=== PATIENT | male | born 1955 | race Two or more races ===

== ENCOUNTER 2020-05-07 09:46 | Outpatient (REF) | payer OTHER, SELFPAY | END 2020-05-07 09:47 | disposition home or self-care (01) | LOC: HO.HMGCLDS 09:46 | PROVIDERS: Visit Provider Internal Medicine | DX: Z20.828 Contact with and (suspected) exposure to other viral communicable diseases (principal) | CPT/HCPCS: U0003 ==

== ENCOUNTER 2020-09-10 08:23 | Outpatient (REF) | payer OTHER, SELFPAY ==
--- NOTE | ~2020-09-10 | US_ITS ---
EXAMINATION: US ABDOMEN COMPLETE CLINICAL INFORMATION: Right upper quadrant abdominal swelling and mass. COMPARISON: X-ray abdomen 06/07/2020. Ultrasound kidneys and bladder 05/31/2020 and 05/08/2017. KUB 02/10/2015 and 11/25/2014. TECHNIQUE: Real-time imaging of the abdominal viscera. Technically limited study secondary to bowel gas and body habitus. FINDINGS: PANCREAS: Not visualized ABDOMINAL AORTA: Not visualized INFERIOR VENA CAVA: Not visualized LIVER: Liver echotexture is increased. The liver is enlarged. The right lobe measures 26 cm in length. Evaluation of the liver is limited due to patient body habitus. No focal liver lesion is seen. There is no biliary duct dilatation. The main portal vein is patent with appropriate hepatopedal flow. GALLBLADDER: Normal. The gallbladder is physiologically distended without evidence of stones, sludge, polyps, wall thickening or pericholecystic fluid. COMMON BILE DUCT: Not well visualized. The visualized segment is normal in caliber measuring 0.6 cm in diameter. RIGHT KIDNEY: There is a 5 mm stone in the upper pole. There are 2 cysts measuring 4 cm in the lower pole and 1 x 1.5 cm in the lower pole. The latter cyst may have small focus of wall calcification. No hydronephrosis The kidney measures 13.2 cm in maximum dimension. LEFT KIDNEY: There is a 3 mm stone in the upper pole. No hydronephrosis or focal parenchymal lesions. The kidney measures 14.5 cm in maximum dimension. SPLEEN: There is a calcification in the spleen. The spleen measures 11.7 cm in maximum dimension. FREE FLUID: None. US/US abdomen complete IMPRESSION: Very limited exam due to patient body habitus. Enlarged echogenic liver probably representing fatty infiltration. Bilateral renal stones. Right renal cysts.
== END 2020-09-10 08:24 | disposition home or self-care (01) ==
LOC: HO.HMGCX 08:23
PROVIDERS: PCP Internal Medicine; Visit Provider Internal Medicine
DX: R19.01 Right upper quadrant abdominal swelling, mass and lump (principal)
CPT/HCPCS: 76700

== ENCOUNTER 2020-12-03 07:52 | Outpatient (REF) | payer OTHER, SELFPAY ==
[2020-12-03 11:32] LABS: MANUAL DIFF FLAG NO
[2020-12-03 11:51] LABS: Basophils Percent Auto 0.5 % (0-2); Eosinophils Absolute Auto 0.2 X10*3/uL (0.0-0.4); Eosinophils Percent Auto 2.9 % (0-4); Hematocrit 43.6 % (42-52); Hemoglobin 13.9 g/dl (14.0-18.0); Imm Gran Abs Auto 0.05 X10*3/uL (0.00-0.03); Imm Gran Pct Auto 0.6 % (0.0-0.4); Lymphocytes Absolute Auto 1.9 X10*3/uL (1.2-4.9); Lymphocytes Percent Auto 24.1 % (20-40); Mean Corpuscular HGB Conc 31.9 g/dl (31.0-36.0); Mean Corpuscular Hemoglobin 27.5 pg (27.0-33.0); Mean Corpuscular Volume 86.2 fL (80-98); Mean Platelet Volume 10.4 fL (9.4-12.4); Monocytes Absolute Auto 0.5 X10*3/uL (0.1-1.2); Monocytes Percent Auto 6.8 % (2-11); Neutrophils Absolute Auto 5.1 X10*3/uL (2.0-8.3); Neutrophils Percent Auto 65.1 % (45-73); Platelet Count 250 X10*3/uL (160-400); Red Blood Count 5.06 X10*6/uL (4.60-5.80); Red Cell Distribution Width 14.6 % (11.0-16.0); White Blood Count 7.9 X10*3/uL (4.8-10.8)
[2020-12-03 11:57] LABS: Alanine Aminotransferase 43 U/L (0-40); Alkaline Phosphatase 78 U/L (39-117); Anion Gap 15 (12-20); Aspartate Amino Transferase 25 U/L (5-37); Bilirubin Total 0.5 mg/dL (0.0-1.0); Blood Urea Nitrogen 11 mg/dL (9-16); Calcium 8.8 mg/dL (8.4-10.2); Carbon Dioxide 25 mmol/L (22-29); Chloride 103 mmol/L (96-108); Cholesterol 120 mg/dL; Estimated Glomerular Filt Rate > 60; Glucose Fasting 117 mg/dL (60-99); HDL Cholesterol 34 mg/dL; LDL Cholesterol Calculated 52 mg/dl; Sodium 139 mmol/L (135-145); Total Protein 6.7 g/dL (6.5-8.0); Triglycerides 171 mg/dL
[2020-12-03 12:24] LABS: Creatinine Urine 158.12 mg/dL
[2020-12-03 12:40] LABS: Microalbum/Creatinine Ratio Ur 545.7 ug/mg cr
== END 2020-12-03 07:53 | disposition home or self-care (01) ==
LOC: HO.HMGCLDS 07:52
PROVIDERS: PCP Internal Medicine; Visit Provider Internal Medicine
DX: Z00.01 Encounter for general adult medical examination with abnormal findings (principal); R19.01 Right upper quadrant abdominal swelling, mass and lump; E11.9 Type 2 diabetes mellitus without complications; E66.01 Morbid (severe) obesity due to excess calories; E78.5 Hyperlipidemia, unspecified; I10 Essential (primary) hypertension
CPT/HCPCS: 36415; 80053; 80061; 82043; 82306; 85025

== ENCOUNTER 2021-11-10 07:55 | Outpatient (REF) | payer OTHER, SELFPAY ==
[2021-11-10 11:07] LABS: MANUAL DIFF FLAG NO
[2021-11-10 11:20] LABS: Basophils Percent Auto 0.4 % (0-2); Eosinophils Absolute Auto 0.1 X10*3/uL (0.0-0.4); Eosinophils Percent Auto 1.9 % (0-4); Hemoglobin 15.7 g/dl (14.0-18.0); Imm Gran Abs Auto 0.04 X10*3/uL (0.00-0.03); Imm Gran Pct Auto 0.5 % (0.0-0.4); Lymphocytes Absolute Auto 2.5 X10*3/uL (1.2-4.9); Lymphocytes Percent Auto 33.4 % (20-40); Mean Corpuscular Hemoglobin 27.3 pg (27.0-33.0); Mean Corpuscular Volume 85.2 fL (80.0-98.0); Mean Platelet Volume 11.5 fL (9.4-12.4); Monocytes Absolute Auto 0.6 X10*3/uL (0.1-1.2); Monocytes Percent Auto 7.4 % (2-11); Neutrophils Absolute Auto 4.2 x10*3/uL (2.0-8.3); Neutrophils Percent Auto 56.4 % (45-73); Platelet Count 228 X10*3/uL (160-400); Red Blood Count 5.75 X10*6/uL (4.60-5.80); Red Cell Distribution Width 14.1 % (11.0-16.0); White Blood Count 7.4 X10*3/uL (4.8-10.8)
[2021-11-10 11:48] LABS: Estimated Average Glucose 341 mg/dL; Hemoglobin A1c % 13.5 %
[2021-11-10 11:54] LABS: Vitamin D 25-OH Total 9.3 ng/mL (>30)
[2021-11-10 11:58] LABS: Alanine Aminotransferase 36 U/L (0-40); Anion Gap 20 (12-20); Aspartate Amino Transferase 29 U/L (5-37); Blood Urea Nitrogen 19 mg/dL (9-16); Calcium 9.5 mg/dL (8.4-10.2); Carbon Dioxide 22 mmol/L (22-29); Chloride 96 mmol/L (96-108); Cholesterol 126 mg/dL; Estimated Glomerular Filt Rate > 60; HDL Cholesterol 27 mg/dL; Iron 108 mcg/dL (45-160); LDL Cholesterol Calculated 54 mg/dl; Percent Iron Saturation 29 % (15-50); Potassium 4.6 mmol/L (3.3-5.1); Sodium 133 mmol/L (135-145); Total Iron Binding Capacity 370 mcg/dL (228-428); Triglycerides 226 mg/dL; Unsaturated Iron Binding 262 ug/dL
[2021-11-10 12:04] LABS: Folate 19.9 ng/mL (> or = 4.0); Vitamin B12 1082 pg/mL (200-900)
[2021-11-10 12:35] LABS: Glucose Fasting 446 mg/dL (60-99)
== END 2021-11-10 07:56 | disposition home or self-care (01) ==
LOC: HO.HMGCLDS 07:55
PROVIDERS: Visit Provider Internal Medicine
DX: E11.9 Type 2 diabetes mellitus without complications (principal); E66.01 Morbid (severe) obesity due to excess calories; E78.5 Hyperlipidemia, unspecified; I10 Essential (primary) hypertension
CPT/HCPCS: 36415; 80048; 80061; 82306; 82607; 82746; 83036; 83540; 84450; 84460; 85025

== ENCOUNTER 2022-03-03 06:49 | Outpatient (REF) | payer OTHER, SELFPAY ==
[2022-03-03 11:55] LABS: Estimated Average Glucose 157 mg/dL; Hemoglobin A1c % 7.1 %
[2022-03-03 12:51] LABS: Alanine Aminotransferase 23 U/L (0-40); Anion Gap 18 (12-20); Aspartate Amino Transferase 19 U/L (5-37); Blood Urea Nitrogen 28 mg/dL (9-16); Calcium 9.3 mg/dL (8.4-10.2); Carbon Dioxide 24 mmol/L (22-29); Chloride 100 mmol/L (96-108); Cholesterol 112 mg/dL; Estimated Glomerular Filt Rate 46; Glucose Fasting 122 mg/dL (60-99); HDL Cholesterol 31 mg/dL; LDL Cholesterol Calculated 56 mg/dl; Potassium 4.4 mmol/L (3.3-5.1); Sodium 138 mmol/L (135-145); Triglycerides 128 mg/dL
[2022-03-03 12:57] LABS: Vitamin D 25-OH Total 63.1 ng/mL (>30)
== END 2022-03-03 06:50 | disposition home or self-care (01) ==
LOC: HO.HMGCLDS 06:49
PROVIDERS: PCP Internal Medicine; Visit Provider Internal Medicine
DX: E11.29 Type 2 diabetes mellitus with other diabetic kidney complication (principal); E55.9 Vitamin D deficiency, unspecified; E78.5 Hyperlipidemia, unspecified; I10 Essential (primary) hypertension
CPT/HCPCS: 36415; 80048; 80061; 82306; 83036; 84450; 84460

== ENCOUNTER 2022-05-26 08:28 | Outpatient (REF) | payer OTHER, SELFPAY ==
[2022-05-26 12:25] LABS: Creatinine Urine 137.11 mg/dL; Microalbum/Creatinine Ratio Ur 90.4 ug/mg cr
[2022-05-26 12:57] LABS: Estimated Average Glucose 134 mg/dL; Hemoglobin A1c % 6.3 %
[2022-05-26 14:59] LABS: Alanine Aminotransferase 26 U/L (0-40); Anion Gap 17 (12-20); Aspartate Amino Transferase 25 U/L (5-37); Blood Urea Nitrogen 25 mg/dL (9-16); Calcium 9.3 mg/dL (8.4-10.2); Carbon Dioxide 22 mmol/L (22-29); Chloride 107 mmol/L (96-108); Cholesterol 101 mg/dL; Estimated Glomerular Filt Rate > 60; Glucose Fasting 117 mg/dL (60-99); HDL Cholesterol 28 mg/dL; LDL Cholesterol Calculated 53 mg/dl; Potassium 4.5 mmol/L (3.3-5.1); Sodium 141 mmol/L (135-145); Triglycerides 100 mg/dL; Vitamin D 25-OH Total 36.8 ng/mL (>30)
== END 2022-05-26 08:29 | disposition home or self-care (01) ==
LOC: HO.HMGCLDS 08:28
PROVIDERS: PCP Internal Medicine; Visit Provider Internal Medicine
DX: E78.5 Hyperlipidemia, unspecified (principal); I10 Essential (primary) hypertension; E11.29 Type 2 diabetes mellitus with other diabetic kidney complication
CPT/HCPCS: 36415; 80048; 80061; 82043; 82306; 83036; 84450; 84460

== ENCOUNTER 2022-08-18 13:14 | Outpatient (AMB) | payer OTHER, SELFPAY ==
[2022-08-18 13:37] VITALS: BP 122/80; PULSE 82; O2SAT 95; BMI 44.1
--- NOTE | 2022-08-18 13:37 | A.OFFPC_ITS ---
Vital Signs 08/18/22 13:37 Height 5 ft 5 in Weight 265 lb BMI 44.1 BP 122/80 Blood Pressure Location Rt brachial Position Sitting Pulse 82 Pulse Source Pulse Oximeter Pulse Oximetry (%) 95 Oxygen Delivery Method Room Air Intake Visit Reasons: f/u on labs Intake Note: Pt is here today to f/u his labs from 05/2022 Allergies Seasonal Allergies Allergy (Mild, Verified 10/08/23 11:16) sneezing, runny nose Medication List - Last Reconciled 08/18/22 by Caitlyn Arreola MD atorvastatin 20 mg PO Q2D 90 days blood sugar diagnostic ([employer] Ultra Test strips) Test blood sugar 3 times per day lancets ([employer] Delica Lancets) test blood sugar 3 times per day lisinopril-hydrochlorothiazide 10-12.5 mg 1 tab PO DAILY metformin 1,000 mg (2 x 500 mg) PO BID metoprolol tartrate 25 mg PO BID 90 days Trulicity (dulaglutide) 0.75 mg (0.5 mL) subcut QWEEK NS venlafaxine ER 75 mg PO DAILY Tobacco use date assessed: 08/18/22 Fall risk assessment: No Falls in past year Last assessed Fall Risk: 08/18/22 HPI f/u on labs HPI Details 67-year-old male with diabetes mellitus, dyslipidemia hypertension, here today for his follow-up. [facility] Medical History Vitamin D deficiency Diabetic neuropathy associated with diabetes mellitus due to underlying condition Plantar callus Anemia Type 2 diabetes mellitus with other diabetic kidney complication Lumbago History of nephrolithiasis SYLVIA on CPAP Type 2 diabetes mellitus without complication, with no history of insulin use Morbid obesity Abdominal mass, RUQ (right upper quadrant) Surgical History H/O ventral hernia repair Family History Other No significant family history Social History Housing: Apartment Alcohol intake: never Patient Tobacco Use Status: Never used Tobacco e-Cigarette/Vaping Use: Never Used Current occupational status: disabled Cognitive needs: No Hearing needs: No Vision needs: No Questionnaire PHQ-9 Over the last 2 weeks, how often have you been bothered by any of the following problems? 1. Little interest or pleasure in doing things: several days 2. Feeling down, depressed, or hopeless: several days 3. Trouble falling or staying asleep, or sleeping too much: several days 4. Feeling tired or having little energy: several days 5. Poor appetite or overeating: not at all 6. Feeling bad about yourself - or that you are a failure or have let yourself or your family down: several days 7. Trouble concentrating on things, such as reading the newspaper or watching television: not at all 8. Moving or speaking so slowly that other people could have noticed. Or the opposite - being so fidgety or restless that you have been moving around a lot more than usual: several days 9. Thoughts that you would be better off or of hurting yourself in some way: several days Total score: 7 Depression Screening Interpretation: Positive (Currently on venlafaxine) Depression Screening Follow-up: Existing condition and In treatment Source: Developed by Drs. Asad Mon, Siobhan Carrillo, Jalil Grijalva and colleagues, with an educational billy from [employer]. Thrive Questionnaire Declines Thrive assessment: No Date Thrive assessed: 08/18/22 I am a: Patient What is your living situation today?: I have a steady place to live Within the past 12 months, did the food you bought not last and you didn't have the money to get more?: Never true Within the past 12 months, did you worry whether your food would run out before you got money to buy more?: Never true Do you have trouble paying for medicines?: No Do you have trouble getting transportation to medical appointments?: No Do you have trouble paying your heating and electricity bill?: No Do you have trouble taking care of your child, family member or friend?: No Do you have trouble with day-to-day activities such as bathing, preparing meals, shopping, managing finances, etc.?: No Are you currently unemployed and looking for a job?: No Are you interested in more education?: No AUDIT C Alcohol Use Questionnaire (AUDIT-C) 1. How often do you have a drink containing alcohol?: Never Total Score: 0 NINFA-7 AMB Questionnaire NINFA-7 Date NINFA - 7 assessed: 08/18/22 Feeling nervous, anxious, or on edge: 1 = Several days Not being able to stop or control worryin = Several days Worrying too much about different things: 1 = Several days Trouble relaxin = Several days Being so restless that it is hard to sit still: 0 = Not at all Becoming easily annoyed or irritable: 0 = Not at all Feeling afraid as if something awful might happen: 0 = Not at all Total NINFA-7 score (0-4 normal; 5-9 mild; 10-14 moderate; 15-21 severe): 4 Source: Developed by Drs. Asad Mon, Siobhan Carrillo, Jalil Grijalva and colleagues, with an educational billy from [employer]. Physical exam (Primary Care) Vital Signs: Last Vital Signs Pulse 82 08/18/22 13:37 BP 122/80 08/18/22 13:37 Pulse Ox 95 08/18/22 13:37 Oxygen Delivery Method Room Air 08/18/22 13:37 BMI result Body Mass Index 44.1 Tobacco/Smoking Status: Tobacco use Status Tobacco use date assessed 08/18/22 08/18/22 13:46 Patient Tobacco Use Status Never used Tobacco 08/18/22 13:46 e-Cigarette/Vaping Use Never Used 08/18/22 13:46 PHQ-9: PHQ-9 Score PHQ-9: Total score 7 08/18/22 14:12 Depression Screening Interpretation: Positive (Currently on venlafaxine) Depression Screening Follow-up: Existing condition and In treatment Thrive Assessment: Date of Thrive Assessment Date Thrive assessed 08/18/22 08/18/22 13:46 Results Reviewed Results Reviewed: Laboratory Tests 05/26/22 08:35 Estimat Average Glucose 134 Hemoglobin A1c % 6.3 Name: Waqar Sánchez Age/Sex: 67/M : 1955 Unit#: [id number] Attend Dr: Caitlyn Arreola MD Re05/26/22 Status: DEP REF Location: [facility] Disch: SPEC : [id number] [place]: 05/26/22 STATUS: COMP REQ : [id number] RECD: 05/26/22 [facility] DR: Caitlyn Arreola MD COMP: 05/26/22 ENTERED: 05/26/22 [facility] DR: ORDERED: Met Prof Fast, AST, ALT, Lipid Panel, Vitamin D 25-OH Test Result Flag Reference Sodium 141 135-145 mmol/L Potassium 4.5 3.3-5.1 mmol/L CL 107 96-108 mmol/L CO2 22 22-29 mmol/L Gap 17 12-20 BUN 25 H 9-16 mg/dL Creat 1.01 0.5-1.4 mg/dL EGFR > 60 NOTE: For -[place] individuals, multiply the result by 1.210. Chronic Kidney Disease: Estimated GFR < 60 mL/min/1.73m2 Severe Kidney Disease: Estimated GFR < 15 mL/min/1.73m2 FBS 117 H 60-99 mg/dL A fasting glucose from 100-125 mg/dl is considered impaired (pre-diabetes). CA 9.3 8.4-10.2 mg/dL AST (GOT) 25 5-37 U/L Slight Hemolysis ALT (GPT) 26 0-40 U/L Triglyceride 100 mg/dL Desirable Triglyceride: less than 150 mg/dL Borderline High Triglyceride 150-199 mg/dL High Triglyceride: 200-499 mg/dL Very High Triglyceride: greater than or equal to 5OO mg/dL Chol 101 mg/dL Desirable Cholesterol: less than 200 mg/dL Borderline High Cholesterol: 200-239 mg/dL High Cholesterol: greater than 239 mg/dL LDL Calculated 53 mg/dl Desirable LDL: less than 100 mg/dL Near Optimal/Above Optimal LDL: 110-129 mg/dL Borderline High LDL: 130-159 mg/dL High LDL: 160-189 mg/dL Very High LDL: greater than or equal to 190 mg/dL HDL 28 mg/dL Desirable HDL: greater than 40 mg/dL Note: This HDL assay may give artificially low results in patients with liver disease. Vit D 25-OH Tot 36.8 >30 ng/mL Health Based Reference Values* < 20 ng/mL Deficient 20-30 ng/mL Insufficient > 30 ng/mL Sufficient Laboratory Tests 05/26/22 08:40 Urine Creatinine 137.11 Urine Microalbumin 124.0 Microalb/Creat Ratio 90.4 Assessment and Plan Assessment & Plan (1) Diabetic neuropathy associated with diabetes mellitus due to underlying condition: Code(s): E08.40 - Diabetes mellitus due to underlying condition with diabetic neuropathy, unspecified Plan: 05/2022 lab results reviewed with patient, with sugar and hemoglobin A1c stable and at goal. Continue with Trulicity 0.75 mg weekly and metformin 1000 mg twice a day. continue to check fasting blood sugar at home, maintain log and bring to next appointment for review. Reinforced diabetic diet and regular exercise with patient. Counseled regarding importance of yearly diabetes retinopathy screening. Patient advised to inspect feet daily, for any signs of injury, callus or infection. Compliance with diet and regular exercise again stressed. Blood pressure goal is less than 130/80, goal LDL is less than 100 and goal hemoglobin A1c is less than 7% repeat labs again in a month (2) Type 2 diabetes mellitus with other diabetic kidney complication: Code(s): E11.29 - Type 2 diabetes mellitus with other diabetic kidney complication Plan: 05/2022 lab results reviewed with patient, with sugar and hemoglobin A1c stable and at goal. Continue with Trulicity 0.75 mg weekly and metformin 1000 mg twice a day. continue to check fasting blood sugar at home, maintain log and bring to next appointment for review. Reinforced diabetic diet and regular exercise with patient. Counseled regarding importance of yearly diabetes retinopathy screening. Patient advised to inspect feet daily, for any signs of injury, callus or infection. Compliance with diet and regular exercise again stressed. Blood pressure goal is less than 130/80, goal LDL is less than 100 and goal hemoglobin A1c is less than 7% repeat labs again in a month (3) Hyperlipidemia: Code(s): E78.5 - Hyperlipidemia, unspecified Plan: Reviewed fasting lipid profile from 05/2022 with patient with levels within normal limits . Continue atorvastatin 20 mg every other day , in addition to adherence to low-cholesterol diet and regular exercise, at least 30 minutes 3 to 4 times a week. Advised patient to make healthy food choices, eat more fruits, vegetables, whole grains, wild caught fish and low-fat dairy. Limit amount of meat and fried or fatty food products, as well as processed foods and fast foods. Fasting lipid panel ordered (4) Depression: Code(s): F32.9 - Major depressive disorder, single episode, unspecified Plan: Continue venlafaxine ER 75 mg (5) Hypertension: Code(s): I10 - Essential (primary) hypertension Plan: Blood pressure at goal of less than 130/80. Continue with current medication. Reinforced importance of following a low sodium diet, getting regular exercise, and lowering stress levels. Orders: Orders Lipid Panel 09/06/22 E08.40 - Diabetes mellitus due to underlying condition with diabetic neuropathy, unspecified, E11.29 - Type 2 diabetes mellitus with other diabetic kidney complication, E78.5 - Hyperlipidemia, unspecified, F32.9 - Major depressive disorder, single episode, unspecified, I10 - Essential (primary) hypertension Microalbumin, Random (w Creat) 09/06/22 E08.40 - Diabetes mellitus due to underlying condition with diabetic neuropathy, unspecified, E11.29 - Type 2 diabetes mellitus with other diabetic kidney complication, E78.5 - Hyperlipidemia, unspecified, F32.9 - Major depressive disorder, single episode, unspecified, I10 - Essential (primary) hypertension Aspartate Amino Transferase 09/06/22 E08.40 - Diabetes mellitus due to underl robin condition with diabetic neuropathy, unspecified, E11.29 - Type 2 diabetes mellitus with other diabetic kidney complication, E78.5 - Hyperlipidemia, unspecified, F32.9 - Major depressive disorder, single episode, unspecified, I10 - Essential (primary) hypertension Hemoglobin A1c 09/06/22 E08.40 - Diabetes mellitus due to underlying condition with diabetic neuropathy, unspecified, E11.29 - Type 2 diabetes mellitus with other diabetic kidney complication, E78.5 - Hyperlipidemia, unspecified, F32.9 - Major depressive disorder, single episode, unspecified, I10 - Essential (primary) hypertension Basic Metabolic Panel Fasting 09/06/22 E08.40 - Diabetes mellitus due to underlying condition with diabetic neuropathy, unspecified, E11.29 - Type 2 diabetes mellitus with other diabetic kidney complication, E78.5 - Hyperlipidemia, unspecified, F32.9 - Major depressive disorder, single episode, unspecified, I10 - Essential (primary) hypertension Alanine Aminotransferase 09/06/22 E08.40 - Diabetes mellitus due to underlying condition with diabetic neuropathy, unspecified, E11.29 - Type 2 diabetes mellitus with other diabetic kidney complication, E78.5 - Hyperlipidemia, unspecified, F32.9 - Major depressive disorder, single episode, unspecified, I10 - Essential (primary) hypertension Medications: Changed From Trulicity 0.75 mg (0.5 mL) subcut QWEEK 6 mL 1RF NS E11.29 - Type 2 diabetes mellitus with other diabetic kidney complication To Trulicity (dulaglutide) 0.75 mg (0.5 mL) subcut QWEEK 2.5 mL 5RF 30 days NS E11.29 - Type 2 diabetes mellitus with other diabetic kidney complication From metformin 1,000 mg (2 x 500 mg) PO BID 360 tabs 1RF E11.9 - Type 2 diabetes mellitus without complications To metformin 1,000 mg PO BID 180 tabs 3RF 3 months E11.9 - Type 2 diabetes mellitus without complications Refilled metoprolol tartrate 25 mg PO BID 180 tabs 1RF 90 days venlafaxine ER 75 mg PO DAILY 90 caps 4RF Coding Level of Care Code Est Pt Level 4 (66531) Complex EM visit Add On G2211 Diagnoses Diabetic neuropathy associated with diabetes mellitus due to underlying condition E08.40 Type 2 diabetes mellitus with other diabetic kidney complication E11.29 Hyperlipidemia E78.5 Depression F32.9 Hypertension I10
== END 2022-08-18 15:05 | disposition home or self-care (01) ==
LOC: HO.HMGC 13:14
PROVIDERS: PCP Internal Medicine; Visit Provider Internal Medicine
DX: E08.40 Diabetes mellitus due to underlying condition with diabetic neuropathy, unspecified (principal); E11.29 Type 2 diabetes mellitus with other diabetic kidney complication; E78.5 Hyperlipidemia, unspecified; F32.9 Major depressive disorder, single episode, unspecified; I10 Essential (primary) hypertension
CPT/HCPCS: 99499

== ENCOUNTER 2023-01-23 06:01 | Outpatient (REF) | payer OTHER, SELFPAY ==
[2023-01-23 12:12] LABS: Estimated Average Glucose 160 mg/dL; Hemoglobin A1c % 7.2 %
[2023-01-23 12:30] LABS: Creatinine Urine 123.86 mg/dL
[2023-01-23 12:38] LABS: Alanine Aminotransferase 22 U/L (0-40); Anion Gap 11 (12-20); Aspartate Amino Transferase 18 U/L (5-37); Blood Urea Nitrogen 20 mg/dL (9-16); Calcium 9.7 mg/dL (8.4-10.2); Carbon Dioxide 27 mmol/L (22-29); Chloride 104 mmol/L (96-108); Cholesterol 96 mg/dL; Estimated Glomerular Filt Rate > 60; Glucose Fasting 137 mg/dL (60-99); HDL Cholesterol 29 mg/dL; LDL Cholesterol Calculated 47 mg/dl; Potassium 3.7 mmol/L (3.3-5.1); Sodium 138 mmol/L (135-145); Triglycerides 100 mg/dL
[2023-01-23 12:47] LABS: Microalbum/Creatinine Ratio Ur 678.9 ug/mg cr
== END 2023-01-23 06:02 | disposition home or self-care (01) ==
LOC: HO.HMGCLDS 06:01
PROVIDERS: PCP Internal Medicine; Visit Provider Internal Medicine
DX: E11.29 Type 2 diabetes mellitus with other diabetic kidney complication (principal); F32.9 Major depressive disorder, single episode, unspecified; I10 Essential (primary) hypertension; E78.5 Hyperlipidemia, unspecified
CPT/HCPCS: 36415; 80048; 80061; 82043; 83036; 84450; 84460

== ENCOUNTER 2023-02-15 14:39 | Outpatient (AMB) | payer OTHER, SELFPAY ==
--- NOTE | 2023-02-15 14:51 | A.OFFPC_ITS ---
Vital Signs 02/15/23 14:57 Height 5 ft 5 in Weight 265 lb BMI 44.1 BP 140/86 H Blood Pressure Location Rt brachial Position Sitting Pulse 73 Pulse Source Pulse Oximeter Pulse Oximetry (%) 98 Oxygen Delivery Method Room Air Intake Visit Reasons: 6 month follow up Lipids, HTN DM Intake Note: Pt is here today for his 6mo. f/u lipids, HTN and DM Allergies Seasonal Allergies Allergy (Mild, Verified 02/15/23 15:11) sneezing, runny nose Medication List - Last Reconciled 02/15/23 by Caitlyn Arreola MD atorvastatin 20 mg PO Q2D 90 days blood sugar diagnostic ([employer] Ultra Test strips) Test blood sugar 3 times per day lancets ([employer] Delica Lancets) test blood sugar 3 times per day lisinopril-hydrochlorothiazide 10-12.5 mg 1 tab PO DAILY metformin 1,000 mg PO BID 3 months metoprolol tartrate 25 mg PO BID 90 days Trulicity (dulaglutide) 0.75 mg (0.5 mL) subcut QWEEK 30 days NS venlafaxine ER 75 mg PO DAILY Tobacco use date assessed: 02/15/23 Fall risk assessment: No Falls in past year Last assessed Fall Risk: 02/15/23 Dental Screening Dental Screen Date: 02/15/23 Did you have a dental visit in the last 12 months?: No Was dental information given to patient?: Patient declined HPI 6 month follow up Lipids, HTN DM HPI0 Details 67-year-old male with diabetes mellitus, dyslipidemia hypertension, here today for his follow-up. Has not been very compliant with his diet, nor has she been getting much exercise. Has gained weight, with blood pressure elevated on today's visit. Has been compliant with his medications, no new complaints at present time. [facility] Medical History (Updated 02/15/23 @ 15:22 by Caitlyn Arreola MD) Abdominal mass, RUQ (right upper quadrant) Anemia Diabetic neuropathy associated with diabetes mellitus due to underlying condition History of nephrolithiasis Lumbago Morbid obesity SYLVIA on CPAP Plantar callus Type 2 diabetes mellitus with other diabetic kidney complication Type 2 diabetes mellitus without complication, with no history of insulin use Vitamin D deficiency Surgical History H/O ventral hernia repair Family History Other No significant family history Social History Housing: Apartment Alcohol intake: never Patient Tobacco Use Status: Never used Tobacco e-Cigarette/Vaping Use: Never Used Current occupational status: disabled Cognitive needs: No Hearing needs: No Vision needs: No Questionnaire Thrive Questionnaire Date Thrive assessed: 08/18/22 NINFA-7 AMB Questionnaire NINFA-7 Date NINFA - 7 assessed: 08/18/22 Source: Developed by Drs. Asad Mon, Siobhan Carrillo, Jalil Grijalva and colleagues, with an educational billy from [employer]. Review of Systems Const Denies body aches, Denies fever(s), Denies headache(s), Denies weakness, Denies weight gain and Denies weight loss Eyes Denies change in vision ENT Denies dizziness, Denies headache(s), Denies nasal congestion, Denies nasal discharge and Denies sore throat Card Denies chest pain, Denies lightheadedness and Denies dyspnea Resp Denies chest congestion, Denies cough and Denies dyspnea GI Denies abdominal pain, Denies change in bowel habits and Denies heartburn Denies hematuria, Denies difficulty urinating, Denies dysuria and Denies urinary urgency Musc Reports no additional complaints Skin/Breast Denies lesions and Denies rash Neuro Denies dizziness, Denies headache(s) and Denies weakness Endo Reports no additional complaints Kevan/Lymph Denies easy bleeding and Denies easy bruising Physical exam (Primary Care) Vital Signs: Last Vital Signs Pulse 73 02/15/23 14:57 BP 140/86 H 02/15/23 14:57 Pulse Ox 98 02/15/23 14:57 Oxygen Delivery Method Room Air 02/15/23 14:57 BMI result Body Mass Index 44.1 Tobacco/Smoking Status: Tobacco use Status Tobacco use date assessed 02/15/23 02/15/23 14:52 Patient Tobacco Use Status Never used Tobacco 02/15/23 14:51 e-Cigarette/Vaping Use Never Used 02/15/23 14:51 Thrive Assessment: Date of Thrive Assessment Date Thrive assessed 08/18/22 02/15/23 14:51 Const General: no acute distress and alert Nutritional Appearance: obese morbidly obese Orientation/consciousness: patient oriented x3 HENMT Ears: external ears normal General nose exam: Normal external nose present and No nasal discharge present Mouth: oropharynx normal and moist mucous membranes Eyes General: appearance normal, both eyes and all related structures Neck Neck: Yes full ROM, Yes no lymphadenopathy and Yes supple Resp Effort & Inspection: normal respiratory effort and able to speak in complete sentences Auscultation: clear to auscultation bilaterally Cardio Rate: regular rate Rhythm: regular rhythm Heart sounds: S1 normal heart sound present and S2 normal heart sound present GI Palpation (GI): Soft to palpation, nontender and no masses Auscultation: normal bowel sounds Neuro General: patient oriented x3, moves all extremities, no focal motor deficits and CN's II-XI intact bilaterally Extrem General: Yes full ROM, Yes no joint enlargement, Yes no pedal edema, Yes no calf tenderness and Yes normal gait Results Reviewed Results Reviewed: ENTERED: 01/23/[address]: ORDERED: Met Prof Fast, AST, ALT, Lipid Panel Test Result Flag Reference Site Sodium 138 135-145 mmol/L Potassium 3.7 3.3-5.1 mmol/L CL 104 96-108 mmol/L CO2 27 22-29 mmol/L Gap 11 L 12-20 BUN 20 H 9-16 mg/dL Creat 0.81 0.5-1.4 mg/dL EGFR > 60 NOTE: For -[place] individuals, multiply the result by 1.210. Chronic Kidney Disease: Estimated GFR < 60 mL/min/1.73m2 Severe Kidney Disease: Estimated GFR < 15 mL/min/1.73m2 FBS 137 H 60-99 mg/dL A fasting glucose of 126 mg/dl or greater on more than one occasion is considered diagnostic of diabetes. CA 9.7 8.4-10.2 mg/dL AST (GOT) 18 5-37 U/L ALT (GPT) 22 0-40 U/L Triglyceride 100 mg/dL Desirable Triglyceride: less than 150 mg/dL Borderline High Triglyceride 150-199 mg/dL High Triglyceride: 200-499 mg/dL Very High Triglyceride: greater than or equal to 5OO mg/dL Chol 96 mg/dL Desirable Cholesterol: less than 200 mg/dL Borderline High Cholesterol: 200-239 mg/dL High Cholesterol: greater than 239 mg/dL LDL Calculated 47 mg/dl Desirable LDL: less than 100 mg/dL Near Optimal/Above Optimal LDL: 110-129 mg/dL Borderline High LDL: 130-159 mg/dL High LDL: 160-189 mg/dL Very High LDL: greater than or equal to 190 mg/dL HDL 29 mg/dL Desirable HDL: greater than 40 mg/dL Note: This HDL assay may give artificially low results in patients with liver disease. Laboratory Tests 01/23/23 01/23/23 06:07 06:07 Estimat Average Glucose 160 Hemoglobin A1c % 7.2 Urine Creatinine 123.86 Urine Microalbumin 841.0 Microalb/Creat Ratio 678.9 Assessment and Plan Assessment & Plan (1) Type 2 diabetes mellitus with other diabetic kidney complication: Code(s): E11.29 - Type 2 diabetes mellitus with other diabetic kidney complication Plan: I hemoglobin A1c higher today as compared to last check at 7.2%. Will continue on current treatment with metformin and Trulicity, stressed importance of adhering to recommended diet and getting regular exercise. As well as getting yearly eye check for diabetes retinopathy screening. (2) Hyperlipidemia: Code(s): E78.5 - Hyperlipidemia, unspecified (3) Hypertension: Code(s): I10 - Essential (primary) hypertension Plan: Hypertension mildly elevated today, continue lisinopril-hydrochlorothiazide 10- 12.5 mg daily and metoprolol tartrate 25 mg twice a day. Blood pressure goal is less than 130/80. . Reinforced importance of following a low sodium diet, getting regular exercise, and lowering stress levels. (4) Depression: Code(s): F32.9 - Major depressive disorder, single episode, unspecified Plan: Stable controlled on venlafaxine ER (5) Morbid obesity: Code(s): E66.01 - Morbid (severe) obesity due to excess calories Orders: Orders Hemoglobin A1c 05/09/23 E08.40 - Diabetes mellitus due to underlying condition with diabetic neuropathy, unspecified, E11.29 - Type 2 diabetes mellitus with other diabetic kidney complication, E66.01 - Morbid (severe) obesity due to excess calories, E78.5 - Hyperlipidemia, unspecified, F32.9 - Major depressive disorder, single episode, unspecified, I10 - Essential (primary) hypertension Alanine Aminotransferase 05/09/23 E08.40 - Diabetes mellitus due to underlying condition with diabetic neuropathy, unspecified, E11.29 - Type 2 diabetes mellitus with other diabetic kidney complication, E66.01 - Morbid (severe) obesity due to excess calories, E78.5 - Hyperlipidemia, unspecified, F32.9 - Major depressive disorder, single episode, unspecified, I10 - Essential (primary) hypertension Aspartate Amino Transferase 05/09/23 E08.40 - Diabetes mellitus due to underlying condition with diabetic neuropathy, unspecified, E11.29 - Type 2 diabetes mellitus with other diabetic kidney complication, E66.01 - Morbid (severe) obesity due to excess calories, E78.5 - Hyperlipidemia, unspecified, F32.9 - Major depressive disorder, single episode, unspecified, I10 - Essential (primary) hypertension Basic Metabolic Panel Fasting 05/09/23 E08.40 - Diabetes mellitus due to underlying condition with diabetic neuropathy, unspecified, E11.29 - Type 2 diabetes mellitus with other diabetic kidney complication, E66.01 - Morbid (se jagruti) obesity due to excess calories, E78.5 - Hyperlipidemia, unspecified, F32.9 - Major depressive disorder, single episode, unspecified, I10 - Essential (primary) hypertension Lipid Panel 05/09/23 E08.40 - Diabetes mellitus due to underlying condition with diabetic neuropathy, unspecified, E11.29 - Type 2 diabetes mellitus with other diabetic kidney complication, E66.01 - Morbid (severe) obesity due to excess calories, E78.5 - Hyperlipidemia, unspecified, F32.9 - Major depressive disorder, single episode, unspecified, I10 - Essential (primary) hypertension Medications: Refilled Trulicity (dulaglutide) 0.75 mg (0.5 mL) subcut QWEEK 30 days 2.5 mL 5RF NS E11.29 - Type 2 diabetes mellitus with other diabetic kidney complication Coding Level of Care Code Est Pt Level 4 (06937) Diagnoses Type 2 diabetes mellitus with other diabetic kidney complication E11.29 Hyperlipidemia E78.5 Hypertension I10 Depression F32.9 Morbid obesity E66.01
[2023-02-15 14:57] VITALS: BP 140/86; PULSE 73; O2SAT 98; BMI 44.1
== END 2023-02-15 15:24 | disposition home or self-care (01) ==
PROVIDERS: Visit Provider Internal Medicine
DX: E11.29 Type 2 diabetes mellitus with other diabetic kidney complication (principal); I10 Essential (primary) hypertension; E66.01 Morbid (severe) obesity due to excess calories; Z68.41 Body mass index [BMI] 40.0-44.9, adult; F32.9 Major depressive disorder, single episode, unspecified; E78.5 Hyperlipidemia, unspecified
CPT/HCPCS: 99214

== ENCOUNTER 2023-05-16 06:03 | Outpatient (REF) | payer OTHER, SELFPAY ==
[2023-05-16 11:42] LABS: Estimated Average Glucose 171 mg/dL; Hemoglobin A1c % 7.6 % (<6.0)
[2023-05-16 11:58] LABS: Alanine Aminotransferase 25 U/L (0-40); Anion Gap 16 (12-20); Aspartate Amino Transferase 16 U/L (5-37); Blood Urea Nitrogen 22 mg/dL (9-16); Calcium 9.6 mg/dL (8.4-10.2); Carbon Dioxide 25 mmol/L (22-29); Chloride 104 mmol/L (96-108); Cholesterol 127 mg/dL (<200); Estimated Glomerular Filt Rate > 60; Glucose Fasting 191 mg/dL (60-99); HDL Cholesterol 31 mg/dL (>40); LDL Cholesterol Calculated 68 mg/dL (<100); Potassium 4.4 mmol/L (3.3-5.1); Sodium 141 mmol/L (135-145); Triglycerides 142 mg/dL (<150)
== END 2023-05-16 06:04 | disposition home or self-care (01) ==
LOC: HO.HMGCLDS 06:03
PROVIDERS: PCP Internal Medicine; Visit Provider Internal Medicine
DX: E11.29 Type 2 diabetes mellitus with other diabetic kidney complication (principal); E11.40 Type 2 diabetes mellitus with diabetic neuropathy, unspecified; E78.5 Hyperlipidemia, unspecified; F32.9 Major depressive disorder, single episode, unspecified; I10 Essential (primary) hypertension; E66.01 Morbid (severe) obesity due to excess calories
CPT/HCPCS: 36415; 80048; 80061; 83036; 84450; 84460

== ENCOUNTER 2023-05-29 13:50 | Outpatient (AMB) | payer OTHER, SELFPAY ==
--- NOTE | 2023-05-29 13:53 | A.OFFPC_ITS ---
Vital Signs 05/29/23 13:54 Height 5 ft 5 in Weight 255 lb BMI 42.4 BP 130/74 Blood Pressure Location Lt brachial Position Sitting Pulse 80 Pulse Source Pulse Oximeter Pulse Oximetry (%) 98 Oxygen Delivery Method Room Air Intake Visit Reasons: 3 mo. f/u DM Intake Note: pt is here to follow up on his lab results Allergies Seasonal Allergies Allergy (Mild, Verified 05/29/23 14:07) sneezing, runny nose Medication List - Last Reconciled 05/29/23 by Caitlyn Arreola MD atorvastatin 20 mg PO Q2D 90 days blood sugar diagnostic ([employer] Ultra Test strips) Test blood sugar 3 times per day lancets (OneTouch Delica Lancets) test blood sugar 3 times per day lisinopril-hydrochlorothiazide 10-12.5 mg 1 tab PO DAILY metformin 1,000 mg PO BID 3 months metoprolol tartrate 25 mg PO BID 90 days Trulicity (dulaglutide) 0.75 mg (0.5 mL) subcut QWEEK 30 days NS venlafaxine ER 75 mg PO DAILY Tobacco use date assessed: 05/29/23 Fall risk assessment: No Falls in past year Last assessed Fall Risk: 05/29/23 Dental Screening Dental Screen Date: 05/29/23 Did you have a dental visit in the last 12 months?: Yes Did you have a dental problem in the last 6 months where you did not have access to dental care?: No Was dental information given to patient?: Patient has dentist HPI 3 mo. f/u DM HPI Details 68-year-old male with diabetes mellitus currently on metformin 1000 mg 1 tab twice a day and Trulicity 0.75 mg injected weekly; has hyperlipidemia, currently on atorvastatin 20 mg taken 1 tablet every other day, and has Hypertension, on lisinopril-HCTZ 10-12.5 mg taken 1 day plus metoprolol tartrate 25 mg 1 tablet twice a day, here today for a follow-up. He has been compliant with taking his medications and has been following recommended diet. Has lost a significant amount of weight compared to last check. Diabetes control however is slipping, now with hemoglobin A1c at 7.6%., fasting lipids are within normal limits. [facility] Medical History (Updated 05/29/23 @ 14:29 by Caitlyn Arreola MD) Vitamin D deficiency Diabetic neuropathy associated with diabetes mellitus due to underlying condition Plantar callus Anemia Type 2 diabetes mellitus with other diabetic kidney complication Lumbago History of nephrolithiasis SYLVIA on CPAP Type 2 diabetes mellitus without complication, with no history of insulin use Morbid obesity Abdominal mass, RUQ (right upper quadrant) Surgical History H/O ventral hernia repair Family History Other No significant family history Housing: Apartment Alcohol intake: never Patient Tobacco Use Status: Never used Tobacco e-Cigarette/Vaping Use: Never Used Current occupational status: disabled Cognitive needs: No Hearing needs: No Vision needs: No Questionnaire PHQ-9 Over the last 2 weeks, how often have you been bothered by any of the following problems? 1. Little interest or pleasure in doing things: not at all 2. Feeling down, depressed, or hopeless: not at all 3. Trouble falling or staying asleep, or sleeping too much: not at all 4. Feeling tired or having little energy: several days 5. Poor appetite or overeating: not at all 6. Feeling bad about yourself - or that you are a failure or have let yourself or your family down: not at all 7. Trouble concentrating on things, such as reading the newspaper or watching t elevision: not at all 8. Moving or speaking so slowly that other people could have noticed. Or the opposite - being so fidgety or restless that you have been moving around a lot more than usual: not at all 9. Thoughts that you would be better off or of hurting yourself in some way: not at all Total score: 1 Depression Screening Interpretation: Negative Depression Screening Done: Yes 42687 - PHQ-9 Billing: Yes Source: Developed by Drs. Asad Mon, Siobhan Carrillo, Jalil Grijalva and colleagues, with an educational billy from [employer]. Thrive Questionnaire Date Thrive assessed: 05/29/23 I am a: Patient What is your living situation today?: I have a steady place to live Within the past 12 months, did the food you bought not last and you didn't have the money to get more?: Never true Within the past 12 months, did you worry whether your food would run out before you got money to buy more?: Never true Do you have trouble paying for medicines?: No Do you have trouble getting transportation to medical appointments?: No Do you have trouble paying your heating and electricity bill?: No Do you have trouble taking care of your child, family member or friend?: No Do you have trouble with day-to-day activities such as bathing, preparing meals, shopping, managing finances, etc.?: No Are you currently unemployed and looking for a job?: No Are you interested in more education?: No AUDIT C Alcohol Use Questionnaire (AUDIT-C) 1. How often do you have a drink containing alcohol?: Never Total Score: 0 NINFA-7 AMB Questionnaire NINFA-7 Date NINFA - 7 assessed: 08/18/22 Source: Developed by Drs. Asad Mon, Siobhan Carrillo, Jalil Grijalva and colleagues, with an educational billy from [employer]. Review of Systems Const Denies body aches, Denies fever(s), Denies headache(s), Denies weakness and Reports weight loss Eyes Denies change in vision ENT Denies dizziness, Denies headache(s), Denies nasal congestion, Denies nasal discharge and Denies sore throat Card Denies chest pain, Denies lightheadedness and Denies dyspnea Resp Denies chest congestion, Denies cough and Denies dyspnea GI Denies abdominal pain, Denies change in bowel habits and Denies heartburn Denies hematuria, Denies difficulty urinating, Denies dysuria and Denies urinary urgency Musc Reports no additional complaints Skin/Breast Denies lesions and Denies rash Neuro Denies dizziness, Denies headache(s) and Denies weakness Endo Reports no additional complaints Kevan/Lymph Denies easy bleeding and Denies easy bruising Physical exam (Primary Care) Vital Signs: Last Vital Signs Pulse 80 05/29/23 13:54 BP 130/74 05/29/23 13:54 Pulse Ox 98 05/29/23 13:54 Oxygen Delivery Method Room Air 05/29/23 13:54 BMI result Body Mass Index 42.4 Tobacco/Smoking Status: Tobacco use Status Tobacco use date assessed 05/29/23 05/29/23 14:00 Patient Tobacco Use Status Never used Tobacco 05/29/23 14:00 e-Cigarette/Vaping Use Never Used 05/29/23 14:00 Depression Screening Interpretation: Negative Thrive Assessment: Date of Thrive Assessment Date Thrive assessed 08/18/22 05/29/23 14:00 Const General: no acute distress and alert Nutritional Appearance: obese morbidly obese Orientation/consciousness: patient oriented x3 HENMT Ears: external ears normal General nose exam: Normal external nose present and No nasal discharge present Mouth: oropharynx normal and moist mucous membranes Eyes General: appearance normal, both eyes and all related structures Neck Neck: Yes full ROM, Yes no lymphadenopathy and Yes supple Resp Effort & Inspection: normal respiratory effort and able to speak in complete sentences Auscultation: clear to auscultation bilaterally Cardio Rate: regular rate Rhythm: regular rhythm Heart sounds: S1 normal heart sound present and S2 normal heart sound present GI Palpation (GI): Soft to palpation, nontender and no masses Auscultation: normal bowel sounds Neuro General: patient oriented x3, moves all extremities, no focal motor deficits and CN's II-XI intact bilaterally Extrem General: Yes full ROM, Yes no joint enlargement, Yes no pedal edema, Yes no calf tenderness and Yes normal gait Psych Appearance: grossly normal and well kempt Mental Status: mental status grossly normal Speech and movement: Normal speech and movement present Affect: normal affect Attitude: cooperative Thought process: Normal thought process present Thought content: Normal thought content present Results Reviewed Results Reviewed: RUN: 05/29/23 7595 PAGE 1 [facility] [address] [place] [id number] Cyber Security Consultant: Britton Chahal M.D. Specimen Inquiry Name: Waqar Sánchez Age/Sex: 67/M : 1955 Unit#: [id number] Attend Dr: Caitlyn Arreola MD Re05/16/23 Status: DEP REF Location: [facility] Disch: SPEC : [id number] [place]: 05/16/23 STATUS: COMP REQ : [id number] RECD: 05/16/23-[address]: Caitlyn Arreola MD COMP: 05/16/23 ENTERED: 05/16/23 [facility] DR: ORDERED: Met Prof Fast, AST, ALT, Lipid Panel Test Result Flag Reference Site Sodium 141 135-145 mmol/L Potassium 4.4 3.3-5.1 mmol/L CL 104 96-108 mmol/L CO2 25 22-29 mmol/L Gap 16 12-20 BUN 22 H 9-16 mg/dL Creat 0.86 0.5-1.4 mg/dL EGFR > 60 NOTE: For -Lao individuals, multiply the result by 1.210. Chronic Kidney Disease: Estimated GFR < 60 mL/min/1.73m2 Severe Kidney Disease: Estimated GFR < 15 mL/min/1.73m2 FBS 191 H 60-99 mg/dL A fasting glucose of 126 mg/dl or greater on more than one occasion is considered diagnostic of diabetes. CA 9.6 8.4-10.2 mg/dL AST (GOT) 16 5-37 U/L ALT (GPT) 25 0-40 U/L Triglyceride 142 <150 mg/dL Desirable Triglyceride: less than 150 mg/dL Borderline High Triglyceride 150-199 mg/dL High Triglyceride: 200-499 mg/dL Very High Triglyceride: greater than or equal to 5OO mg/dL Cholesterol 127 <200 mg/dL Desirable Cholesterol: less than 200 mg/dL Borderline High Cholesterol: 200-239 mg/dL High Cholesterol: greater than 239 mg/dL LDL Calculated 68 <100 mg/dL Desirable LDL: less than 100 mg/dL Near Optimal/Above Optimal LDL: 110-129 mg/dL Borderline High LDL: 130-159 mg/dL High LDL: 160-189 mg/dL Very High LDL: greater than or equal to 190 mg/dL HDL 31 L >40 mg/dL Desirable HDL: greater than 40 mg/dL Note: This HDL assay may give artificially low results in patients with liver disease. Assessment and Plan Assessment & Plan (1) Diabetic neuropathy associated with diabetes mellitus due to underlying condition: Code(s): E08.40 - Diabetes mellitus due to underlying condition with diabetic neuropathy, unspecified Plan: Diabetes not well controlled with hemoglobin A1c today at 7.6%. Will continue on metformin 1000 mg 1 tablet twice a day and increased dose of Trulicity to 1.5 mg once a week. Stressed importance of following recommended diet and getting regular exercise. Reminded to get his diabetes retinopathy screening done yearly. Advised to get his COVID booster, up-to-date with his flu shot and pneumonia vaccine (2) Depression: Code(s): F32.9 - Major depressive disorder, single episode, unspecified Qualifiers: Depression Type: major depressive disorder Major depression recurrence: recurrent Active/Remission status: in full remission Qualified Code(s): F33.42 - Major depressive disorder, recurrent, in full remission Plan: Continue venlafaxine, refill sent (3) Hyperlipidemia: Code(s): E78.5 - Hyperlipidemia, unspecified Qualifiers: Hyperlipidemia type: pure hypercholesterolemia Qualified Code(s): E78.00 - Pure hypercholesterolemia, unspecified Plan: Reviewed recent fasting lipid profile with patient with levels within normal limit . Continue with atorvastatin 20 mg taken 1 every other day , in addition to adherence to low-cholesterol diet and regular exercise, at least 30 minutes 3 to 4 times a week. Advised patient to make healthy food choices, eat more fruits, vegetables, whole grains, wild caught fish and low-fat dairy. Limit amount of meat and fried or fatty food products, as well as processed foods and fast foods. Follow-up scheduled with repeat fasting lipid panel in 3 months. (4) Hypertension: Code(s): I10 - Essential (primary) hypertension Qualifiers: Hypertension type: primary hypertension Qualified Code(s): I10 - Essential (primary) hypertension Plan: Blood pressure at goal of less than 130/80. Continue with current medication. Reinforced importance of following a low sodium diet, getting regular exercise, and lowering stress levels. Orders: Orders Alanine Aminotransferase 09/07/23 E08.40 - Diabetes mellitus due to underlying condition with diabetic neuropathy, unspecified, E55.9 - Vitamin D deficiency, unspecified, E78.5 - Hyperlipidemia, unspecified, F32.9 - Major depressive disorder, single episode, unspecified, I10 - Essential (primary) hypertension Lipid Panel 09/07/23 E08.40 - Diabetes mellitus due to underlying condition with diabetic neuropathy, unspecified, E55.9 - Vitamin D deficiency, unspecified, E78.5 - Hyperlipidemia, unspecified, F32.9 - Major depressive disorder, single episode, unspecified, I10 - Essential (primary) hypertension Aspartate Amino Transferase 09/07/23 E08.40 - Diabetes mellitus due to underlying condition with diabetic neuropathy, unspecified, E55.9 - Vitamin D deficiency, unspecified, E78.5 - Hyperlipidemia, unspecified, F32.9 - Major depressive disorder, single episode, unspecified, I10 - Essential (primary) hypertension Comprehensive [place]. Panel Fast 09/07/23 E08.40 - Diabetes mellitus due to underlying condition with diabetic neuropathy, unspecified, E55.9 - Vitamin D deficiency, unspecified, E78.5 - Hyperlipidemia, unspecified, F32.9 - Major depressive disorder, single episode, unspecified, I10 - Essential (primary) hypertension Hemoglobin A1c 09/07/23 E08.40 - Diabetes mellitus due to underlying condition with diabetic neuropathy, unspecified, E55.9 - Vitamin D deficiency, unspecified, E78.5 - Hyperlipidemia, unspecified, F32.9 - Major depressive disorder, single episode, unspecified, I10 - Essential (primary) hypertension Microalbumin, Random (w Creat) 09/07/23 E08.40 - Diabetes mellitus due to underlying condition with diabetic neuropathy, unspecified, E55.9 - Vitamin D deficiency, unspecified, E78.5 - Hyperlipidemia, unspecified, F32.9 - Major depressive disorder, single episode, unspecified, I10 - Essential (primary) hypertension Vitamin D 25-OH Total 09/07/23 E08.40 - Diabetes mellitus due to underlying condition with diabetic neuropathy, unspecified, E55.9 - Vitamin D deficiency, unspecified, E78.5 - Hyperlipidemia, unspecified, F32.9 - Major depressive disorder, single episode, unspecified, I10 - Essential (primary) hypertension Medications: Changed From lancets (OneTouch Delica Lancets) test blood sugar 3 times per day 300 ea 3RF E08.40 - Diabetes mellitus due to underlying condition with diabetic neuropathy, unspecified To lancets test blood sugar 3 times per day 300 ea 3RF E08.40 - Diabetes mellitus due to underlying condition with diabetic neuropathy, unspecified From Stephanieity (dulaglutide) 0.75 mg (0.5 mL) subcut QWEEK 30 days 2.5 mL 5RF NS E11.29 - Type 2 diabetes mellitus with other diabetic kidney complication To dulaglutide 1.5 mg (0.5 mL) subcut QWEEK 2 mL 5RF 30 days E11.29 - Type 2 diabetes mellitus with other diabetic kidney complication Refilled lisinopril-hydrochlorothiazide 10-12.5 mg 1 tab PO DAILY 90 tabs 3RF venlafaxine ER 75 mg PO DAILY 90 caps 4RF atorvastatin 20 mg PO Q2D 45 tabs 3RF 90 days blood sugar diagnostic ([employer] (deja mi) Ultra Test strips) Test blood sugar 3 times per day 300 ea 3RF E08.40 - Diabetes mellitus due to underlying condition with diabetic neuropathy, unspecified metformin 1,000 mg PO BID 180 tabs 3RF 3 months E11.9 - Type 2 diabetes mellitus without complications metoprolol tartrate 25 mg PO BID 180 tabs 1RF 90 days Coding Level of Care Code Est Pt Level 4 (96199) Diagnoses Diabetic neuropathy associated with diabetes mellitus due to underlying condition E08.40 Recurrent major depressive disorder, in full remission F33.42 Depression Type: major depressive disorder Major depression recurrence: recurrent Active/Remission status: in full remission Pure hypercholesterolemia E78.00 Hyperlipidemia type: pure hypercholesterolemia Primary hypertension I10 Hypertension type: primary hypertension
[2023-05-29 13:54] VITALS: BP 130/74; PULSE 80; O2SAT 98; BMI 42.4
== END 2023-05-29 15:21 | disposition home or self-care (01) ==
LOC: HO.HMGC 13:50
PROVIDERS: PCP Internal Medicine; Visit Provider Internal Medicine
DX: E11.29 Type 2 diabetes mellitus with other diabetic kidney complication (principal); F33.42 Major depressive disorder, recurrent, in full remission; E78.00 Pure hypercholesterolemia, unspecified; I10 Essential (primary) hypertension
CPT/HCPCS: 99214

== ENCOUNTER 2023-09-04 06:20 | Outpatient (REF) | payer OTHER, SELFPAY ==
[2023-09-04 11:13] LABS: Alanine Aminotransferase 29 U/L (0-40); Alkaline Phosphatase 63 U/L (39-117); Anion Gap 13 (12-20); Aspartate Amino Transferase 17 U/L (5-37); Bilirubin Total 0.4 mg/dL (0.0-1.0); Blood Urea Nitrogen 22 mg/dL (9-16); Calcium 9.7 mg/dL (8.4-10.2); Carbon Dioxide 28 mmol/L (22-29); Chloride 101 mmol/L (96-108); Cholesterol 119 mg/dL (<200); Estimated Glomerular Filt Rate > 60; Glucose Fasting 142 mg/dL (60-99); HDL Cholesterol 33 mg/dL (>40); LDL Cholesterol Calculated 59 mg/dL (<100); Sodium 138 mmol/L (135-145); Total Protein 7.5 g/dL (6.5-8.0); Triglycerides 136 mg/dL (<150)
[2023-09-04 11:51] LABS: Creatinine Urine 102.56 mg/dL
[2023-09-04 12:29] LABS: Microalbum/Creatinine Ratio Ur 748.8 ug/mg cr (<30)
[2023-09-04 16:16] LABS: Estimated Average Glucose 163 mg/dL; Hemoglobin A1c % 7.3 % (<6.0)
== END 2023-09-04 06:21 | disposition home or self-care (01) ==
LOC: HO.HMGCLDS 06:20
PROVIDERS: PCP Internal Medicine; Visit Provider Internal Medicine
DX: E11.40 Type 2 diabetes mellitus with diabetic neuropathy, unspecified (principal); F32.9 Major depressive disorder, single episode, unspecified; I10 Essential (primary) hypertension; E55.9 Vitamin D deficiency, unspecified; E78.5 Hyperlipidemia, unspecified
CPT/HCPCS: 36415; 80053; 80061; 82043; 82306; 82570; 83036

== ENCOUNTER 2023-10-08 10:16 | Outpatient (AMB) | payer OTHER, SELFPAY ==
--- NOTE | 2023-10-08 10:50 | A.OFFPC_ITS ---
Vital Signs 10/08/23 10:51 10/08/23 11:16 Height 5 ft 5 in Weight 252 lb BMI 41.9 BP 152/80 H 130/80 Blood Pressure Location Rt brachial Position Sitting Pulse 69 Pulse Source Pulse Oximeter Pulse Oximetry (%) 95 Oxygen Delivery Method Room Air Intake Visit Reasons: 4 Month F/U Intake Note: Pt is here today for his 4 months f/u Allergies Seasonal Allergies Allergy (Mild, Verified 10/08/23 11:16) sneezing, runny nose Medication List - Last Reconciled 10/08/23 by Caitlyn Arreola MD atorvastatin 20 mg PO Q2D 90 days blood sugar diagnostic ([employer] Ultra Test strips) Test blood sugar 3 times per day cholecalciferol (vitamin D3) 50 mcg PO DAILY dulaglutide (Trulicity) 3 mg (0.5 mL) subcut QWEEK 30 days lancets test blood sugar 3 times per day lisinopril-hydrochlorothiazide 10-12.5 mg 1 tab PO DAILY metformin 500 mg PO BID metoprolol tartrate 25 mg PO BID 90 days venlafaxine ER 75 mg PO DAILY Tobacco use date assessed: 10/08/23 Fall risk assessment: No Falls in past year Last assessed Fall Risk: 10/08/23 Dental Screening Dental Screen Date: 10/08/23 Did you have a dental visit in the last 12 months?: Yes Did you have a dental problem in the last 6 months where you did not have access to dental care?: No Was dental information given to patient?: Patient has dentist HPI 4 Month F/U HPI Details 68-year-old male with hyperlipidemia, di abetes mellitus, with neuropathy, hypertension, here today for his follow-up. He has been taking his medications as directed, checking his blood sugar regularly with a.m. blood sugar readings always following below 130 but usually is higher at the end of the day going up to as high as 150 mg/dL. He admits to sometimes being indiscrete with his diet, and unable to exercise much due to neuropathy. Latest fasting labs showed hemoglobin A1c down%. Fasting lipids are within normal limits except for low good cholesterol and vitamin-D is low at 28 ng/mL. He states that he is up-to-date with his diabetes retinopathy screening, [facility]. He however does not see podiatry. Still complaining of intermittent episodes of numbness and tingling in the bottom of both feet. He has been diagnosed to have obstructive sleep apnea, several years ago some were at the clinic in [place], checked with [facility] record could not find anything there patient however states that he is needing masks and replacement supplies for his CPAP. [facility] Medical History Vitamin D deficiency Diabetic neuropathy associated with diabetes mellitus due to underlying condition Plantar callus Anemia Type 2 diabetes mellitus with other diabetic kidney complication Lumbago History of nephrolithiasis SYLVIA on CPAP Type 2 diabetes mellitus without complication, with no history of insulin use Morbid obesity Abdominal mass, RUQ (right upper quadrant) Surgical History H/O ventral hernia repair Family History Other No significant family history Social History Housing: Apartment Alcohol intake: never Patient Tobacco Use Status: Never used Tobacco e-Cigarette/Vaping Use: Never Used Current occupational status: disabled Cognitive needs: No Hearing needs: No Vision needs: No Questionnaire PHQ-9 Over the last 2 weeks, how often have you been bothered by any of the following problems? Depression Screening Interpretation: Negative Depression Screening Done: Yes Source: Developed by Drs. Asad Mon, Jalil Rodriguez and colleagues, with an educational billy from [employer] Thrive Questionnaire Date Thrive assessed: 05/29/23 AUDIT C Alcohol Use Questionnaire (AUDIT-C) 1. How often do you have a drink containing alcohol?: Never Total Score: 0 NINFA-7 AMB Questionnaire NINFA-7 Date NINFA - 7 assessed: 08/18/22 Source: Developed by Drs. Asad Mon, Jalil Rodriguez and colleagues, with an educational billy from [employer] Review of Systems Const Denies body aches, Denies fever(s), Denies headache(s), Denies weakness and Reports weight loss Eyes Details: Goes to [facility] at [address] [place] [address] [address] in [facility], no retinopathy, beginning glaucoma Denies change in vision ENT Denies dizziness, Denies headache(s), Denies nasal congestion, Denies nasal discharge and Denies sore throat Card Denies chest pain, Denies lightheadedness and Denies dyspnea Resp Denies chest congestion, Denies cough and Denies dyspnea GI Denies abdominal pain, Denies change in bowel habits and Denies heartburn Denies hematuria, Denies difficulty urinating, Denies dysuria and Denies urinary urgency Musc Reports no additional complaints Skin/Breast Denies lesions and Denies rash Neuro Denies dizziness, Denies headache(s) and Denies weakness Psych Reports no additional complaints Endo Reports no additional complaints Kevan/Lymph Denies easy bleeding and Denies easy bruising Aller/Immun Reports no additional complaints Physical exam (Primary Care) Vital Signs: Last Vital Signs Pulse 69 10/08/23 10:51 BP 130/80 10/08/23 11:16 Pulse Ox 95 10/08/23 10:51 Oxygen Delivery Method Room Air 10/08/23 10:51 BMI result Body Mass Index 41.9 Tobacco/Smoking Status: Tobacco use Status Tobacco use date assessed 10/08/23 10/08/23 10:56 Patient Tobacco Use Status Never used Tobacco 10/08/23 10:56 e-Cigarette/Vaping Use Never Used 10/08/23 10:56 Depression Screening Interpretation: Negative Thrive Assessment: Date of Thrive Assessment Date Thrive assessed 05/29/23 10/08/23 10:56 Const General: no acute distress and alert Nutritional Appearance: obese morbidly obese Orientation/consciousness: patient oriented x3 HENMT Ears: external ears normal General nose exam: Normal external nose present and No nasal discharge present Mouth: oropharynx normal and moist mucous membranes Eyes General: appearance normal, both eyes and all related structures Neck Neck: Yes full ROM, Yes no lymphadenopathy and Yes supple Resp Effort & Inspection: normal respiratory effort and able to speak in complete sentences Auscultation: clear to auscultation bilaterally Cardio Rate: regular rate Rhythm: regular rhythm Heart sounds: S1 normal heart sound present and S2 normal heart sound present Peripheral pulses: posterior tibial pulses present and dorsalis pedis present GI Palpation (GI): Soft to palpation, nontender and no masses Auscultation: normal bowel sounds General: Yes no CVA tenderness Back/Spine/Pelvis Back: no CVA tenderness and No back tenderness Neuro General: patient oriented x3, moves all extremities, no focal motor deficits and CN's II-XI intact bilaterally Extrem General: Yes full ROM, Yes no joint enlargement, Yes no pedal edema, Yes no calf tenderness and Yes normal gait Psych Appearance: grossly normal and well kempt Mental Status: mental status grossly normal Speech and movement: Normal speech and movement present Affect: normal affect Attitude: cooperative Thought process: Normal thought process present Thought content: Normal thought content present Results Reviewed Results Reviewed: Laboratory Tests 09/04/23 06:37 Estimat Average Glucose 163 Hemoglobin A1c % 7.3 H maylin: Waqar Sánchez Age/Sex: 68/M : 1955 Unit#: [id number] Attend Dr: Caitlyn Arreola MD Re09/04/23 Status: DEP REF Location: [facility] Disch: SPEC : [id number] [place]: 09/04/23 STATUS: COMP REQ : [id number] RECD: 09/04/23-[address]: Caitlyn Arreola MD COMP: 09/04/237 ENTERED: 09/04/[address]: ORDERED: CMP Fast, Lipid Panel, Vitamin D 25-OH Test Result Flag Reference Sodium 138 135-145 mmol/L Potassium 4.0 3.3-5.1 mmol/L CL 101 96-108 mmol/L CO2 28 22-29 mmol/L Gap 13 12-20 BUN 22 H 9-16 mg/dL Creat 0.81 0.5-1.4 mg/dL EGFR > 60 NOTE: For -Russian individuals, multiply the result by 1.210. Chronic Kidney Disease: Estimated GFR < 60 mL/min/1.73m2 Severe Kidney Disease: Estimated GFR < 15 mL/min/1.73m2 FBS 142 H 60-99 mg/dL A fasting glucose of 126 mg/dl or greater on more than one occasion is considered diagnostic of diabetes. CA 9.7 8.4-10.2 mg/dL Total Bili 0.4 0.0-1.0 mg/dL AST (GOT) 17 5-37 U/L ALT (GPT) 29 0-40 U/L Protein, Total 7.5 6.5-8.0 g/dL Alb 4.0 3.5-5.0 g/dL Triglyceride 136 <150 mg/dL Desirable Triglyceride: less than 150 mg/dL Borderline High Triglyceride 150-199 mg/dL High Triglyceride: 200-499 mg/dL Very High Triglyceride: greater than or equal to 5OO mg/dL Cholesterol 119 <200 mg/dL Desirable Cholesterol: less than 200 mg/dL Borderline High Cholesterol: 200-239 mg/dL High Cholesterol: greater than 239 mg/dL LDL Calculated 59 <100 mg/dL Desirable LDL: less than 100 mg/dL Near Optimal/Above Optimal LDL: 110-129 mg/dL Borderline High LDL: 130-159 mg/dL High LDL: 160-189 mg/dL Very High LDL: greater than or equal to 190 mg/dL HDL 33 L >40 mg/dL Desirable HDL: greater than 40 mg/dL Note: This HDL assay may give artificially low results in patients with liver disease. Alk Phos 63 39-117 U/L Vit D 25-OH Tot 28.0 L >30 ng/mL Health Based Reference Values* < 20 ng/mL Deficient 20-30 ng/mL Insufficient > 30 ng/mL Sufficient Assessment and Plan Assessment & Plan (1) Vitamin D deficiency: Code(s): E55.9 - Vitamin D deficiency, unspecified Plan: Prescription sent for vitamin-D3 at 2000 units per capsule to take once a day (2) SYLVIA on CPAP: Code(s): G47.33 - Obstructive sleep apnea (adult) (pediatric); Z99.89 - Dependence on other enabling machines and devices Plan: Referred to [facility] for re-evaluation regarding sleep apnea, needs his CPAP supplies but they are over 3 years old (3) Morbid obesity: Code(s): E66.01 - Morbid (severe) obesity due to excess calories Plan: Discussed need to increase activity and lose more weight Recommended focusing on improving your health instead of dieting. : Eat Mediterranean diet, limit foods high in fat, sugar, and calories, eat slowly, pay attention to portion sizes, plan your meals ahead of time, start regular physical activity 150 minutes of moderate intensity exercise or 90 minutes/week of vigorous exercise and increase water intake. (4) Hyperlipidemia: Code(s): E78.5 - Hyperlipidemia, unspecified Qualifiers: Hyperlipidemia type: pure hypercholesterolemia Qualified Code(s): E78.00 - Pure hypercholesterolemia, unspecified Plan: Reviewed recent fasting lipid profile with patient with levels within normal limits except for low good cholesterol . Continue with atorvastatin 20 mg every other day , in addition to adherence to low-cholesterol diet and regular exercise, at least 30 minutes 3 to 4 times a week. Advised patient to make healthy food choices, eat more fruits, vegetables, whole grains, wild caught fish and low-fat dairy. Limit amount of meat and fried or fatty food products, as well as processed foods and fast foods. Follow-up scheduled with repeat fasting lipid panel in 3 months. (5) Hypertension: Code(s): I10 - Essential (primary) hypertension Qualifiers: Hypertension type: primary hypertension Qualified Code(s): I10 - Essential (primary) hypertension Plan: Blood pressure at goal of less than 130/80. Continue metoprolol tartrate 25 mg twice a day in addition to lisinopril-HCTZ 10-12.5 mg 1 tablet daily in a.m.. Reinforced importance of following a low sodium diet, getting regular exercise, and lowering stress levels. (6) Diabetic neuropathy associated with diabetes mellitus due to underlying condition: Code(s): E08.40 - Diabetes mellitus due to underlying condition with diabetic neuropathy, unspecified Plan: Reinforced importance of getting diabete mellitus well controlled. Referred to Podiatry (7) Type 2 diabetes mellitus with other diabetic kidney complication: Code(s): E11.29 - Type 2 diabetes mellitus with other diabetic kidney complication Plan: Reinforced importance of following a healthy diet and compliant , weight loss and compliance with medications.. Continue Trulicity 3 mg once a week subcutaneously injected, continue metformin but increase dose to a 1000 mg in the morning with breakfast and 500 mg at night. (8) Depression: Code(s): F32.9 - Major depressive disorder, single episode, unspecified Qualifiers: Active/Remission status: in full remission Depression Type: major depressive disorder Major depression recurrence: recurrent Qualified Code(s): F33.42 - Major depressive disorder, recurrent, in full remission Plan: Continue venlafaxine ER 75 mg daily Orders: Orders Hemoglobin A1c 01/07/24 E08.40 - Diabetes mellitus due to underlying condition with diabetic neuropathy, unspecified, E11.29 - Type 2 diabetes mellitus with other diabetic kidney complication, E55.9 - Vitamin D deficiency, unspecified, E66.01 - Morbid (severe) obesity due to excess calories, E78.5 - Hyperlipidemia, unspecified, F32.9 - Major depressive disorder, single episode, unspecified, G47.33 - Obstructive sleep apnea (adult) (pediatric), I10 - Essential (primary) hypertension, Z99.89 - Dependence on other enabling machines and devices Basic Metabolic Panel Fasting 01/07/24 E08.40 - Diabetes mellitus due to underlying condition with diabetic neuropathy, unspecified, E11.29 - Type 2 diabetes mellitus with other diabetic kidney complication, E55.9 - Vitamin D deficiency, unspecified, E66.01 - Morbid (severe) obesity due to excess calories, E78.5 - Hyperlipidemia, unspecified, F32.9 - Major depressive disorder, single episode, unspecified, G47.33 - Obstructive sleep apnea (adult) (pediatric), I10 - Essential (primary) hypertension, Z99.89 - Dependence on other enabling machines and devices Aspartate Amino Transferase 01/07/24 E08.40 - Diabetes mellitus due to underlying condition with diabetic neuropathy, unspecified, E11.29 - Type 2 diabetes mellitus with other diabetic kidney complication, E55.9 - Vitamin D deficiency, unspecified, E66.01 - Morbid (severe) obesity due to excess calories, E78.5 - Hyperlipidemia, unspecified, F32.9 - Major depressive disorder, single episode, unspecified, G47.33 - Obstructive sleep apnea (adult) (pediatric), I10 - Essential (primary) hypertension, Z99.89 - Dependence on other enabling machines and devices Alanine Aminotransferase 01/07/24 E08.40 - Diabetes mellitus due to underlying condition with diabetic neuropathy, unspecified, E11.29 - Type 2 diabetes mellitus with other diabetic kidney complication, E55.9 - Vitamin D deficiency, unspecified, E66.01 - Morbid (severe) obesity due to excess calories, E78.5 - Hyperlipidemia, unspecified, F32.9 - Major depressive disorder, single episode, unspecified, G47.33 - Obstructive sleep apnea (adult) (pediatric), I10 - Essential (primary) hypertension, Z99.89 - Dependence on other enabling machines and devices Microalbumin, Random (w Creat) 01/07/24 E08.40 - Diabetes mellitus due to underlying condition with diabetic neuropathy, unspecified, E11.29 - Type 2 diabetes mellitus with other diabetic kidney complication, E55.9 - Vitamin D deficiency, unspecified, E66.01 - Morbid (severe) obesity due to excess c alories, E78.5 - Hyperlipidemia, unspecified, F32.9 - Major depressive disorder, single episode, unspecified, G47.33 - Obstructive sleep apnea (adult) (pediatric), I10 - Essential (primary) hypertension, Z99.89 - Dependence on other enabling machines and devices Lipid Panel 01/07/24 E08.40 - Diabetes mellitus due to underlying condition with diabetic neuropathy, unspecified, E11.29 - Type 2 diabetes mellitus with other diabetic kidney complication, E55.9 - Vitamin D deficiency, unspecified, E66.01 - Morbid (severe) obesity due to excess calories, E78.5 - Hyperlipidemia, unspecified, F32.9 - Major depressive disorder, single episode, unspecified, G47.33 - Obstructive sleep apnea (adult) (pediatric), I10 - Essential (primary) hypertension, Z99.89 - Dependence on other enabling machines and devices Vitamin D 25-OH Total 01/07/24 E08.40 - Diabetes mellitus due to underlying condition with diabetic neuropathy, unspecified, E11.29 - Type 2 diabetes mellitus with other diabetic kidney complication, E55.9 - Vitamin D deficiency, unspecified, E66.01 - Morbid (severe) obesity due to excess calories, E78.5 - Hyperlipidemia, unspecified, F32.9 - Major depressive disorder, single episode, unspecified, G47.33 - Obstructive sleep apnea (adult) (pediatric), I10 - Essential (primary) hypertension, Z99.89 - Dependence on other enabling machines and devices Referrals Podiatry Referral E08.40 - Diabetes mellitus due to underlying condition with diabetic neuropathy, unspecified Sleep Medicine Referral G47.33 - Obstructive sleep apnea (adult) (pediatric), Z99.89 - Dependence on other enabling machines and devices Medications: New cholecalciferol (vitamin D3) 50 mcg PO DAILY 90 caps 4RF E11.29 - Type 2 diabetes mellitus with other diabetic kidney complication, E55.9 - Vitamin D deficiency, unspecified Changed From metformin 1,000 mg PO BID 3 months 180 tabs 3RF E11.9 - Type 2 diabetes mellitus without complications To metformin 500 mg PO BID E11.9 - Type 2 diabetes mellitus without complications Coding Level of Care Code Est Pt Level 4 (30417) Diagnoses Vitamin D deficiency E55.9 SYLVIA on CPAP G47.33; Z99.89 Morbid obesity E66.01 Pure hypercholesterolemia E78.00 Hyperlipidemia type: pure hypercholesterolemia Primary hypertension I10 Hypertension type: primary hypertension Diabetic neuropathy associated with diabetes mellitus due to underlying condition E08.40 Type 2 diabetes mellitus with other diabetic kidney complication E11.29 Recurrent major depressive disorder, in full remission F33.42 Active/Remission status: in full remission Depression Type: major depressive disorder Major depression recurrence: recurrent
[2023-10-08 10:51] VITALS: BP 152/80; PULSE 69; O2SAT 95; BMI 41.9
[2023-10-08 11:16] VITALS: BP 130/80
== END 2023-10-08 11:37 | disposition home or self-care (01) ==
PROVIDERS: PCP Internal Medicine; Visit Provider Internal Medicine
DX: E11.29 Type 2 diabetes mellitus with other diabetic kidney complication (principal); E66.01 Morbid (severe) obesity due to excess calories; F33.42 Major depressive disorder, recurrent, in full remission; Z68.41 Body mass index [BMI] 40.0-44.9, adult; G47.33 Obstructive sleep apnea (adult) (pediatric); E55.9 Vitamin D deficiency, unspecified; Z99.89 Dependence on other enabling machines and devices; E78.00 Pure hypercholesterolemia, unspecified; I10 Essential (primary) hypertension
CPT/HCPCS: 99214

== ENCOUNTER 2024-01-11 08:39 | Outpatient (REF) | payer OTHER, SELFPAY ==
[2024-01-11 10:41] LABS: Estimated Average Glucose 163 mg/dL; Hemoglobin A1c % 7.3 % (<6.0)
[2024-01-11 10:50] LABS: Alanine Aminotransferase 27 U/L (0-40); Anion Gap 15 (12-20); Aspartate Amino Transferase 15 U/L (5-37); Blood Urea Nitrogen 22 mg/dL (9-16); Calcium 9.9 mg/dL (8.4-10.2); Carbon Dioxide 30 mmol/L (22-29); Chloride 102 mmol/L (96-108); Cholesterol 126 mg/dL (<200); Estimated Glomerular Filt Rate > 60; Glucose Fasting 166 mg/dL (60-99); HDL Cholesterol 34 mg/dL (>40); LDL Cholesterol Calculated 68 mg/dL (<100); Potassium 4.6 mmol/L (3.3-5.1); Sodium 142 mmol/L (135-145); Triglycerides 123 mg/dL (<150)
[2024-01-11 11:07] LABS: Vitamin D 25-OH Total 36.9 ng/mL (>30)
[2024-01-11 11:34] LABS: Microalbum/Creatinine Ratio Ur 927.9 ug/mg cr (<30)
== END 2024-01-11 08:40 | disposition home or self-care (01) ==
LOC: HO.HMGCLDS 08:39
PROVIDERS: PCP Internal Medicine; Visit Provider Internal Medicine
DX: E55.9 Vitamin D deficiency, unspecified (principal); E11.40 Type 2 diabetes mellitus with diabetic neuropathy, unspecified; E11.29 Type 2 diabetes mellitus with other diabetic kidney complication; G47.33 Obstructive sleep apnea (adult) (pediatric); E66.01 Morbid (severe) obesity due to excess calories; F32.9 Major depressive disorder, single episode, unspecified; E78.5 Hyperlipidemia, unspecified; I10 Essential (primary) hypertension; Z99.89 Dependence on other enabling machines and devices
CPT/HCPCS: 36415; 80048; 80061; 82043; 82306; 82570; 83036; 84450; 84460

== ENCOUNTER 2024-01-14 08:37 | Outpatient (AMB) | payer OTHER, SELFPAY ==
[2024-01-14 08:43] VITALS: BP 152/84; PULSE 75; O2SAT 94; BMI 42.3
--- NOTE | 2024-01-14 08:43 | MHC.PC.OV ---
Vital Signs 01/14/24 08:43 Height 5 ft 5 in Weight 254 lb BMI 42.3 BP 152/84 H Blood Pressure Location Rt brachial Position Sitting Pulse 75 Pulse Source Pulse Oximeter Pulse Oximetry (%) 94 Oxygen Delivery Method Room Air Intake Visit Reasons: f/u DM Intake Note: Pt is here today for his DM f/u labs Allergies Seasonal Allergies Allergy (Mild, Verified 01/21/24 02:26) sneezing, runny nose Medication List - Last Reconciled 01/14/24 by Caitlyn Arreola MD atorvastatin 20 mg PO Q2D 90 days blood sugar diagnostic ([employer] Ultra Test strips) Test blood sugar 3 times per day dulaglutide (Trulicity) 3 mg (0.5 mL) subcut QWEEK 30 days lancets test blood sugar 3 times per day lisinopril-hydrochlorothiazide 10-12.5 mg 1 tab PO DAILY metformin 500 mg PO BID metoprolol tartrate 25 mg PO BID 90 days venlafaxine ER 75 mg PO DAILY Tobacco use date assessed: 01/14/24 Fall risk assessment: No Falls in past year Last assessed Fall Risk: 01/14/24 Dental Screening Dental Screen Date: 01/14/24 Did you have a dental visit in the last 12 months?: Yes Did you have a dental problem in the last 6 months where you did not have access to dental care?: No Was dental information given to patient?: Patient has dentist HPI f/u DM HPI Details 68 year-old male with hyperlipidemia, diabetes mellitus, with neuropathy, hypertension, here today for his follow-up. He has been taking his medications as directed,, not much exercise done however, and has not really been strictly following recommended diet. Hemoglobin A1c is still remains unchanged from previous at 7.3%, but his fasting lipids and vitamin-D level are within normal limits except for low good cholesterol level. [facility] Medical History (Updated 01/21/24 @ 02:29 by Caitlyn Arreola MD) Diabetic neuropathy associated with diabetes mellitus due to underlying condition Plantar callus Anemia Type 2 diabetes mellitus with other diabetic kidney complication Lumbago History of nephrolithiasis SYLVIA on CPAP Type 2 diabetes mellitus without complication, with no history of insulin use Morbid obesity Abdominal mass, RUQ (right upper quadrant) Surgical History H/O ventral hernia repair Family History Other No significant family history Social History Housing: Apartment Alcohol intake: never Patient Tobacco Use Status: Never used Tobacco e-Cigarette/Vaping Use: Never Used Current occupational status: disabled Cognitive needs: No Hearing needs: No Vision needs: No Questionnaire PHQ-9 Over the last 2 weeks, how often have you been bothered by any of the following problems? 1. Little interest or pleasure in doing things: not at all 2. Feeling down, depressed, or hopeless: not at all 3. Trouble falling or staying asleep, or sleeping too much: not at all 4. Feeling tired or having little energy: not at all 5. Poor appetite or overeating: not at all 6. Feeling bad about yourself - or that you are a failure or have let yourself or your family down: not at all 7. Trouble concentrating on things, such as reading the newspaper or watching television: not at all 8. Moving or speaking so slowly that other people could have noticed. Or the opposite - being so fidgety or restless that you have been moving around a lot more than usual: not at all 9. Thoughts that you would be better off or of hurting yourself in some way: not at all Total score: 0 Depression Screening Interpretation: Negative Depression Screening Done: Yes 37223 - PHQ-9 Billing: Yes Source: Developed by Drs. Asad Mon, Siobhan Carrillo, Jalil Grijalva and colleagues, with an educational billy from [employer]. Thrive Questionnaire Date Thrive assessed: 01/14/24 I am a: Patient What is your living situation today?: I have a steady place to live Within the past 12 months, did the food you bought not last and you didn't have the money to get more?: Never true Within the past 12 months, did you worry whether your food would run out before you got money to buy more?: Never true Do you have trouble paying for medicines?: No Do you have trouble getting transportation to medical appointments?: No Do you have trouble paying your heating and electricity bill?: No Do you have trouble taking care of your child, family member or friend?: No Do you have trouble with day-to-day activities such as bathing, preparing meals, shopping, managing finances, etc.?: No Are you currently unemployed and looking for a job?: No Are you interested in more education?: No THRIVE Score: 0 AUDIT C Alcohol Use Questionnaire (AUDIT-C) 1. How often do you have a drink containing alcohol?: Never Total Score: 0 NINFA-7 AMB Questionnaire NINFA-7 Date NINFA - 7 assessed: 01/14/24 Feeling nervous, anxious, or on edge: 0 = Not at all Not being able to stop or control worryin = Not at all Worrying too much about different things: 0 = Not at all Trouble relaxin = Not at all Being so restless that it is hard to sit still: 0 = Not at all Becoming easily annoyed or irritable: 0 = Not at all Feeling afraid as if something awful might happen: 0 = Not at all Total NINFA-7 score (0-4 normal; 5-9 mild; 10-14 moderate; 15-21 severe): 0 Source: Developed by Drs. Asad Mon, Siobhan Carrillo, Jalil Grijalva and colleagues, with an educational billy from [employer]. NINFA-7 Assessment Billing NINFA-7 Assessment Tool: NINFA-7 Assessment 03348 Review of Systems Const Denies body aches, Denies fever(s), Denies headache(s) and Denies weakness Eyes Details: Goes to [facility] and surgery associates at [address] [place] [address] [address] in [facility], no retinopathy, beginning glaucoma Denies change in vision ENT Denies dizziness, Denies headache(s), Denies nasal congestion, Denies nasal discharge and Denies sore throat Card Denies chest pain, Denies lightheadedness and Denies dyspnea Resp Denies chest congestion, Denies cough and Denies dyspnea GI Denies abdominal pain, Denies change in bowel habits and Denies heartburn Denies hematuria, Denies difficulty urinating and Denies dysuria Musc Details: Patient states he has an appointment with Podiatry January 22 2024 Reports no additional complaints Skin/Breast Denies lesions and Denies rash Neuro Denies dizziness, Denies headache(s) and Denies weakness Psych Reports no additional complaints Endo Reports no additional complaints Kevan/Lymph Denies easy bleeding and Denies easy bruising Aller/Immun Reports no additional complaints Physical exam (Primary Care) Vital Signs: Last Vital Signs Pulse 75 01/14/24 08:43 BP 152/84 H 01/14/24 08:43 Pulse Ox 94 01/14/24 08:43 Oxygen Delivery Method Room Air 01/14/24 08:43 BMI result Body Mass Index 42.3 Tobacco/Smoking Status: Tobacco use Status Tobacco use date assessed 01/14/24 01/14/24 08:45 Patient Tobacco Use Status Never used Tobacco 01/14/24 08:45 e-Cigarette/Vaping Use Never Used 01/14/24 08:45 PHQ-9: PHQ-9 Score PHQ-9: Total score 0 01/14/24 09:28 Depression Screening Interpretation: Negative Thrive Assessment: Date of Thrive Assessment Date Thrive assessed 01/14/24 01/14/24 08:49 Const General: no acute distress and alert Nutritional Appearance: obese morbidly obese Orientation/consciousness: patient oriented x3 HENMT Ears: external ears normal General nose exam: Normal external nose present and No nasal discharge present Mouth: oropharynx normal and moist mucous membranes Eyes General: appearance normal, both eyes and all related structures Neck Neck: Yes full ROM, Yes no lymphadenopathy and Yes supple Resp Effort & Inspection: normal respiratory effort and able to speak in complete sentences Auscultation: clear to auscultation bilaterally Cardio Rate: regular rate Rhythm: regular rhythm Heart sounds: S1 normal heart sound present and S2 normal heart sound present Peripheral pulses: posterior tibial pulses present and dorsalis pedis present GI Palpation (GI): Soft to palpation, nontender and no masses Auscultation: normal bowel sounds General: Yes no CVA tenderness Back/Spine/Pelvis Back: no CVA tenderness and No back tenderness Skin General skin exam: no rashes or lesions noted Neuro General: patient oriented x3, moves all extremities, no focal motor deficits and CN's II-XI intact bilaterally Extrem General: Yes full ROM, Yes no joint enlargement, Yes no pedal edema, Yes no calf tenderness and Yes normal gait Psych Appearance: grossly normal and well kempt Mental Status: mental status grossly normal Speech and movement: Normal speech and movement present Affect: normal affect Attitude: cooperative Thought process: Normal thought process present Thought content: Normal thought content present Results Reviewed Results Reviewed: Laboratory Tests 01/11/24 08:46 Estimat Average Glucose 163 Hemoglobin A1c % 7.3 H Name: Waqar Sánchez Age/Sex: 68/M : 1955 Unit#: [id number] Attend Dr: Caitlyn Arreola MD Re01/11/24 Status: [facility]P [facility] SPEC : [id number] [place]: 01/11/24 STATUS: COMP REQ : [id number] RECD: 01/11/24-[address]: Caitlyn Arreola MD COMP: 01/11/24 ENTERED: 01/11/[address]: ORDERED: Met Prof Fast, AST, ALT, Lipid Panel, Vitamin D 25-OH Test Result Flag Reference Sodium 142 135-145 mmol/L Potassium 4.6 3.3-5.1 mmol/L CL 102 96-108 mmol/L CO2 30 H 22-29 mmol/L Gap 15 12-20 BUN 22 H 9-16 mg/dL Creat 0.88 0.5-1.4 mg/dL EGFR > 60 NOTE: For -Lebanese individuals, multiply the result by 1.210. Chronic Kidney Disease: Estimated GFR < 60 mL/min/1.73m2 Severe Kidney Disease: Estimated GFR < 15 mL/min/1.73m2 FBS 166 H 60-99 mg/dL A fasting glucose of 126 mg/dl or greater on more than one occasion is considered diagnostic of diabetes. CA 9.9 8.4-10.2 mg/dL AST (GOT) 15 5-37 U/L ALT (GPT) 27 0-40 U/L Triglyceride 123 <150 mg/dL Desirable Triglyceride: less than 150 mg/dL Borderline High Triglyceride 150-199 mg/dL High Triglyceride: 200-499 mg/dL Very High Triglyceride: greater than or equal to 5OO mg/dL Cholesterol 126 <200 mg/dL Desirable Cholesterol: less than 200 mg/dL Borderline High Cholesterol: 200-239 mg/dL High Cholesterol: greater than 239 mg/dL LDL Calculated 68 <100 mg/dL Desirable LDL: less than 100 mg/dL Near Optimal/Above Optimal LDL: 110-129 mg/dL Borderline High LDL: 130-159 mg/dL High LDL: 160-189 mg/dL Very High LDL: greater than or equal to 190 mg/dL HDL 34 L >40 mg/dL Desirable HDL: greater than 40 mg/dL Note: This HDL assay may give artificially low results in patients with liver disease. Vit D 25-OH Tot 36.9 >30 ng/mL Health Based Reference Values* < 20 ng/mL Deficient 20-30 ng/mL Insufficient > 30 ng/mL Sufficient Assessment and Plan Assessment & Plan (1) Hypertension: Code(s): I10 - Essential (primary) hypertension Qualifiers: Hypertension type: primary hypertension Qualified Code(s): I10 - Essential (primary) hypertension Plan: Blood pressure not at goal of less than 130/80. Changed lisinopril-HCTZ dose 20-12.5 mg tablet taken once a day in a.m. Reinforced importance of following a low sodium diet, getting regular exercise, and lowering stress levels. (2) Hyperlipidemia: Code(s): E78.5 - Hyperlipidemia, unspecified Qualifiers: Hyperlipidemia type: pure hypercholesterolemia Qualified Code(s): E78.00 - Pure hypercholesterolemia, unspecified Plan: Reviewed recent fasting lipid profile with patient with levels at goal except for low good cholesterol . Continue atorvastatin 20 mg 1 tablet every day , in addition to adherence to low-cholesterol diet and regular exercise, at least 30 minutes 3 to 4 times a week. Advised patient to make healthy food choices, eat more fruits, vegetables, whole grains, wild caught fish and low-fat dairy. Limit amount of meat and fried or fatty food products, as well as processed foods and fast foods. Follow-up scheduled with repeat fasting lipid panel in 3 months. (3) Type 2 diabetes mellitus with other diabetic kidney complication: Code(s): E11.29 - Type 2 diabetes mellitus with other diabetic kidney complication Plan: Hemoglobin A1c still not at goal of less than 7%. Stressed importance of following recommended diet and getting at least 30 minutes of exercise 3 to 4 times a week. Continued on Trulicity 3 mg subcutaneously given once a week, and metformin 500 mg to take 1 tablet twice a day. Will see him back for follow-up in 3 Orders: Orders Hemoglobin A1c 04/08/24 E08.40 - Diabetes mellitus due to underlying condition with diabetic neuropathy, unspecified, E11.29 - Type 2 diabetes mellitus with other diabetic kidney complication, E55.9 - Vitamin D deficiency, unspecified, E66.01 - Morbid (severe) obesity due to excess calories, E78.00 - Pure hypercholesterolemia, unspecified, I10 - Essential (primary) hypertension, N39.498 - Other specified urinary incontinence Vitamin D 25-OH Total 04/08/24 E08.40 - Diabetes mellitus due to underlying condition with diabetic neuropathy, unspecified, E11.29 - Type 2 diabetes mellitus with other diabetic kidney complication, E55.9 - Vitamin D deficiency, unspecified, E66.01 - Morbid (severe) obesity due to excess calories, E78.00 - Pure hypercholesterolemia, unspecified, I10 - Essential (primary) hypertension, N39.498 - Other specified urinary incontinence Lipid Panel 04/08/24 E08.40 - Diabetes mellitus due to underlying condition with diabetic neuropathy, unspecified, E11.29 - Type 2 diabetes mellitus with other diabetic kidney complication, E55.9 - Vitamin D deficiency, unspecified, E66.01 - Morbid (severe) obesity due to excess calories, E78.00 - Pure hypercholesterolemia, unspecified, I10 - Essential (primary) hypertension, N39.498 - Other specified urinary incontinence PSA,Total (Free>4and<10) 04/08/24 E08.40 - Diabetes mellitus due to underlying condition with diabetic neuropathy, unspecified, E11.29 - Type 2 diabetes mellitus with other diabetic kidney complication, E55.9 - Vitamin D deficiency, unspecified, E66.01 - Morbid (severe) obesity due to excess calories, E78.00 - Pure hypercholesterolemia, unspecified, I10 - Essential (primary) hypertension, N39.498 - Other specified urinary incontinence Comprehensive [place]. Panel Fast 04/08/24 E08.40 - Diabetes mellitus due to underlying condition with diabetic neuropathy, unspecified, E11.29 - Type 2 diabetes mellitus with other diabetic kidney complication, E55.9 - Vitamin D deficiency, unspecified, E66.01 - Morbid (severe) obesity due to excess calories, E78.00 - Pure hypercholesterolemia, unspecified, I10 - Essential (primary) hypertension, N39.498 - Other specified urinary incontinence Medications: New lisinopril-hydrochlorothiazide 20-12.5 mg 1 tab PO DAILY 90 tabs 1RF I10 - Essential (primary) hypertension Discontinued lisinopril-hydrochlorothiazide 10-12.5 mg Discontinued Reason: Doctor's Order 1 tab PO DAILY 90 tabs 3RF Coding Level of Care Code Est Pt Level 4 (54645) Complex EM visit Add On G2211 Diagnoses Primary hypertension I10 Hypertension type: primary hypertension Pure hypercholesterolemia E78.00 Hyperlipidemia type: pure hypercholesterolemia Type 2 diabetes mellitus with other diabetic kidney complication E11.29 Additional Codes NINFA-7 Assessment Billing - NINFA-7 Assessment Tool: NINFA-7 Assessment 43597 ([id number])
== END 2024-01-14 09:46 | disposition home or self-care (01) ==
PROVIDERS: PCP Internal Medicine; Visit Provider Internal Medicine
DX: I10 Essential (primary) hypertension (principal); E78.00 Pure hypercholesterolemia, unspecified; E11.29 Type 2 diabetes mellitus with other diabetic kidney complication
CPT/HCPCS: 99214; G2211

== ENCOUNTER 2024-03-14 14:11 | Outpatient (AMB) | payer OTHER, SELFPAY ==
[2024-03-14 14:17] VITALS: PULSE 78; O2SAT 98; BMI 41.9
--- NOTE | 2024-03-14 14:17 | MHC.OFFVIS ---
Vital Signs 03/14/24 14:17 Height 5 ft 5 in Weight 252 lb BMI 41.9 Pulse 78 Pulse Source Pulse Oximeter Pulse Oximetry (%) 98 Oxygen Delivery Method Room Air Intake Visit Reasons: INP-Obstructive sleep apnea Intake Note: patient has cpap machine he needs to be established so that he can get supplies. Allergies Seasonal Allergies Allergy (Mild, Verified 03/14/24 14:20) sneezing, runny nose HPI Comments Details: 68-yr-old male presents for new in-person patient visit to [facility] w/ sleep medicine, as he is need of new PAP supplies. Patient reports he was diagnosed w/ severe obstructive sleep apnea at least 15 yrs ago. He was initially started on CPAP, and eventually switched to BiPAP in ~2016. Pt states he sleeps well w/ BiPAP. He cannot sleep w/o using his BiPAP. He denies daytime sleepiness when he uses his machine. He denies leg cramps or bothersome leg movements. Prior to starting PAP tx, he would have snoring, daytime tiredness. He states he has run out of his PAP supplies. He has not had a respiratory company in some time. Per review of Denise notes, previous sleep studies: [facility] Split Night Polysomnogram Date 10/13/2009 . SE 78 % SM 94 %. Without PAP: in REM for 9 % of this phase. RDI 70 (AHI 62), REM (RDI 65 - AHI 65), Central apneas 0; Obstructive apneas 67; Mixed apneas 4; hypopneas 139; RERAs 30; average oxygen saturation 93% (lowest 67%); PLMs 1. With PAP: in REM for 24 % of this phase. At the optimal pressure of 12 via CPAP; RDI 0 (AHI 0), Central apneas 0; Obstructive apneas 0; Mixed apneas 0; hypopneas 0; RERAs 0; and, average oxygen saturation was 94%; PLMs ~0. ? [facility] Polysomnogram treatment study. Date 05/03/2017 . SE 55 % SM 63 %; spent 4 % of the study in REM. At the optimal pressure of BiPAP 25/20; RDI 0 (AHI 0), Central apneas 0; Obstructive apneas 0; Mixed apneas 0; hypopneas 0; RERAs 0; and, average oxygen saturation was 94%. For the entire study, PLMs ~26. PFSH Medical History Diabetic neuropathy associated with diabetes mellitus due to underlying condition Plantar callus Anemia Type 2 diabetes mellitus with other diabetic kidney complication Lumbago History of nephrolithiasis SYLVIA on CPAP Type 2 diabetes mellitus without complication, with no history of insulin use Morbid obesity Abdominal mass, RUQ (right upper quadrant) Surgical History H/O ventral hernia repair Family History Other No significant family history Social History Housing: Apartment Alcohol intake: never Patient Tobacco Use Status: Never used Tobacco e-Cigarette/Vaping Use: Never Used Current occupational status: disabled Cognitive needs: No Hearing needs: No Vision needs: No Physical Exam Vital Signs: Last Vital Signs Pulse 78 03/14/24 14:17 Pulse Ox 98 03/14/24 14:17 Oxygen Delivery Method Room Air 03/14/24 14:17 BMI result Body Mass Index 41.9 Const General: no acute distress Orientation/consciousness: patient oriented x3 HEENT Other: Mallampati stage IV Resp Effort & Inspection: normal respiratory effort and able to speak in complete sentences Neuro Other: Slow to stand, mild antalgic gait- pt states he forgot his w/c/walker. General: patient oriented x3 Psych Mental Status: mental status grossly normal Speech and movement: Clear speech present Attitude: cooperative Assessment & Plan Assessment & Plan (1) Severe obstructive sleep apnea: Code(s): G47.33 - Obstructive sleep apnea (adult) (pediatric) Category: Medical Plan Continue BiPAP 25/20 cmH2O, as pt has had good clinical effect from use. Pt declines undergoing f/u sleep study at this time- states is tolerating his current PAP tx settings well. BipAP order written. Will request new mask fitting and BiPAP supplies. Will connect pt to new respiratory company Pt to call with any worsening concerns or questions. Pt to follow-up in 6 months or sooner prn. Case discussed w/ Dr Juana Roman. Coding Level of Care Code New Pt Level 3 (25284) Diagnoses Severe obstructive sleep apnea G47.33
== END 2024-03-14 15:03 | disposition home or self-care (01) ==
PROVIDERS: PCP Internal Medicine; Visit Provider Nurse Practitioner Family
DX: G47.33 Obstructive sleep apnea (adult) (pediatric) (principal)
CPT/HCPCS: 99203

== ENCOUNTER → 2024-03-14 14:11 | Outpatient (BNVA) | payer OTHER, SELFPAY | PROVIDERS: PCP Internal Medicine; Visit Provider Nurse Practitioner Family | DX: G47.33 Obstructive sleep apnea (adult) (pediatric) (principal); Z99.89 Dependence on other enabling machines and devices | CPT/HCPCS: 99202 ==

== ENCOUNTER 2024-04-22 06:01 | Outpatient (REF) | payer OTHER, SELFPAY ==
[2024-04-22 10:19] LABS: Estimated Average Glucose 160 mg/dL; Hemoglobin A1C 213.9916 umol/L; Hemoglobin A1c % 7.2 % (<6.0); Total Hemoglobin (HGBA1C) 3860.2552 umol/L
[2024-04-22 10:34] LABS: Alanine Aminotransferase 24 U/L (0-40); Albumin Level 4.3 g/dL (3.5-5.0); Alkaline Phosphatase 69 U/L (39-117); Anion Gap 12 (12-20); Aspartate Amino Transferase 19 U/L (5-37); Bilirubin Total 0.6 mg/dL (0.0-1.0); Blood Urea Nitrogen 20 mg/dL (9-16); Calcium 10.1 mg/dL (8.4-10.2); Carbon Dioxide 32 mmol/L (22-29); Chloride 101 mmol/L (96-108); Cholesterol 136 mg/dL (<200); Estimated Glomerular Filt Rate > 60; Glucose Fasting 155 mg/dL (60-99); HDL Cholesterol 30 mg/dL (>40); LDL Cholesterol Calculated 75 mg/dL (<100); Potassium 4.5 mmol/L (3.3-5.1); Sodium 140 mmol/L (135-145); Total Protein 7.4 g/dL (6.5-8.0); Triglycerides 159 mg/dL (<150)
[2024-04-22 10:38] LABS: Vitamin D 25-OH Total 46.4 ng/mL (>30)
[2024-04-22 10:48] LABS: PSA,Total (Free>4and<10) 0.49 ng/mL (0.00-4.00)
== END 2024-04-22 06:02 | disposition home or self-care (01) ==
LOC: HO.HMGCLDS 06:01
PROVIDERS: PCP Internal Medicine; Visit Provider Internal Medicine
DX: E55.9 Vitamin D deficiency, unspecified (principal); E11.29 Type 2 diabetes mellitus with other diabetic kidney complication; E66.01 Morbid (severe) obesity due to excess calories; E78.00 Pure hypercholesterolemia, unspecified; I10 Essential (primary) hypertension; N39.498 Other specified urinary incontinence; Z12.5 Encounter for screening for malignant neoplasm of prostate
CPT/HCPCS: 36415; 80053; 80061; 82306; 83036; 84153

== ENCOUNTER 2024-04-28 10:24 | Outpatient (AMB) | payer OTHER, SELFPAY ==
[2024-04-28 10:27] VITALS: BP 130/72; PULSE 87; O2SAT 96; BMI 40.4
--- NOTE | 2024-04-28 10:27 | A.OFFPC_ITS ---
Vital Signs 04/28/24 10:27 Height 5 ft 5 in Weight 243 lb BMI 40.4 BP 130/72 Blood Pressure Location Lt brachial Position Sitting Pulse 87 Pulse Source Pulse Oximeter Pulse Oximetry (%) 96 Oxygen Delivery Method Room Air Intake Visit Reasons: 3 month follow up DM Intake Note: Pr is here today for his f/u 3 m o. DM Allergies Seasonal Allergies Allergy (Mild, Verified 04/28/24 10:40) sneezing, runny nose Medication List - Last Reconciled 04/28/24 by Caitlyn Arreola MD atorvastatin 20 mg PO Q2D 90 days blood sugar diagnostic ([employer] Ultra Test strips) Test blood sugar 3 times per day lancets test blood sugar 3 times per day lisinopril-hydrochlorothiazide 20-12.5 mg 1 tab PO DAILY metformin 500 mg PO BID metoprolol tartrate 25 mg PO BID 90 days semaglutide (Ozempic) 1 mg (0.75 mL) subcut QWEEK venlafaxine ER 75 mg PO DAILY Tobacco use date assessed: 04/28/24 Fall risk assessment: No Falls in past year Last assessed Fall Risk: 04/28/24 Dental Screening Dental Screen Date: 04/28/24 Did you have a dental visit in the last 12 months?: Yes Did you have a dental problem in the last 6 months where you did not have access to dental care?: No Was dental information given to patient?: Patient has dentist HPI 3 month follow up DM HPI Details 68-year-old male here today for follow-u p on his diabetes mellitus and hyperlipidemia. He is currently on metformin 500 mg 1 tablet twice a day and was switched from Trulicity to Ozempic 1 mg once a week, and continued on 20 mg of atorvastatin every other day. His latest fasting labs showed lipids are within normal limits, and there is some improvement in his diabetes control with hemoglobin A1c now lower at. 7.2%, after just recently being switched from Trulicity to Ozempic approximately 2 weeks ago. Patient tolerating switch well with no adverse effects reported. [facility] Medical History Diabetic neuropathy associated with diabetes mellitus due to underlying condition Plantar callus Anemia Type 2 diabetes mellitus with other diabetic kidney complication Lumbago History of nephrolithiasis SYLVIA on CPAP Type 2 diabetes mellitus without complication, with no history of insulin use Morbid obesity Abdominal mass, RUQ (right upper quadrant) Surgical History H/O ventral hernia repair Family History Other No significant family history Social History Housing: Apartment Alcohol intake: never Patient Tobacco Use Status: Never used Tobacco e-Cigarette/Vaping Use: Never Used Current occupational status: disabled Cognitive needs: No Hearing needs: No Vision needs: No Questionnaire PHQ-9 Over the last 2 weeks, how often have you been bothered by any of the following problems? Depression Screening Interpretation: Negative Depression Screening Done: Yes Source: Developed by Drs. Asad Mon, Siobhan Carrillo, Jalil Grijalva and colleagues, with an educational billy from [employer]. Thrive Questionnaire Date Thrive assessed: 01/14/24 I am a: Patient What is your living situation today?: I have a steady place to live Within the past 12 months, did the food you bought not last and you didn't have the money to get more?: I choose not to answer this question Within the past 12 months, did you worry whether your food would run out before you got money to buy more?: I choose not to answer this question Do you have trouble paying for medicines?: I choose not to answer this question Do you have trouble getting transportation to medical appointments?: I choose not to answer this question Do you have trouble paying your heating and electricity bill?: I choose not to answer this question Do you have trouble taking care of your child, family member or friend?: I choose not to answer this question Do you have trouble with day-to-day activities such as bathing, preparing meals, shopping, managing finances, etc.?: I choose not to answer this question Are you currently unemployed and looking for a job?: I choose not to answer this question Are you interested in more education?: I choose not to answer this question Please select the resources that you would like help with: None Currently or been in a relationship where the following occur: I choose not to answer THRIVE Score: 0 AUDIT C Alcohol Use Questionnaire (AUDIT-C) 1. How often do you have a drink containing alcohol?: Never Total Score: 0 NINFA-7 AMB Questionnaire NINFA-7 Date NINFA - 7 assessed: 01/14/24 Feeling nervous, anxious, or on edge: 0 = Not at all Not being able to stop or control worryin = Not at all Worrying too much about different things: 0 = Not at all Trouble relaxin = Not at all Being so restless that it is hard to sit still: 0 = Not at all Becoming easily annoyed or irritable: 0 = Not at all Feeling afraid as if something awful might happen: 0 = Not at all Total NINFA-7 score (0-4 normal; 5-9 mild; 10-14 moderate; 15-21 severe): 0 Source: Developed by Drs. Asad Mon, Siobhan Carrillo, Jalil Grijalva and colleagues, with an educational billy from [employer]. Review of Systems Const Denies body aches, Denies fever(s), Denies headache(s), Denies weakness and Reports weight loss Eyes Details: Goes to [facility] at [address] [place] [address] [address] in [facility], no retinopathy, beginning glaucoma Denies change in vision ENT Denies dizziness, Denies headache(s), Denies nasal congestion, Denies nasal discharge and Denies sore throat Card Denies chest pain, Denies lightheadedness and Denies dyspnea Resp Denies chest congestion, Denies cough and Denies dyspnea GI Denies abdominal pain, Denies change in bowel habits and Denies heartburn Denies hematuria, Denies difficulty urinating and Denies dysuria Musc Reports no additional complaints Skin/Breast Denies lesions and Denies rash Neuro Denies dizziness, Denies headache(s) and Denies weakness Psych Reports no additional complaints Endo Reports no additional complaints Kevan/Lymph Denies easy bleeding and Denies easy bruising Aller/Immun Reports no additional complaints Physical exam (Primary Care) Vital Signs: Last Vital Signs Pulse 87 04/28/24 10:27 BP 130/72 04/28/24 10:27 Pulse Ox 96 04/28/24 10:27 Oxygen Delivery Method Room Air 04/28/24 10:27 BMI result Body Mass Index 40.4 Tobacco/Smoking Status: Tobacco use Status Tobacco use date assessed 04/28/24 04/28/24 10:33 Patient Tobacco Use Status Never used Tobacco 04/28/24 10:28 e-Cigarette/Vaping Use Never Used 04/28/24 10:28 Depression Screening Interpretation: Negative Thrive Assessment: Date of Thrive Assessment Date Thrive assessed 01/14/24 04/28/24 10:28 Currently or been in a relationship where the following occur: I choose not to answer Const General: no acute distress and alert Nutritional Appearance: obese morbidly obese Orientation/consciousness: patient oriented x3 HENMT Ears: external ears normal General nose exam: Normal external nose present and No nasal discharge present Mouth: oropharynx normal and moist mucous membranes Eyes General: appearance normal, both eyes and all related structures Neck Neck: Yes full ROM, Yes no lymphadenopathy and Yes supple Resp Effort & Inspection: normal respiratory effort and able to speak in complete sentences Auscultation: clear to auscultation bilaterally Cardio Rate: regular rate Rhythm: regular rhythm Heart sounds: S1 normal heart sound present and S2 normal heart sound present Peripheral pulses: posterior tibial pulses present and dorsalis pedis present GI Palpation (GI): Soft to palpation, nontender and no masses Auscultation: normal bowel sounds Skin General skin exam: no rashes or lesions noted Neuro General: patient oriented x3, moves all extremities, no focal motor deficits and CN's II-XI intact bilaterally Extrem General: Yes full ROM, Yes no joint enlargement, Yes no pedal edema, Yes no calf tenderness and Yes normal gait Results Reviewed Results Reviewed: Laboratory Tests 01/11/24 04/22/24 08:46 06:07 Estimat Average Glucose 160 Hemoglobin A1c % 7.2 H Urine Creatinine 129.10 Urine Microalbumin 1198.0 Microalb/Creat Ratio 927.9 H Name: Waqar Sánchez Age/Sex: 68/M : 1955 Unit#: [id number] Attend Dr: Caitlyn Arreola MD Re04/22/24 Status: DEP REF Location: [facility] Disch: SPEC : [id number] [place]: 04/22/24 STATUS: COMP REQ : [id number] RECD: 04/22/[address]: Caitlyn Arreola MD COMP: 04/22/24-1037 ENTERED: 04/22/[address] [facility] DR: ORDERED: CMP Fast, Lipid Panel, Vitamin D 25-OH Test Result Flag Reference Sodium 140 135-145 mmol/L Potassium 4.5 3.3-5.1 mmol/L CL 101 96-108 mmol/L CO2 32 H 22-29 mmol/L Gap 12 12-20 BUN 20 H 9-16 mg/dL Creat 0.88 0.5-1.4 mg/dL EGFR > 60 NOTE: For -[place] individuals, multiply the result by 1.210. Chronic Kidney Disease: Estimated GFR < 60 mL/min/1.73m2 Severe Kidney Disease: Estimated GFR < 15 mL/min/1.73m2 FBS 155 H 60-99 mg/dL A fasting glucose of 126 mg/dl or greater on more than one occasion is considered diagnostic of diabetes. CA 10.1 8.4-10.2 mg/dL Total Bili 0.6 0.0-1.0 mg/dL AST (GOT) 19 5-37 U/L ALT (GPT) 24 0-40 U/L Protein, Total 7.4 6.5-8.0 g/dL Alb 4.3 3.5-5.0 g/dL Triglyceride 159 H <150 mg/dL Desirable Triglyceride: less than 150 mg/dL Borderline High Triglyceride 150-199 mg/dL High Triglyceride: 200-499 mg/dL Very High Triglyceride: greater than or equal to 5OO mg/dL Cholesterol 136 <200 mg/dL Desirable Cholesterol: less than 200 mg/dL Borderline High Cholesterol: 200-239 mg/dL High Cholesterol: greater than 239 mg/dL LDL Calculated 75 <100 mg/dL Desirable LDL: less than 100 mg/dL Near Optimal/Above Optimal LDL: 110-129 mg/dL Borderline High LDL: 130-159 mg/dL High LDL: 160-189 mg/dL Very High LDL: greater than or equal to 190 mg/dL HDL 30 L >40 mg/dL Desirable HDL: greater than 40 mg/dL Note: This HDL assay may give artificially low results in patients with liver disease. Alk Phos 69 39-117 U/L Vit D 25-OH Tot 46.4 >30 ng/mL Health Based Reference Values* < 20 ng/mL Deficient 20-30 ng/mL Insufficient > 30 ng/mL Sufficient Coding Level of Care Code Est Pt Level 4 (06831) Complex EM visit Add On G2211 Diagnoses Primary hypertension I10 Hypertension type: primary hypertension Pure hypercholesterolemia E78.00 Hyperlipidemia type: pure hypercholesterolemia Type 2 diabetes mellitus with other diabetic kidney complication E11.29 Assessment & Plan Assessment & Plan (1) Hypertension: Code(s): I10 - Essential (primary) hypertension Category: Medical Qualifiers: Hypertension type: primary hypertension Qualified Code(s): I10 - Essential (primary) hypertension Plan: Blood pressure at goal of less than 130/80. Continue lisinopril-HCTZ 20-12.5 mg 1 tablet daily. Reinforced importance of following a low sodium diet, getting regular exercise, and lowering stress levels. (2) Hyperlipidemia: Code(s): E78.5 - Hyperlipidemia, unspecified Category: Medical Qualifiers: Hyperlipidemia type: pure hypercholesterolemia Qualified Code(s): E78.00 - Pure hypercholesterolemia, unspecified Plan: Fasting lipid results are within normal limits, continued on atorvastatin 20 mg taken 1 tablet every other day, continue with adherence to healthy eating habits, low-cholesterol diet and getting regular exercise. (3) Type 2 diabetes mellitus with other diabetic kidney complication: Code(s): E11.29 - Type 2 diabetes mellitus with other diabetic kidney complication Category: Medical Plan: Improvement in sugar control noted with hemoglobin A1c at 7.2% . Weight loss also has been noted after starting Ozempic 1 mg once a week, combined with metformin 500 mg taken 1 tablet twice a day. Will continue with present treatment. Can up-to-date with his diabetes retinopathy screening and diabetes foot exam. 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, E78.00 - Pure hypercholesterolemia, unspecified, I10 - Essential (primary) hypertension Basic Metabolic Panel Fasting 09/06/24 E08.40 - Diabetes mellitus due to underlying condition with diabetic neuropathy, unspecified, E11.29 - Type 2 diabetes mellitus with other diabetic kidney complication, E78.00 - Pure hypercholesterolemia, unspecified, I10 - Essential (primary) hypertension Microalbumin, Random (w Creat) 09/06/24 E08.40 - Diabetes mellitus due to underlying condition with diabetic neuropathy, unspecified, E11.29 - Type 2 diabetes mellitus with other diabetic kidney complication, E78.00 - Pure hypercholesterolemia, unspecified, I10 - Essential (primary) hypertension Lipid Panel 09/06/24 E08.40 - Diabetes mellitus due to underlying condition with diabetic neuropathy, unspecified, E11.29 - Type 2 diabetes mellitus with other diabetic kidney complication, E78.00 - Pure hypercholesterolemia, unspecified, I10 - Essential (primary) hypertension Vitamin D 25-OH Total 09/06/24 E08.40 - Diabetes mellitus due to underlying condition with diabetic neuropathy, unspecified, E11.29 - Type 2 diabetes mellitus with other diabetic kidney complication, E78.00 - Pure hypercholesterolemia, unspecified, I10 - Essential (primary) hypertension
== END 2024-04-28 11:39 | disposition home or self-care (01) ==
PROVIDERS: PCP Internal Medicine; Visit Provider Internal Medicine
DX: I10 Essential (primary) hypertension (principal); E78.00 Pure hypercholesterolemia, unspecified; E11.29 Type 2 diabetes mellitus with other diabetic kidney complication

== ENCOUNTER → 2024-04-28 10:24 | Outpatient (BNVA) | payer OTHER, SELFPAY | PROVIDERS: PCP Internal Medicine; Visit Provider Internal Medicine | DX: I10 Essential (primary) hypertension (principal); E78.00 Pure hypercholesterolemia, unspecified; E11.29 Type 2 diabetes mellitus with other diabetic kidney complication; Z79.84 Long term (current) use of oral hypoglycemic drugs; Z79.899 Other long term (current) drug therapy | CPT/HCPCS: 99212 ==

== ENCOUNTER 2024-09-15 13:52 | Outpatient (AMB) | payer MEDICARE, OTHER, MEDICAID, SELFPAY ==
--- NOTE | 2024-09-15 14:02 | A.OFFVIS_ITS ---
Vital Signs 09/15/24 14:04 Height 5 ft 5 in Weight 238 lb BMI 39.6 BP 144/84 H Blood Pressure Location Rt brachial Position Sitting Pulse 78 Pulse Source Pulse Oximeter Pulse Oximetry (%) 94 Oxygen Delivery Method Room Air Intake Visit Reasons: Follow up Intake Note: Patient presents follow up SYLVIA. No compliance(last compliance 10/27/23) [employer] Required: No Accompanied by: Self / Same As Patient Allergies Seasonal Allergies Allergy (Mild, Verified 04/28/24 10:40) sneezing, runny nose PFSH Medical History Diabetic neuropathy associated with diabetes mellitus due to underlying condition Plantar callus Anemia Type 2 diabetes mellitus with other diabetic kidney complication Lumbago History of nephrolithiasis SYLVIA on CPAP Type 2 diabetes mellitus without complication, with no history of insulin use Morbid obesity Abdominal mass, RUQ (right upper quadrant) Surgical History H/O ventral hernia repair Family History Other No significant family history Social History Housing: Apartment Alcohol intake: never Patient Tobacco Use Status: Never used Tobacco e-Cigarette/Vaping Use: Never Used Current occupational status: disabled Cognitive needs: No Hearing needs: No Vision needs: No Coding
[2024-09-15 14:04] VITALS: BP 144/84; PULSE 78; O2SAT 94; BMI 39.6
--- NOTE | 2024-09-15 14:24 | MHC.OFFVIS ---
Vital Signs 09/15/24 14:04 Height 5 ft 5 in Weight 238 lb BMI 39.6 BP 144/84 H Blood Pressure Location Rt brachial Position Sitting Pulse 78 Pulse Source Pulse Oximeter Pulse Oximetry (%) 94 Oxygen Delivery Method Room Air Intake Visit Reasons: Follow up Allergies Seasonal Allergies Allergy (Mild, Verified 04/28/24 10:40) sneezing, runny nose HPI Comments Details: [age] year male presents for follow-up for management of obstructive sleep apnea. Patient states he has not received any new BiPAP supplies since his last visit here in March. The order for new BiPAP supplies and transfer service was sent to [facility] in March 2024- however patient states heard from them. Patient states he can not sleep without his BiPAP machine. His machine is not connected to a remote compliance platform, thus we are not able to assess PAP compliance or residual AHI at this time. Patient states he is in need of a new mask, tubing, filters. However he does not use the water reservoir, as he states he does not tolerate humidified water from his BiPAP machine. 03/14/2024, initial HPI: 68-yr-old male presents for new in-person patient visit to [facility] w/ sleep medicine, as he is need of new PAP supplies. Patient reports he was diagnosed w/ severe obstructive sleep apnea at least 15 yrs ago. He was initially started on CPAP, and eventually switched to BiPAP in ~2016. Pt states he sleeps well w/ BiPAP. He cannot sleep w/o using his BiPAP. He denies daytime sleepiness when he uses his machine. He denies leg cramps or bothersome leg movements. Prior to starting PAP tx, he would have snoring, daytime tiredness. He states he has run out of his PAP supplies. He has not had a respiratory company in some time. Per review of Denise notes, previous sleep studies: [facility] Split Night Polysomnogram Date 10/13/2009 . SE 78 % SM 94 %. Without PAP: in REM for 9 % of this phase. RDI 70 (AHI 62), REM (RDI 65 - AHI 65), Central apneas 0; Obstructive apneas 67; Mixed apneas 4; hypopneas 139; RERAs 30; average oxygen saturation 93% (lowest 67%); PLMs 1. With PAP: in REM for 24 % of this phase. At the optimal pressure of 12 via CPAP; RDI 0 (AHI 0), Central apneas 0; Obstructive apneas 0; Mixed apneas 0; hypopneas 0; RERAs 0; and, average oxygen saturation was 94%; PLMs ~0. ? [facility] Polysomnogram treatment study. Date 05/03/2017 . SE 55 % SM 63 %; spent 4 % of the study in REM. At the optimal pressure of BiPAP 25/20; RDI 0 (AHI 0), Central apneas 0; Obstructive apneas 0; Mixed apneas 0; hypopneas 0; RERAs 0; and, average oxygen saturation was 94%. For the entire study, PLMs ~26. [facility] Medical History Diabetic neuropathy associated with diabetes mellitus due to underlying condition Plantar callus Anemia Type 2 diabetes mellitus with other diabetic kidney complication Lumbago History of nephrolithiasis SYLVIA on CPAP Type 2 diabetes mellitus without complication, with no history of insulin use Morbid obesity Abdominal mass, RUQ (right upper quadrant) Surgical History H/O ventral hernia repair Family History Other No significant family history Social History Housing: Apartment Alcohol intake: never Patient Tobacco Use Status: Never used Tobacco e-Cigarette/Vaping Use: Never Used Current occupational status: disabled Cognitive needs: No Hearing needs: No Vision needs: No Physical Exam Vital Signs: Last Vital Signs Pulse 78 09/15/24 14:04 BP 144/84 H 09/15/24 14:04 Pulse Ox 94 09/15/24 14:04 Oxygen Delivery Method Room Air 09/15/24 14:04 BMI result Body Mass Index 39.6 Const General: no acute distress Orientation/consciousness: patient oriented x3 HEENT Other: Mallampati stage IV Resp Effort & Inspection: normal respiratory effort and able to speak in complete sentences Neuro Other: Slow to stand, mild antalgic gait- pt states he forgot his w/c/walker. General: patient oriented x3 Psych Mental Status: mental status grossly normal Speech and movement: Clear speech present Attitude: cooperative Assessment & Plan Assessment & Plan (1) Severe obstructive sleep apnea: Code(s): G47.33 - Obstructive sleep apnea (adult) (pediatric) Category: Medical Plan Continue BiPAP 25/20 cmH2O with full of using nightly greater 4 hours, as pt has had good clinical effect from use. Pt declines undergoing f/u sleep study at this time- states is tolerating his current PAP tx settings well. Request for respiratory company service transfer, mask fitting and supplies, and continuation of BipAP 25-20 cm H2O order written. We will reach out to [facility], company we last sent the order to to determine if there were any particular issues on why patient did not hear from. Patient advised to reach out to us in 1-2 weeks if he does not hear a local respiratory supply company. Pt to call with any worsening concerns or questions. Pt to follow-up in 6 months or sooner prn. Coding Level of Care Code Est Pt Level 3 (87027) Diagnoses Severe obstructive sleep apnea G47.33
--- OUTSIDE RECORDS SUMMARY | 2024-09-15 15:43 | XMS_ITS | Encounter Summary ---
Author Organization [facility] Address [address] [place] [address] [address] [place] [address] Care Team Providers Care Teletypesetter Monitor Name Role Phone Unavailable Primary Care Provider Unavailabl e Encounter Details Date Type Department Care Team (Latest Contact Info) Description 09/07/2020 Abstract [facility] CONVERSIONS Dental, Provider, DDS Social History Tobacco Use Types Packs/Day Years Used Date Smoking Tobacco: Never Assessed Sex and Gender Information Value Date Recorded Sex Assigned at Male 05/08/2022 10:15 AM EDT Legal Sex Male 10:15 AM EDT Gender Identity Male 05/08/2022 10:15 AM EDT Sexual Orientation Straight 05/08/2022 10 :15 AM EDT documented as of this encounter Plan of Treatment Not on file documented as of this encounter Visit Diagnoses Not on filedocumented in this encounter
--- OUTSIDE RECORDS SUMMARY | 2024-09-15 15:43 | XMS_ITS ---
Author Organization [facility] [place] Address [address] [place] [address] Care Team Providers Care Pan Shaker Name Role Phone Elba ZUÑIGA, Caitlyn Steward Primary Care Provider Un available Rachel Mahamed Unavailable [phone] Allergies No Known Allergies REASON FOR VISIT At Risk Footcare, Painful Nail(s) aggravated by shoes and causing difficulty standing/walking, Toe Irritation Medications Medication SIG (Take, Route, Frequency, Duration) Notes Start Date End Date Status Extra Depth Orthopedic Shoes, (1) Pair With (3) Pair Custom Heat Molded Multidensity Innersoles Dx: NIDDM/PVD(E11.51), Hammertoe Foot Deformity(M20.41,M20.42), Preulcerative Skin Lesion(s)(L85.1) Wear Daily for 365 days 01/22/2024 Active Venlafaxine HCl ER 75 MG 1 capsule with food Orally Once a day Active metFORMIN HCl 1000 MG 1 tablet with a me al Orally Once a day Active Loratadine 10 MG 1 tablet Orally Once a day Active Lisinopril-hydroCHLOROthia zide 10-12.5 MG 1 tablet Orally Once a day Active Atorvastatin Calcium 20 MG/5ML 5 mL Orally Once a day Activ e Vitamin D3 Active Metoprolol Tartrate 25 MG 1 tablet with food Orally Twice a day Active Social History Tobacco Use: Social History [...] No Vital Signs Height 5ft 5in in 05/02/2024 Procedures Procedure Date Ordered Date Performed Result Body Sit e 16345-[id number] NAIL, 6 OR MORE 05/02/2024 N/A [id number] SKIN LESIONS, OVER 4 05/02/2024 N/A Encounters Encounter Location Date Provider Diagnosis [facility] [address] [address] 05/02/2024 Mahamed Ramos Type 2 diabetes mellitus with diabetic peripheral angiopathy without gangrene E11.51 ; Tinea unguium B35.1 ; Pain in right toe(s) M79.674 ; Pain in left toe(s) M79.675 ; Other hammer toe(s) (acquired), right foot M20.41 and Other hammer toe(s) (acquired), left foot M20.42 Assessments Encounter Date Diagnosis (ICD Code) Assessment Notes Treatment Notes Treatment Clinical Notes Section Notes 05/02/2024 Type 2 diabetes mellitus with diabetic peripheral angiopathy without gangrene (ICD-10 - E11.51) Q7(A), Q8(2B), Q9(1B,2C) 05/02/2024 Tinea unguium (ICD-10 - B35.1) 05/02/2024 Pain in right toe(s) (ICD-10 - M79.674) 05/02/2024 Pain in left toe(s) (ICD-10 - M79.675) 05/02/2024 Other hammer toe(s) (acquired), right foot (ICD-10 - M20.41) Response to treatment,Impro vement 05/02/2024 Other hammer toe(s) (acquired), left foot (ICD-10 - M20.42) Response to treatment,Impro vement Plan Of Treatment Pending Test Test Name Order Date 31806-[id number] NAIL, 6 OR MORE 05/02/2024 [id number] SKIN LESIONS, OVER 4 05/02/20 24 Next Appt Details Follow Up: 2 Months, Reason: Provider Name:Mahamed Ramos , 10/21/2024 10:30:00 AM, [address] [place], [address], Procedure Notes * Category Sub-Category Detail Notes Debride Nail 6-10 Nail debridement Performance o f this nail treatment by a nonprofessional would put this patients foot and overall health at risk. Therefore, nail debridement was performed extensively to reduce/remove overall nail length, girth, thickness, subungual debris, and necrotic tissue, by manual and/or electrical means through the use of a nail nipper and/or dremel-type jig grinder set up operator, to a more viable healthy nail plate or bed tissue 6-10. Silver nitrate used for any petechial bleeding as necessary. Definitive antifungal treatment options have been reviewed and discussed with the patient. The patient chooses, no pharmaceutical tx - 88743 Keratoma Treatment Parring or Cutting o f Benign Hyperkeratotic Lesion(s) (-57) More than 4 Lesions - The Benign hyperkeratotic lesions, as described above were pared, and/or cut utilizing a sterile 15 blade, tissue nippers, and/or dremel - 03979 , Q8 Progress Notes * Waqar SÁNCHEZ NDOB: [birth year] (69 yo M)Acc No.[id number]:05/02/2024 Progress Note Patient:?TIGRERobertWaqar N Provider:?Mahamed Ramos DPM :1955???Age:68 Y???Sex:Male Srikanth e:05/02/2024 Address:[address] [place], [place] [id number] Pcp:Lee Charles Subjective: * Chief Complaints: * ???At Risk FootcarePainful N ail(s) aggravated by shoes and causing difficulty standing/walkingToe Irritation * HPI: ???At Risk footcare:?Pt States Last PCP Visit:?Date?04/28/2024 ???Toe pain:?Treatments:?Rx shoes .? * ROS:?General/Constitutional:?Nausea?denies.?Vomiting?denies.?Hunger Thirst?denies.?Loss appetite?denies.?Chills?denies.?Fatigue?denies.?Fever?denies.?Night Sweats?denies.?Unexplained weight loss?denies.?Unexplained weight gain?denies.?HEENTM:?Dentures?denies.?Dizziness?denies.?Glasses/contacts?admits .?Retinopathy?denies.?Blurred/double vision?denies.?TMJ?denies.?Discharge/drainage?denies.?Implants?denies.?Sore throat?denies.?Dental implants?denies.?Hard of hearing ?denies.?Difficulty chewing/swallowing/speaking?denies.?Nose bleeds?denies.?Sore mouth?denies.?Respiratory:?On O xygen?denies.?Pneumonia/pleurisy?denies.?Bronchitis?denies.?Emphysema?denies.?Co ughing?denies.?Cough blood?denies.?Shortness of breath?denies.?Wheezing?denies.?Cardiovascular:?Pacemaker?denies.?MVP?denies.?WPW?denies.?CHF?denies.?Heart attack?denies.?Septal defect?denies.?Rapid beat?denies.?Chest pain ?denies.?Atrial Fib.?denies.?Murmur/Palpitations?denies.?Gastrointestinal:?Hemorrhoids?denies.?Stomach/Abdominal pain?denies.?Dark blood stool?denies.?Irritable bowel ?denies.?Constipation?denies.?Diarrhea?denies.?Hematology:?Swelling?admits.?Clots?denies.?Varicose Veins?denies.?Bruising?denies.?Bleeding problem?denies.?Genitourinary:?Blood urine?denies.?Frequent/Painfu/urination/bladder control?denies.?Kidney stones?denies.?Infection (UTI)?denies.?Nephropathy?denies.?sex trans dis (STD)?denies.?Prostate?denies.?Musculoskeletal:?Hammertoes?admits.?Bunions?denies.?Back Pain?admits, sciatica.?Muscle Cramps/ Resting?denies.?Muscle cramps / walking?denies.?Generalized aches and pains?denies.?Weakness?denies.?Integ.:?Hand?denies.?Scars?denies.?Corns/calluses?admits.?Ingrown nails?admits.?Painful nails?admits.?Open Sores?denies.?Rashes?denies.?Neurologic:?Difficulty sleeping?denies.?Brain disorder?denies.?Numbness?denies.?Balance t rouble?denies.?Confusion?denies.?Fainting/blackouts?denies.?Tingling?denies.?[place] mors?denies.? * Medical History:? * Surgical History:?hernia abd ominal 2007 * Hospitalization/Major Diagno stic Procedure:?Denies Past Hospitalization * Family History:?Mother: dece ased, poor circulation, diagnosed with Family history of arthritis, Diabetic - NIDDM, Unspecified essential hypertension, Other malignant neoplasm of unspecified site.?Father: .? * Social History:?Tobacco Use:?Tobacco Use/Smoking?Are you a:?nonsmoker ?Additional Findings: Tobacco Non-User?Current non-smoker ?Tobacco use other than smoking?Are you an other tobacco user??No ???Drugs/Alcohol:?Drugs?Have you used drugs other than those for medical reasons in the past 12 months??No ?Alcohol Screen?Did you have a drink containing alcohol in the past year??No ?Points?0 ?Interpretation?Negative ???Miscellaneous:?Caffeine: yes, frequency:, 1-2 cups per day. ?Children: yes. ?Exercise: yes, walking. 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 * Medications:?TakingVitamin D 3 Atorvastatin Calcium 20 MG/5ML Suspension 5 mL Orally Once a day Metoprolol Tartrate 25 MG Tablet 1 tablet with food Orally Twice a day Lisinopril-hydroCHLOROthiazide 10-12.5 MG Tablet 1 tablet Orally Once a day Loratadine 10 MG Tablet 1 tablet Orally Once a day metFORMIN HCl 1000 MG Tablet 1 tablet with a meal Orally Once a day Venlafaxine HCl ER 75 MG Capsule Extended Release 24 Hour 1 capsule with food Orally Once a day Extra Depth Orthopedic Shoes, (1) Pair With (3) Pair Custom Heat Molded Multidensity Innersoles . Dx: NIDDM/PVD(E11.51), Hammertoe Foot Deformity(M20.41,M20.42), Preulcerative Skin Lesion(s)(L85.1) Wear Daily Medication List reviewed and reconciled with the patientTaking Vitamin D3 Taking Atorvastatin Calcium 20 MG/5ML Suspension 5 mL Orally Once a day Taking Metoprolol Tartrate 25 MG Tablet 1 tablet with food Orally Twice a day Taking Lisinopril-hydroCHLOROthiazide 10-12.5 MG Tablet 1 tablet Orally Once a day Taking Loratadine 10 MG Tablet 1 tablet Orally Once a day Taking metFORMIN HCl 1000 MG Tablet 1 tablet with a meal Orally Once a day Taking Venlafaxine HCl ER 75 MG Capsule Extended Release 24 Hour 1 capsule with food Orally Once a day Taking Extra Depth Orthopedic Shoes, (1) Pair With (3) Pair Custom Heat Molded Multidensity Innersoles . Dx: NIDDM/PVD(E11.51), Hammertoe Foot Deformity(M20.41,M20.42), Preulcerative Skin Lesion(s)(L85.1) Wear Daily Medication List reviewed and reconciled with the patient * Allergies:?N.K.D.A.yes[Aller gies Verified] Objective: * Vitals:?Ht:5ft 5in, Shoe siz e:12, BS:122, Ht-cm: 165.1 cm. * ???Past Orders: ???Lab:HEMOGLOBIN A1C (GLYCO HEMOGLOBIN) (Order Date - 12/25/2023) (Collection Date & Time - 12/25/2023 09:51 AM) ? Value Reference Range ?HEMOGLOBIN A1C % (HH) 6.0 * Examination: ???Ophthalmology Referral: ?DIABETES EYE EXAM?Procedure Performed:?Yes ?Date of Exam Performed?01/03/2024 ?Diabetic Retinopathy Screening:?Yes ?Findings of Diabetic Eye Exam:?no retinopathy?Vascular: ?DP PULSES (B):?07/12, B/L.?PT PULSES (B):?07/12, B/L.?CAPILLARY FILL TIME:? delayed, all digits, B/L.?TROPHIC CONDITION-TEXTURE/ELASTICITY/TURGOR/HAIR GROWTH (B):? decreased, with sparse to absent hair growth, B/L.?TEMPERTURE GRADIENT (C):? decreased, cool to cool, proximal to distal, B/L.?PIGMENTATION:?rubrous, B/L.?EDEMA (C):?07/12 , non-pitting , without aching pain , Leg(s).?CLAUDICATION (C):?denies, B/L.?REST PAIN:?denies, B/L.?Nails: ?NAILS are:?Elongated, overgrown, dystrophic, lytic, greater than 3mm thick, discolored and friable with crumbly malodorous subungual debris, with pain on palpation , TA , T1 , T3 , T4 , T5 , T8 , T9 , remaining nails are elongated, overgrown, dystrophic.?Dermatologic: ?SKIN FINDINGS:?Skin exam reveals Keratotic lesion(s) located at , SUB MTH (s) , 1 , B/L , SUB MTH (s) , 2 , B/L , SUB MTH (s) , 3 , B/L , SUB MTH (s) , 5 , B/L , Heel(s) , B/L.?Orthopedic: ?DIGITAL DEFORMITIES:?Digital contracture, PIPJ, 2-5 B/L, incompl-reducible to push-up test, no over, nor underlapping, no longer, with evidence of shoe producing skin irritation.?FOOTWEAR:?good condition, exhibit proper fit and accommodation for pedal deformities. OT were inspected and noted to be worn, but in good condition giving proper support at the present time.?General Examination: ?Footwear Evaluation?Footwear Evaluation performed:?Yes??? Assessment: * Assessment: 1.?Type 2 diabetes mellitus with diabetic peripheral angiopathy without gangrene - E11.51???Notes :Q7(A), Q8(2B), Q9(1B,2C)???2.?Tinea unguium - B35.1???3.?Pain in right toe(s) - M79.674???4.?Pain in left toe(s) - M79.675???5.?Other hammer toe(s) (acquired), right foot - M20.41???Specify :Chronic problem, Stable (1=3,2=4)???Notes :Response to treatment,Improvement???6.?Other hammer toe(s) (acquired), left foot - M20.42???Specify :Chronic problem, Stable (1=3,2=4)???Notes :Response to treatment,Improvement??? Plan: * Treatment: 2.?Tinea unguium?Procedure: [id number] NAIL, 6 OR MORE * Procedures:?Debride Nail 6-10:?Nail debridement?Performance of this nail treatment by a nonprofessional would put this patients foot and overall health at risk. Therefore, nail debridement was performed extensively to reduce/remove overall nail length, girth, thickness, subungual debris, and necrotic tissue, by manual and/or electrical means through the use of a nail nipper and/or dremel-type jig grinder set up operator, to a more viable healthy nail plate or bed tissue 6-10. Silver nitrate used for any petechial bleeding as necessary. Definitive antifungal treatment options have been reviewed and discussed with the patient. The patient chooses, no pharmaceutical tx - 91874.?Keratoma Treatment:?Parring or Cutting of Benign Hyperkeratotic Lesion(s)?(-57) More than 4 Lesions - The Benign hyperkeratotic lesions, as described above were pared, and/or cut utilizing a sterile 15 blade, tissue nippers, and/or dremel - 11334 , Q8.? * Procedure Codes:?63455 DEBRI DE NAIL, 6 OR MORE, Modifiers: XS 52131 TRIM SKIN LESIONS, OVER 4, Modifiers: XS , Q8 * Preventive Medicine:? ??Counseling:?Discussion:?-13: Office or other outpatient visit for the evaluation and management of an established patient, which required a medically appropriate history and/or examination and LOW level of DECISION MAKING for: 1 STABLE ACUTE UNCOMPLICATED PROBLEM, 2 OR MORE MINOR PROBLEMS, OR 1 STABLE CHRONIC PROBLEM, THAT POSE(S) A LOW RISK FOR MORBIDITY/MORTALITY. The visit on the day of the encounter encompassed interpreting the data and educating the patient as to the nature of their condition, treatment options available according to their individual PMH, meds, allergies, and overall health/living conditions, as well as any potential risks or complications that may occur from a failure to adhere to, and participate in, the recommended course of therapy. The discussion included a complete verbal, and/or written explanation of the examination results, any x-rays taken, the proposed diagnosis, and outline of the treatment plan. A schedule for future care needs was also explained. The patient verbalized an understanding of the instructions at this time and agreed to be an active participant in their treatment. If the patient should think of any questions or concerns after the visit, I have encouraged the patient to call the office.?Shoe Gear Counseling:?A thorough inspection of the patients Rxed shoegear and inserts was performed and findings communicated. We reviewed the many important medical advantages for adhering to regularly wearing these shoe and insert accomidative devices daily as well as reviewed the fact that a failure in accepting these recommedations may be deleterious, unable to prevent, and disadvantagely result in, many pedal complications such as skin irritation, skin ulceration, infection, and even loss of toe/foot/leg/or even their life. Time was also spent reviewing the proper footcare techniques including daily skin moisturization, daily foot inspection for any interruption in skin integrity, open lesions, or sign of infection such as redness/malodor/drainage/swelling as well as daily shoe inspection for the presence of internal foreign bodies and shoe as well as insert wear. Patient questions re: shoes, inserts, and self foot inspections were answered to their satisfaction as the patient verbally confirmed a full understanding of the above information.? ??Screening/Special Tests:?Fall Risk?Screening:?No falls in the past year ?FALLS: Screening for Future Fall Risk?Have you had any falls with injury in the past year??No * Follow Up:?2 Months * Images: * Sign off status: Completed true * Provider:?Mahamed Ramos DPM Date:?2023 Generated for Diana ramires/Jack/Lennie on:?09/15/2024 03:43 PM EDT History and Physical Notes * HPI (History of Present Illness) Category Sub-Category Detail Notes Category Not es Toe pain Treatments: Rx shoes At Risk footcare Pt States Last PCP Visit: Date: 4 Examination Category Sub-Category Detail Notes Category Not es Dermatologic SKIN FINDINGS: Skin exam reveal s Keratotic lesion(s) located at , SUB MTH (s) , 1 , B/L , SUB MTH (s) , 2 , B/L , SUB MTH (s) , 3 , B/L , SUB MTH (s) , 5 , B/L , Heel(s) , B/L Orthopedic FOOTWEAR: good condition, exhibit proper fit and accommodation for pedal deformities. OT were inspected and noted to be worn, but in good condition giving proper support at the present time DIGITAL DEFORMITIES: Digital contracture , PIPJ, 2-5 B/L, incompl-reducible to push-up test, no over, nor underlapping, no longer, with evidence of shoe producing skin irritation General Examination Footwear Evaluation Footwear Evaluatio n performed:: Yes Ophthalmology Referral DIABETES EYE EXAM Procedure Perform ed:: Yes ?Date of Exam Performed: 01/03/2024 Diabetic Retinopathy Screening:: Yes Findings of Diabetic Eye Exam:: no retin opathy Vascular DP PULSES (B): 1/4, B/L PT PULSES (B): 1/4, B/L CAPILLARY FILL TIME: delayed, all digits , B/L TEMPERTURE GRADIENT (C): decreased, cool to cool, proximal to distal, B/L TROPHIC CONDITION-TEXTURE/ELASTICITY/TURGOR/HAIR GROWTH (B): decreased, with sparse to absent hair gr owth, B/L EDEMA (C): 1/4 , non-pitting , without aching pain , Leg(s) CLAUDICATION (C): denies, B/L REST PAIN: denies, B/L PIGMENTATION: rubrous, B/L Nails NAILS are: Elongated, overg rown, dystrophic, lytic, greater than 3mm thick, discolored and friable with crumbly malodorous subungual debris, with pain on palpation , TA , T1 , T3 , T4 , T5 , T8 , T9 , remaining nails are elongated, overgrown, dystrophic
--- OUTSIDE RECORDS SUMMARY | 2024-09-15 15:43 | XMS_ITS ---
Author Organization [facility] cortez Zoe Address [address] [place] [address] Care Team Providers Care Feather Sawyer Name Role Phone Elba ZUÑIGA, Caitlyn Steward Primary Care Provider Un available Mahamed Ramos Unavailable [phone] Allergies No Known Allergies REASON FOR VISIT At Risk Footcare, Painful Nail(s) aggravated by shoes and causing difficulty standing/walking, Ingrown Nail, Skin Problem Medications Medication SIG (Take, Route, Frequency, Duration) Notes Start Date End Date Status Venlafaxine HCl ER 75 MG 1 capsule with food Orally Once a day Active Extra Depth Orthopedic Shoes, (1) Pair With (3) Pair Custom Heat Molded Multidensity Innersoles Dx: NIDDM/PVD(E11.51), Hammertoe Foot Deformity(M20.41,M20.42), Preulcerative Skin Lesion(s)(L85.1) Wear Daily for 365 days 01/22/2024 Active Ciclopirox Olamine 0.77 % 1 application Externally Twice a day to skin of feet including between the toes for 30 days Active Loratadine 10 MG 1 tablet Orally Once a day Active metFORMIN HCl 1000 MG 1 tablet with a me al Orally Once a day Active Vitamin D3 Active Atorvastatin Calcium 20 MG/5ML 5 mL Orally Once a day Activ e Metoprolol Tartrate 25 MG 1 tablet with food Orally Twice a day Active Lisinopril-hydroCHLOROthia zide 10-12.5 MG 1 tablet Orally Once a day Active Social History Tobacco Use: Social History Observation Description Date Details (start date - stop date) Never Smoker NA - NA Tobacco Use/Smoking Question Answer Notes Are you a: nonsmoker Additional Findings: Tobacco Non-User Current no n-smoker Tobacco use other than smoking: Question Answer Notes Are you an other tobacco user? No Vital Signs Height 5ft5in in 07/25/2024 Weight 246 lbs 07/25/2024 BMI 40.93 kg/m2 07/25/2024 Blood pressure systolic 132 mm Hg 07/25/19 25 Blood pressure diastolic 81 mm Hg 025 Procedures Procedure Date Ordered Date Performed Result Body Sit e 54238-IDDPTCV NAIL, 6 OR MORE 07/25/2024 N/A 03365-Zeqzolrx Plate 07/25/2024 N/A 43728-ZZFL SKIN LESIONS, OVER 4 07/25/2024 N/A Encounters Encounter Location Date Provider Diagnosis [facility] [address] [address] 07/25/2024 Mahamed Ramos Type 2 diabetes mellitus with diabetic peripheral angiopathy without gangrene E11.51 ; Tinea unguium B35.1 ; Pain in right toe(s) M79.674 ; Pain in left toe(s) M79.675 ; Ingrown nail L60.0 and Tinea pedis of both feet B35.3 Assessments Encounter Date Diagnosis (ICD Code) Assessment Notes Treatment Notes Treatment Clinical Notes Section Notes 07/25/2024 Type 2 diabetes mellitus with diabetic peripheral angiopathy without gangrene (ICD-10 - E11.51) Q7(A), Q8(2B), Q9(1B,2C) 07/25/2024 Tinea unguium (ICD-10 - B35.1) 07/25/2024 Pain in right toe(s) (ICD-10 - M79.674) 07/25/2024 Pain in left toe(s) (ICD-10 - M79.675) 07/25/2024 Ingrown nail (ICD-10 - L60.0) 07/25/2024 Tinea pedis of both feet (ICD-10 - B35.3) Plan Of Treatment Medication Medication Name Sig Start Date Stop Date Notes Ciclopirox Olamine 0.77 % 1 application Externally Twice a day to skin of feet including between the toes for 30 days Pending Test Test Name Order Date 74799-WOTXQNU NAIL, 6 OR MORE 07/25/2024 08593-Kgkqnjgc Plate 07/25/2024 13768-GNVZ SKIN LESIONS, OVER 4 07/25/19 25 Next Appt Details Follow Up: 2 Months, Reason: Provider Name:Mahamed Ramos , 10/21/2024 10:30:00 AM, [address] [place] [address], [id number], Procedure Notes * Category Sub-Category Detail Notes Nail Avulsion Procedure A fine sterile e levator was placed between the eponychium, nail fold, and nail plate to separate the structures. A sterile nail splitter, and/or sterile 316 blade, was then used to longitudinally section the nail along its entire length through the eponychium to the area under the nail fold. The offending portion of nail was from the nail bed with a rolling action and then removed with a hemostat. No underlying bone was identified. There was minimal bleeding as hemostasis was achieved through the temporary use of either a digital tourniquet or the aforementioned local with epinephrine. A bacitracin sterile dressing was applied. Local wound aftercare instructions were discussed and dispensed. The patient was informed of both conservative and future surgical procedures to prevent recurrence. Tylenol or Motrin was recommended for pain or discomfort (87255), DIABETES: Pt was advised as to the risk of delayed or nonhealing due to diabetes. Pt is to call the office with any questions, concerns, or complications Anesthesia 3cc of 1 percent Lid ocaine Plain local anesthesic utilizing aseptic technique Location Bilateral nail borde rs, T5 Debride Nail 6-10 Nail debridement Due to the cl inical pathology outlined in the exam findings, performance of this nail treatment is medically necessary as its management by an unskilled/untrained nonprofessional would put this patients foot and overall health at risk. Therefore, debridement to affected nail(s), as described in exam ( TA , T1 , T3 , T4 , T5 , T8 , T9 ), was performed exclusively by the physician of record to reduce/remove overall nail length, girth, thickness, subungual debris, and necrotic tissue, by manual and/or electrical means through the use of a nail nipper and/or dremel-type tankage grinder operator, to a more viable healthy nail plate or bed tissue 6-10 nails in total. Silver nitrate was used for any petechial bleeding as necessary. Definitive antifungal treatment options, both pharmaceutical and surgical, have been reviewed and discussed with the patient. The patient solely prefers the use of intermittent/as needed professional debridement services for their nail condition and understands the need for additional periodic treatments to maintain effectiveness in symptomatic relief - 51317 Keratoma Treatment Parring or Cutting o f Benign Hyperkeratotic Lesion(s) (-57) More than 4 Lesions - Due to the a t risk nature of the patients medical condition as documented in the exam findings, performance of this keratoderma treatment is medically necessary as its management by an unskilled/untrained nonprofessional would put this patients foot and overall health at risk. Therefore, the benign hyperkeratotic lesions, ( 10) in total, locations as stated and described in the exam ( SUB MTH (s) , 1 , B/L , SUB MTH (s) , 2 , B/L , SUB MTH (s) , 3 , B/L , SUB MTH (s) , 5 , B/L , Plantar, Heel(s) , B/L), were pared, and/or cut utilizing a sterile 15 blade, tissue nippers, and/or power dremel instrumentation by the physician of record - 01978, Q9 Progress Notes * Waqar SÁNCHEZ NDOB: (69 yo M)Acc No.[id number]:07/25/2024 Progress Note Patient:?Waqar SÁNCHEZ N Provider:?Mahamed Ramos DPM :1955???Age:69 Y???Sex:Male Srikanth e:07/25/2024 Address:[address] [place], [place] [id number] Pcp:Lee Charles Subjective: * Chief Complaints: * ???At Risk FootcarePainful N ail(s) aggravated by shoes and causing difficulty standing/walkingIngrown NailSkin Problem * HPI: ???At Risk footcare:?Pt States Last PCP Visit:?Date?07/01/2024 ???Skin problems:?Nature:?scaling , redness.?Location:?B/L .?Duration:?several days.?Course:?worse.? * ROS:?General/Constitutional:?Nausea?denies.?Vomiting?denies.?Hunger Thirst?denies.?Loss appetite?denies.?Chills?denies.?Fatigue?denies.?Fever?denies.?Night Sweats?denies.?Unexplained weight loss?denies.?Unexplained [...] Medical History:? * Surgical History:?hernia abd ominal 2006 * Hospitalization/Major Diagno stic Procedure:?Denies Past Hospitalization * Family History:?Mother: dece ased, poor circulation, diagnosed with Other malignant neoplasm of unspecified site, Diabetic - NIDDM, Unspecified essential hypertension, Family history of arthritis.?Father: .? * Social History:?Tobacco Use:?Tobacco Use/Smoking?Are you a:?nonsmoker ?Additional Findings: Tobacco Non-User?Current non-smoker ?Tobacco use other than smoking?Are you an other tobacco user??No * Medications:?TakingVitamin D 3 Atorvastatin Calcium 20 [...] patient * Allergies:?N.K.D.A.yes[Aller gies Verified] Objective: * Vitals:?Ht: 5ft5in, Wt:246, BMI:40.93, Shoe size: 12, BP:132/81mm Hg, BS: 120, Ht-cm: 165.1 cm, Wt-k.58 kg. * ???Past Orders: ???Lab:HEMOGLOBIN A1C (GLYCO HEMOGLOBIN) (Order Date - 06/08/2024) (Collection Date & Time - 06/08/2024 09:29 AM) ? Value Reference Range ?HEMOGLOBIN A1C % (HH) 6.3 * Examination: ???Ophthalmology Referral: ?DIABETES EYE EXAM?Procedure [...] , T5 , T8 , T9 , all other nails not described with characteristics as possessing mycosis are elongated, overgrown, and dystrophic.?Ingrown Nail: ?INSPECTION:?Reveals nail incurvation, pain on palpation, groove hypertrophy, Bilateral nail borders, T5.?Dermatologic: ?SKIN FINDINGS:?Skin exam reveals Keratotic lesion(s) located at , SUB MTH (s) , 1 , B/L , SUB MTH (s) , 2 , B/L , SUB MTH (s) , 3 , B/L , SUB MTH (s) , 5 , B/L , Plantar, Heel(s) , B/L , Skin shows sign(s) of, erythema, scaling, in a moccasin fashion, no fissure(s) present, B/L.? Assessment: * Assessment: 1.?Type 2 diabetes mellitus with diabetic peripheral angiopathy without gangrene - E11.51 (Primary)???Notes :Q7(A), Q8(2B), Q9(1B,2C)???2.?Tinea unguium - B35.1???3.?Pain in right toe(s) - M79.674???4.?Pain in left toe(s) - M79.675???5.?Ingrown nail - L60.0???Specify :Bilateral nail borders,?T5???6.?Tinea pedis of both feet - B35.3???Specify :Acute problem, Uncomplicated (3),Rx drug management (4)??? Plan: * Treatment: 2.?Tinea unguium?Procedure: 77567-NGLMLZG NAIL, 6 OR MORE 3.?Ingrown nail?Procedure: 29309-Xbxepwhv Plate 4.?Tinea pedis of both feet? Start Ciclopirox Olamine Cream, 0.77 %, 1 application, Externally, Twice a day to skin of feet including between the toes, 30 days, 120, Refills 3.?? * Procedures:?Debride Nail 6-10:?Nail debridement?Due to the clinical pathology outlined in the exam findings, performance of this nail treatment is medically necessary as its management by an unskilled/untrained nonprofessional would put this patients foot and overall health at risk. Therefore, debridement to affected nail(s), as described in exam (?TA?,?T1?,?T3?,?T4?,?T5?,?T8?,?T9?), was performed exclusively by the physician of record to reduce/remove overall nail length, girth, thickness, subungual debris, and necrotic tissue, by manual and/or electrical means through the use of a nail nipper and/or dremel-type tankage grinder operator, to a more viable healthy nail plate or bed tissue 6- 10 nails in total. Silver nitrate was used for any petechial bleeding as necessary. Definitive antifungal treatment options, both pharmaceutical and surgical, have been reviewed and discussed with the patient. The patient solely prefers the use of intermittent/as needed professional debridement services for their nail condition and understands the need for additional periodic treatments to maintain effectiveness in symptomatic relief - 93684.?Keratoma Treatment:?Parring or Cutting of Benign Hyperkeratotic Lesion(s)?(-57) More than 4 Lesions - Due to the at risk nature of the patients medical condition as documented in the exam findings, performance of this keratoderma treatment is medically necessary as its management by an unskilled/untrained nonprofessional would put this patients foot and overall health at risk. Therefore, the benign hyperkeratotic lesions, ( 10) in total, locations as stated and described in the exam (?SUB MTH (s)?,?1?,?B/L?,?SUB MTH (s)?,?2?,?B/L?,?SUB MTH (s)?,?3?,?B/L?,?SUB MTH (s)?,?5?,?B/L?,?Plantar,?Heel(s)?,?B/L), were pared, and/or cut utilizing a sterile 15 blade, tissue nippers, and/or power dremel instrumentation by the physician of record - 44392, Q9.?Nail Avulsion:?Location?Bilateral nail borders,?T5.?Anesthesia?3cc of 1 percent Lidocaine Plain local anesthesic utilizing aseptic technique.?Procedure?A fine sterile elevator was placed between the eponychium, nail fold, and nail plate to separate the structures. A sterile nail splitter, and/or sterile 316 blade, was then used to longitudinally section the nail along its entire length through the eponychium to the area under the nail fold. The offending portion of nail was from the nail bed with a rolling action and then removed with a hemostat. No underlying bone was identified. There was minimal bleeding as hemostasis was achieved through the temporary use of either a digital tourniquet or the aforementioned local with epinephrine. A bacitracin sterile dressing was applied. Local wound aftercare instructions were discussed and dispensed. The patient was informed of both conservative and future surgical procedures to prevent recurrence. Tylenol or Motrin was recommended for pain or discomfort (63064), DIABETES: Pt was advised as to the risk of delayed or nonhealing due to diabetes. Pt is to call the office with any questions, concerns, or complications.? * Procedure Codes:?68206 DEBRI DE NAIL, 6 OR MORE, Modifiers: XS 01389 Avulsion Plate, Modifiers: XS , [id number] TRIM SKIN LESIONS, OVER 4, Modifiers: XS [...] have encouraged the patient to call the office.?Tinea Pedis:?The patient was counseled on the diagnosis, potential etiologies, and treatment options for their skin condition. We discussed the risks and benefits of each option from performing no treatment, to utilizing OTC topical skin creams, prescription topical creams, customized compounded topical medications, and, if necessary, to utilize oral antifungal therapy. We discussed the advantages and disadvantages of each possible treatment and importance for adherence to all the recommended therapies for optimum success and avoid potential complications such as open sore/infection/possible hospitalization. We discussed the potential effectiveness of each topical preparation as well as each ones possible side effects and/or patient medication interactions if oral therapy is selected. Patient questions re: the advantages and disadvantages of each treatment choice, medication use/dosage, successful outcomes, and application consistency were reviewed and the patient verbalized that all answers were clearly understood. The patient was told they can help alleviate symptoms by utilizing moisture absorbant innersoles with activated charcoal and baking soda, applying antifungal sprays daily, aerating toe web spaces at night by putting cotton or lambs wool between the toes, alternating shoe gear daily if possible so they can dry out, changing socks at least once during the day, wearing well-ventilated shoes or sandals. The patient has decided to apply antifungal skin creams to their feet as directed. Rx was sent to their pharmacy at the time of visit.? ??Screening/Special Tests:?Fall Risk?Screening:?No falls in the past year ?FALLS: Screening for Future Fall Risk?Have you had any falls with injury in the past year??No * Follow Up:?2 Months * Images: * Sign off status: Completed true * Provider:?Mahamed Ramos DPM Date:?2024 Generated for Diana ramires/Jack/Laurenitting on:?09/15/2024 03:43 PM EDT History and Physical Notes * HPI (History of Present Illness) Category Sub-Category Detail Notes Category Not es Skin problems Nature: scaling , redness Location: B/L Duration: several days Course: worse At Risk footcare Pt States Last PCP Visit: Date: 4 Examination Category Sub-Category Detail Notes Category Not es Ingrown Nail INSPECTION: Reveals nail inc urvation, pain on palpation, groove hypertrophy, Bilateral nail borders, T5 Dermatologic SKIN FINDINGS: Skin exam reveal s Keratotic lesion(s) located at , SUB MTH (s) , 1 , B/L , SUB MTH (s) , 2 , B/L , SUB MTH (s) , 3 , B/L , SUB MTH (s) , 5 , B/L , Plantar, Heel(s) , B/L , Skin shows sign(s) of, erythema, scaling, in a moccasin fashion, no fissure(s) present, B/L Ophthalmology Referral DIABETES EYE EXAM Procedu re Performed:: Yes ?Date of Exam Performed: 01/03/2024 Diabetic [...] , T5 , T8 , T9 , all other nails not described with characteristics as possessing mycosis are elongated, overgrown, and dystrophic
--- OUTSIDE RECORDS SUMMARY | 2024-09-15 15:43 | XMS_ITS | Patient Health Record ---
Author Organization [facility] Address [address] [place] [address] Care Team Providers Care Internal Recruiter Name Role Phone Elba ZUÑIGA, Caitlyn Steward Primary Care Provider Un available Mahamed Ramos Unavailable [phone] Allergies No Known Allergies Results Component Value Reference Range Notes HEMOGLOBIN A1C (GLYCOHEMOGLO BIN) Reviewed date:07/25/2024 09:52:01 AM Interpretation: Performing Lab: Notes/Report: HEMOGLOBIN A1C % (HH) 6.0 HEMOGLOBIN A1C (GLYCOHEMOGLO BIN) Reviewed date:07/25/2024 09:30:22 AM Interpretation: Performing Lab: Notes/Report: HEMOGLOBIN A1C % (HH) 6.3 Reason For Referral No Information Medications Medication SIG (Take, Route, Frequency, Duration) Notes Start Date End Date Status Vitamin D3 Active Atorvastatin Calcium 20 MG/5ML 5 mL Orally Once a day Activ e Metoprolol Tartrate 25 MG 1 tablet with food Orally Twice a day Active Venlafaxine HCl ER 75 [...] between the toes for 30 days Active Lisinopril-hydroCHLOROthia zide 10-12.5 MG 1 tablet Orally Once a day Active Loratadine 10 MG 1 tablet Orally Once a day Active metFORMIN HCl 1000 MG 1 tablet with a me al Orally Once a day Active Social History [...] Are you an other tobacco user? No Problems Problem Type SNOMED Code ICD Code Onset Dates Problem Status W/U Status Risk Notes Problem Acquired hammer toe of right foot (5150906053301 105) Other hammer toe(s) (acquired), right foot (M20.41) Active confirmed Response to treatment,I mprovement Problem Type 2 diabetes mellitus with peripheral angiopathy (372895195) Type 2 diabetes mellitus with diabetic peripheral angiopathy without gangrene (E11.51) Active confirmed Q7(A), Q8(2B), Q9(1B,2C) Problem Acquired hammer toe of left foot (2658722182087 103) Other hammer toe(s) (acquired), left foot (M20.42) Active confirmed Response to treatment,I mprovement Vital Signs Blood pressure diastolic 81 mm Hg 07/25/2024 Height 5ft5in in 07/25/2024 Blood pressure systolic 132 mm Hg 07/25/2024 Weight 246 lbs 07/25/2024 BMI 40.93 kg/m2 07/25/2024 Procedures Procedure Date Ordered Date Performed Result Body Sit e 33921-OMKCZMF NAIL, 6 OR MORE 01/22/2024 N/A 10357-HFKY SKIN LESIONS, OVER 4 01/22/2024 N/A 59940-SFRXIYA NAIL, 6 OR MORE 05/02/2024 N/A 26414-PRSD SKIN LESIONS, OVER 4 05/02/2024 N/A 35257-QIXZISK NAIL, 6 OR MORE 07/25/2024 N/A 93512-Sgujtnbh Plate 07/25/2024 N/A 77347-ZRUY SKIN LESIONS, OVER 4 07/25/2024 N/A Encounters Encounter Location Date Provider Diagnosis [facility] [place] [address] 01/22/2024 Mahamed Ramos Type 2 diabetes mellitus with diabetic peripheral angiopathy without gangrene E11.51 ; Tinea unguium B35.1 ; Pain in right toe(s) M79.674 ; Pain in left toe(s) M79.675 ; Other hammer toe(s) (acquired), left foot M20.42 and Other hammer toe(s) (acquired), right foot M20.[address] [address] 05/02/2024 Mahamed Ramos Type 2 diabetes mellitus with diabetic peripheral angiopathy without gangrene E11.51 ; Tinea unguium B35.1 ; Pain in right toe(s) M79.674 ; Pain in left toe(s) M79.675 ; Other hammer toe(s) (acquired), right foot M20.41 and Other hammer toe(s) (acquired), left foot M20.[address] [address] 07/25/2024 Mahamed Ramos Type 2 diabetes mellitus with diabetic peripheral angiopathy without gangrene E11.51 ; Tinea unguium B35.1 ; Pain in right toe(s) M79.674 ; Pain in left toe(s) M79.675 ; Ingrown nail L60.0 and Tinea pedis of both feet B35.[address] [address] 12/27/2023 Mahamedsiva Ramos [address] [address] 01/22/2024 Mahamed Ramos [address] [address] 04/29/2024 Mahamedsiva Ramos [address] [address] 07/30/2024 Mahamed Ramos Assessments Encounter Date Diagnosis (ICD Code) Assessment Notes Treatment Notes Treatment Clinical Notes Section Notes 01/22/2024 Type 2 diabetes mellitus with diabetic peripheral angiopathy without gangrene (ICD-10 - E11.51) 05/02/2024 Type 2 diabetes mellitus with diabetic peripheral angiopathy without gangrene (ICD-10 - E11.51) Q7(A), Q8(2B), Q9(1B,2C) 05/02/2024 Tinea unguium (ICD-10 - B35.1) 07/25/2024 Type 2 diabetes mellitus with diabetic peripheral angiopathy without gangrene (ICD-10 - E11.51) Q7(A), Q8(2B), Q9(1B,2C) 07/25/2024 Tinea unguium (ICD-10 - B35.1) 07/25/2024 Pain in right toe(s) (ICD-10 - M79.674) 05/02/2024 Pain in right toe(s) (ICD-10 - M79.674) 01/22/2024 Tinea unguium (ICD-10 - B35.1) 01/22/2024 Pain in right toe(s) (ICD-10 - M79.674) 05/02/2024 Pain in left toe(s) (ICD-10 - M79.675) 07/25/2024 Pain in left toe(s) (ICD-10 - M79.675) 07/25/2024 Ingrown nail (ICD-10 - L60.0) 05/02/2024 Other hammer toe(s) (acquired), right foot (ICD-10 - M20.41) Response to treatment,Impro vement 01/22/2024 Pain in left toe(s) (ICD-10 - M79.675) 01/22/2024 Other hammer toe(s) (acquired), left foot (ICD-10 - M20.42) 05/02/2024 Other hammer toe(s) (acquired), left foot (ICD-10 - M20.42) Response to treatment,Impro vement 07/25/2024 Tinea pedis of both feet (ICD-10 - B35.3) 01/22/2024 Other hammer toe(s) (acquired), right foot (ICD-10 - M20.41) Patient Educated with: DIABETIC FOOT CARE INSTRUCTIONS.p df (DIABETIC FOOT CARE INSTRUCTIONS.p df) Plan Of Treatment Pending Test Test Name Order Date 44692-BKYFIBI NAIL, 6 OR MORE 01/22/2024 40769-RIRZZNK NAIL, 6 OR MORE 05/02/2024 30022-PPGRUIN NAIL, 6 OR MORE 07/25/2024 23643-Qvttuowp Plate 07/25/2024 43932-OIWB SKIN LESIONS, OVER 4 07/25/19 66998-FGZF SKIN LESIONS, OVER 4 05/02/20 87721-KQJC SKIN LESIONS, OVER 4 01/22/20 Next Appt Details Provider Name:Mahamed Will Rachel , 10/21/2024 10:30:00 AM, [address] [facility], [place], [address], Insurance Providers Payer Name Payer Address Payer Phone Subscriber Number Group Number Insured Name Patient Relationship to Insured Coverage Start Date Coverage End Date Medicare [employer] [address] [place] [address] [id number] Waqar Sánchez Self - patient is the insured Medical (General) History Medical History History ICD Code Depression Diabetic Headaches/Migraines High blood pressure sinusitis Measles Mumps Chicken pox Surgical History Surgery Date(Month/Year) hernia abdominal 2006
--- OUTSIDE RECORDS SUMMARY | 2024-09-15 15:43 | XMS_ITS | Clinical Summary ---
[facility] Organization [facility] Address [address] [place] [address] Care Team Providers Care Vasc Tech Name Role Phone Unavailable Primary Care Provider Unavailabl e Surgical History Surgery Date Site/Laterality Comments HERNIA REPAIR PROCEDURE: HISTORICAL HERNIA REPAIR/UMB HERNIA REPAIR 1999 PROCEDURE: HISTORICAL HERNIA REPAIR/RUPERTO; COMMENT: about 1999 COLONOSCOPY 08/03/2020 PROCEDURE: HISTORICAL COLONOSCOPY; COMMENT: Diverticulosis and a 3 mm sigmoid colon polyp, pathology: hyperplastic. COLONOSCOPY 03/24/2010 PROCEDURE: HISTORICAL COLONOSCOPY; COMMENT: Up to cecum, good preparation, rectal polyp removed:hyperplastic, otherwise normal colon exam Medical History Medical History Date Comments Historical Medical DX 07/29/2007 DX:HTN Obesity 07/29/2007 DX:Obesity High cholesterol 07/29/2007 DX:High cholest laura Renal calculus 07/29/2007 DX:Renal calculu s; COMMENT: PASEED A RENAL CALCULUS LAST YEAR. MULTIPLE ATACKS SINCE AGE 18. Abdominal distention 07/29/2007 DX:Abdomina l distention Depression 06/28/2015 DX:Depression Anemia 02/15/2016 DX:Anemia History of suicidal ideation 02/15/2016 DX: History of suicidal ideation; COMMENT: January 2016 Positive HARISH (antinuclear antibody) 02/15/2016 DX:Positive HARISH (antinuclear antibody) BPH (benign prostatic hyperplasia) 05/04/2016 DX:BPH (benign prostatic hyperplasia) Adjustment disorder 05/04/2016 DX:Adjustmen t disorder Type 2 diabetes mellitus wit hout complication, without long-term current use of insulin ([facility]/HCC) 11/18/2018 DX:Type 2 diabetes me llitus without complication, without long-term current use of insulin (HCC) Type 2 diabetes mellitus wit hout complication, without long-term current use of insulin ([facility]/HCC) 11/18/2018 DX:Type 2 diabetes me llitus without complication, without long-term current use of insulin (HCC) Family History Medical History Relation Name Comments No Known Problems Aunt No Known Problems Brother No Known Problems Father No Known Problems Maternal Grandfather No Known Problems Maternal Grandmother Arthritis Mother No Known Problems Other No Known Problems Paternal Grandfather No Known Problems Paternal Grandmother No Known Problems Sister No Known Problems Uncle Blindness Neg Hx Cataracts Neg Hx Colon cancer Neg Hx Glaucoma Neg Hx Macular degeneration Neg Hx Strabismus Neg Hx Relation Name Status Comments Aunt Brother Father Maternal Grandfather Maternal Grandmother Mother Other Paternal Grandfather Paternal Grandmother Sister Uncle Social History Tobacco Use Types Packs/Day Years Used Date Smoking Tobacco: Never Smokeless Tobacco: Never Alcohol Use Standard Drinks/Week Comments No 0 (1 standard drink = 0.6 oz pur e alcohol) Sex and Gender Information Value Date Recorded Sex Assigned at Not on file Legal Sex Male 1:48 AM EST Gender Identity Not on file Sexual Orientation Not on file Obstetrics History Plan of Treatment Health Maintenance Due Date Last Done Comments Diabetes: Annual GFR (Glomerular Filtration Rate) 1955 Diabetes: Annual Foot Exam 1965 Diabetes: Annual Retina Eye Exam 1965 Hepatitis A Vaccines (1 of 2 - Risk 2-dose series) 1974 Pneumococcal Vaccine: 50+ Years (1 of 1 - PCV) 2005 Zoster Vaccines (1 of 2) 2005 Hepatitis B Vaccines (1 of 3 - Risk 3-dose series) 2015 RSV Immunization Patients 60+ Years Old (1 - Risk 60-74 years 1-dose series) 2015 DTaP,Tdap,and Td Vaccines (2 - Td or Tdap) 11/23/2018 11/23/2008 Abdominal Aortic Aneurysm (AAA) Screen 06/11/2022 Cholesterol Screening (Lipid Panel) 06/11/2022 Colorectal Cancer Screening: Colonoscopy 06/11/2022 Depression Screening 06/11/2022 Falls Risk Assessment 06/11/2022 Hepatitis C Screening 06/11/2022 Social Influencers of Health Screening 06/11/2022 Diabetes: Annual Urine Albumin-Creatinine Ratio (uACR) 06/24/2022 Diabetes: Blood Sugar Control Test (HGBA1C) 06/24/2022 Hypertension/CHF/CAD Annual BMP Blood Test 06/24/2022 COVID-19 Vaccine (2 - 2023-25 season) 2024 09/19/2020 Influenza Vaccine (#1) 2024 0, 04/26/2019, 03/22/2018, Additional history exists HIB Vaccines Aged Out No longer eligi ble based on patient's age to complete this topic HPV Vaccines Aged Out No longer eligi ble based on patient's age to complete this topic IPV Vaccines Aged Out No longer eligi ble based on patient's age to complete this topic MMR Vaccines Aged Out No longer eligi ble based on patient's age to complete this topic Meningococcal ACWY Vaccine Aged Out N o longer eligible based on patient's age to complete this topic Meningococcal B Vacine Aged Out No lo nger eligible based on patient's age to complete this topic RSV Immunization Patients Under 20 months Aged Out No longer eligible based on patient's age to complete this topic Varicella Vaccines Aged Out No longer eligible based on patient's age to complete this topic
--- OUTSIDE RECORDS SUMMARY | 2024-09-15 15:43 | XMS_ITS | Clinical Summary ---
Author Organization [employer] Address [address] [facility] 7t [place] [address] Care Team Providers Care Review Analyst Name Role Phone Unavailable Primary Care Provider Unavailabl e Social History Tobacco Use Types Packs/Day Years Used Date Smoking Tobacco: Never Assessed Sex and Gender Information Value Date Recorded Sex Assigned at Male 05/08/2022 10:15 AM EDT Legal Sex Male 10:15 AM EDT Gender Identity Male 05/08/2022 10:15 AM EDT Sexual Orientation Straight 05/08/2022 10 :15 AM EDT Plan of Treatment Health Maintenance Due Date Last Done Comments CT Colonography 1955 Colonoscopy 1955 Colorectal Cancer Screening 1955 Depression Screening 1955 FIT DNA/Cologuard 1955 FIT 1955 FOBT 1955 Lipid Panel 1955 Sigmoidoscopy 1955 Alcohol/Substance Use Screening 1967 Tobacco Screening 1967 DTaP/Tdap/Td Vaccines (1 - Tdap) 1974 Pneumococcal Vaccine: 50+ Ye ars (1 of 1 - PCV) 2005 Zoster Vaccines (1 of 2) 2005 COVID-19 Vaccine ( - 2023-2 5 season) 2024 Influenza Vaccine (#1) 2024 RSV Patients and Pa tients Aged 60 years or older (1 - 1-dose 75+ series) 2030 HIB Vaccines Aged Out No longer eligi ble based on patient's age to complete this topic HPV Vaccines Aged Out No longer eligi ble based on patient's age to complete this topic Hepatitis A Vaccines Aged Out No long er eligible based on patient's age to complete this topic Hepatitis B Vaccines Aged Out No long er eligible based on patient's age to complete this topic IPV Vaccines Aged Out No longer eligi ble based on patient's age to complete this topic Meningococcal Vaccine Aged Out No phan jacob eligible based on patient's age to complete this topic RSV under 20 months Aged Out No longe r eligible based on patient's age to complete this topic Rotavirus Vaccines Aged Out No longer eligible based on patient's age to complete this topic
--- OUTSIDE RECORDS SUMMARY | 2024-09-15 15:43 | XMS_ITS ---
Author Organization [facility] Mara toro Acworth Address [address] [place] [address] Care Team Providers Care Inspector Crystal Name Role Phone Elba ZUÑIGA, Caitlyn Steward Primary Care Provider Un available Mahamed Ramos Unavailable [phone] REASON FOR VISIT inactive ins Encounters Encounter Location Date Provider Diagnosis [address] [address] 07/30/2024 Mahamed Ramos Plan Of Treatment Next Appt Details Provider Name:Mahamed Ramos , 10/21/2024 10:30:00 AM, [address] [facility], [place], [address], Progress Notes * GONZALORobertWaqar NDOB: (69 yo M)Acc No.[id number]:07/30/2024 Patient:?GONZALORobert LOPEZnancy Mcbride :1955???Age:69 Y???Sex:Male Address:[address] [place] [address], [place], [address] * true * Date:? Generated for Shellyi keyla/Jack/eTransmitting on:?09/15/2024 03:43 PM EDT
== END 2024-09-15 14:38 | disposition home or self-care (01) ==
PROVIDERS: PCP Internal Medicine; Visit Provider Nurse Practitioner Family
DX: G47.33 Obstructive sleep apnea (adult) (pediatric) (principal)
CPT/HCPCS: 99213

== ENCOUNTER → 2024-09-15 13:52 | Outpatient (BNVA) | payer MEDICARE, SELFPAY | PROVIDERS: PCP Internal Medicine; Visit Provider Nurse Practitioner Family | DX: G47.33 Obstructive sleep apnea (adult) (pediatric) (principal) | CPT/HCPCS: 99212 ==

== ENCOUNTER 2024-09-17 06:12 | Outpatient (REF) | payer OTHER, SELFPAY ==
--- OUTSIDE RECORDS SUMMARY | 2024-09-17 06:16 | XMS_ITS ---
Author [facility] Address [address] [facility] [address] Care Team Providers Care Dry Cleaner Name Role Phone Elba ZUÑIGA, Caitlyn Steward Primary Care Provider Un available Rachel Mahamed Unavailable [phone] Allergies No Known Allergies REASON FOR VISIT [...] Ordered Date Performed Result Body Sit e 59525-WUWODXG NAIL, 6 OR MORE 05/02/2024 N/A 30206-VBWM SKIN LESIONS, OVER 4 05/02/2024 N/A Encounters Encounter Location Date Provider Diagnosis [facility] [address] [address] 05/02/2024 Mahamed Ramos Type 2 diabetes mellitus [...] Treatment Pending Test Test Name Order Date 69714-MTMOVEZ NAIL, 6 OR MORE 05/02/2024 82908-GYCY SKIN LESIONS, OVER 4 05/02/20 24 Next Appt Details Follow Up: 2 Months, Reason: Provider Name:Mahamed Ramos , 10/21/2024 10:30:00 AM, [address] [place], [address], Procedure Notes * Category Sub-Category Detail Notes Debride Nail 6-10 Nail debridement Performance o f this nail treatment by a nonprofessional would put this patients foot and overall health at risk. Therefore, nail debridement was performed extensively to reduce/remove overall nail length, girth, thickness, subungual debris, and necrotic tissue, by manual and/or electrical means through the use of a nail nipper and/or dremel-type tool grinder set up operator gear, to a more viable healthy nail plate or bed tissue 6-10. Silver nitrate used for any petechial bleeding as necessary. Definitive antifungal treatment options have been reviewed and discussed with the patient. The patient chooses, no pharmaceutical tx - 04027 Keratoma Treatment Parring or Cutting o f Benign Hyperkeratotic Lesion(s) (-57) More than 4 Lesions - The Benign hyperkeratotic lesions, as described above were pared, and/or cut utilizing a sterile 15 blade, tissue nippers, and/or dremel - 16934 , Q8 Progress Notes * Waqar SÁNCHEZ NDOB: 5 (69 yo M)Acc No.[id number]:05/02/2024 Progress Note Patient:?TIGRERobertWaqar N Provider:?Mahamed Ramos DPM :1955???Age:68 Y???Sex:Male Srikanth e:05/02/2024 Address:[address] [place], [place] [id number] Pcp:Lee Charles Subjective: * Chief Complaints: * [...] to treatment,Improvement??? Plan: * Treatment: 2.?Tinea unguium?Procedure: 95745-MIOWDCV NAIL, 6 OR MORE * Procedures:?Debride Nail 6-10:?Nail debridement?Performance of this nail treatment by a nonprofessional would put this patients foot and overall health at risk. Therefore, nail debridement was performed extensively to reduce/remove overall nail length, girth, thickness, subungual debris, and necrotic tissue, by manual and/or electrical means through the use of a nail nipper and/or dremel-type tool grinder set up operator gear, to a more viable healthy nail plate or bed tissue 6-10. Silver nitrate used for any petechial bleeding as necessary. Definitive antifungal treatment options have been reviewed and discussed with the patient. The patient chooses, no pharmaceutical tx - 38369.?Keratoma Treatment:?Parring or Cutting of Benign Hyperkeratotic Lesion(s)?(-57) More than 4 Lesions - The Benign hyperkeratotic lesions, as described above were pared, and/or cut utilizing a sterile 15 blade, tissue nippers, and/or dremel - 39238 , Q8.? * Procedure Codes:?08965 DEBRI DE NAIL, 6 OR MORE, Modifiers: XS 96391 TRIM SKIN LESIONS, OVER 4, Modifiers: XS [...] Ramos DPM Date:?2023 Generated for Diana ramires/Jack/Lennie on:?09/17/2024 06:16 AM EDT History and Physical Notes * HPI [...]
--- OUTSIDE RECORDS SUMMARY | 2024-09-17 06:16 | XMS_ITS | Clinical Summary ---
Author Organization [facility] Address [address] [place] [address] Care Team Providers Care Store Facility Technician Name Role Phone Unavailable Primary Care Provider [...] complication, without long-term current use of insulin ([facility]/HCC) 11/18/2018 DX:Type 2 diabetes me llitus without complication, without long-term current use of insulin (HCC) Type 2 diabetes mellitus wit hout complication, without long-term current use of insulin ([facility]/HCC) 11/18/2018 DX:Type 2 diabetes me llitus without [...]
--- OUTSIDE RECORDS SUMMARY | 2024-09-17 06:17 | XMS_ITS ---
Author Organization [facility] cortez Donalds Address [address] [facility] [place] [address] Care Team Providers Care Emergency Planning And Response Manager Name Role Phone Elba ZUÑGIA, Caitlyn Steward Primary Care Provider Un available Mahamed Ramos Unavailable [phone] Allergies No Known Allergies REASON FOR VISIT [...] Ordered Date Performed Result Body Sit e 23607-MDREUFF NAIL, 6 OR MORE 07/25/2024 N/A 99859-Xmafokqk Plate 07/25/2024 N/A 41880-HDLI SKIN LESIONS, OVER 4 07/25/2024 N/A Encounters Encounter Location Date Provider Diagnosis [facility] [address] [address] 07/25/2024 Mahamed Ramos Type 2 diabetes mellitus [...] days Pending Test Test Name Order Date 33229-FIHWEOL NAIL, 6 OR MORE 07/25/2024 75840-Kqosutua Plate 07/25/2024 72707-XMSK SKIN LESIONS, OVER 4 07/25/19 25 Next Appt Details Follow Up: 2 Months, Reason: Provider Name:Mahamed Ramos , 10/21/2024 10:30:00 AM, [address] [place] [address], [address], Procedure Notes * Category Sub-Category Detail Notes [...] Motrin was recommended for pain or discomfort (69032), DIABETES: Pt was advised as to the [...] use of a nail nipper and/or dremel-type surface grinder tender, to a more viable healthy nail plate [...] to maintain effectiveness in symptomatic relief - 86854 Keratoma Treatment Parring or Cutting o f [...] instrumentation by the physician of record - 36603, Q9 Progress Notes * Waqar SÁNCHEZ NDOB: (69 yo M)Acc No.[id number]:07/25/2024 Progress Note Patient:?Waqar SÁNCHEZ N Provider:?Mahamed Ramos DPM :1955???Age:69 Y???Sex:Male Srikanth e:07/25/2024 Address:[address] [place], [place] [id number] Pcp:Lee Charles Subjective: * Chief Complaints: * [...] management (4)??? Plan: * Treatment: 2.?Tinea unguium?Procedure: 14439-PKFEXUT NAIL, 6 OR MORE 3.?Ingrown nail?Procedure: 82599-Rsgirmpy Plate 4.?Tinea pedis of both feet? Start [...] use of a nail nipper and/or dremel-type surface grinder tender, to a more viable healthy nail plate [...] to maintain effectiveness in symptomatic relief - 82924.?Keratoma Treatment:?Parring or Cutting of Benign Hyperkeratotic Lesion(s)?(-57) [...] instrumentation by the physician of record - 08700, Q9.?Nail Avulsion:?Location?Bilateral nail borders,?T5.?Anesthesia?3cc of 1 percent [...] Motrin was recommended for pain or discomfort (64982), DIABETES: Pt was advised as to the risk of delayed or nonhealing due to diabetes. Pt is to call the office with any questions, concerns, or complications.? * Procedure Codes:?56105 DEBRI DE NAIL, 6 OR MORE, Modifiers: XS 20954 Avulsion Plate, Modifiers: XS , [id number] TRIM SKIN LESIONS, OVER 4, Modifiers: XS [...] Ramos DPM Date:?2024 Generated for Diana ramires/Jack/Laurenitting on:?09/17/2024 06:16 AM EDT History and Physical [...]
--- OUTSIDE RECORDS SUMMARY | 2024-09-17 06:17 | XMS_ITS | Clinical Summary ---
Author Organization [employer] Address [address] [facility] 7t [place] [address] Care Team Providers Care Knife Finisher Name Role Phone Unavailable Primary Care Provider [...]
--- OUTSIDE RECORDS SUMMARY | 2024-09-17 06:17 | XMS_ITS | Patient Health Record ---
Author Organization [facility] Address [address] [place] [address] Care Team Providers Care Transportation Logistics Internship Name Role Phone Elba ZUÑIGA, Caitlyn Steward Primary Care Provider Un available Mahamed Ramos Unavailable [phone] Allergies No Known Allergies Results Component Value [...] Problem Acquired hammer toe of right foot (8041806573476 105) Other hammer toe(s) (acquired), right foot (M20.41) Active confirmed Response to treatment,I mprovement Problem Type 2 diabetes mellitus with peripheral angiopathy (691307367) Type 2 diabetes mellitus with diabetic peripheral angiopathy without gangrene (E11.51) Active confirmed Q7(A), Q8(2B), Q9(1B,2C) Problem Acquired hammer toe of left foot (5893097555572 103) Other hammer toe(s) (acquired), left foot (M20.42) Active confirmed Response to treatment,I mprovement Vital Signs Blood pressure diastolic 81 mm Hg 07/25/2024 Height 5ft5in in 07/25/2024 Blood pressure systolic 132 mm Hg 07/25/2024 Weight 246 lbs 07/25/2024 BMI 40.93 kg/m2 07/25/2024 Procedures Procedure Date Ordered Date Performed Result Body Sit e 11136-ADZYRMR NAIL, 6 OR MORE 01/22/2024 N/A 57101-LEGT SKIN LESIONS, OVER 4 01/22/2024 N/A 84777-FJJAUDJ NAIL, 6 OR MORE 05/02/2024 N/A 30154-GFCM SKIN LESIONS, OVER 4 05/02/2024 N/A 02902-YLQUNXW NAIL, 6 OR MORE 07/25/2024 N/A 62269-Hyzvkysb Plate 07/25/2024 N/A 95082-NNWA SKIN LESIONS, OVER 4 07/25/2024 N/A Encounters Encounter Location Date Provider Diagnosis [facility] [place] [address] 01/22/2024 Mahamed Ramos Type 2 diabetes mellitus with diabetic peripheral angiopathy without gangrene E11.51 ; Tinea unguium B35.1 ; Pain in right toe(s) M79.674 ; Pain in left toe(s) M79.675 ; Other hammer toe(s) (acquired), left foot M20.42 and Other hammer toe(s) (acquired), right foot M20.[address] [address] 05/02/2024 Mahamed Ramos Type 2 diabetes mellitus with diabetic peripheral angiopathy without gangrene E11.51 ; Tinea unguium B35.1 ; Pain in right toe(s) M79.674 ; Pain in left toe(s) M79.675 ; Other hammer toe(s) (acquired), right foot M20.41 and Other hammer toe(s) (acquired), left foot M20.[address] [address] 07/25/2024 Mahamed Ramos Type 2 diabetes mellitus with diabetic peripheral angiopathy without gangrene E11.51 ; Tinea unguium B35.1 ; Pain in right toe(s) M79.674 ; Pain in left toe(s) M79.675 ; Ingrown nail L60.0 and Tinea pedis of both feet B35.[address] [address] 12/27/2023 Mahamedsiva Ramos [address] [address] 01/22/2024 Mahamed Ramos [address] [address] 04/29/2024 Mahamedsiva Ramos [address] [address] 07/30/2024 Mahamed Ramos Assessments Encounter Date Diagnosis [...] Treatment Pending Test Test Name Order Date 59183-MMDXBRW NAIL, 6 OR MORE 01/22/2024 31451-FLWEFCS NAIL, 6 OR MORE 05/02/2024 51827-HVKUYFR NAIL, 6 OR MORE 07/25/2024 73466-Clobfueu Plate 07/25/2024 53418-MTYM SKIN LESIONS, OVER 4 07/25/19 66505-RMQZ SKIN LESIONS, OVER 4 05/02/20 86755-FTWH SKIN LESIONS, OVER 4 01/22/20 Next Appt Details Provider Name:Mahamed Will Rachel , 10/21/2024 10:30:00 AM, [address] [facility], [place], [address], Insurance Providers Payer Name Payer Address Payer Phone Subscriber Number Group Number Insured Name Patient Relationship to Insured Coverage Start Date Coverage End Date Medicare National [employer] [address] [place] [address] [id number] Waqar Sánchez Self - patient is the insured Medical (General) History Medical History History ICD Code Depression Diabetic Headaches/Migraines High blood pressure sinusitis Measles Mumps Chicken pox Surgical History Surgery Date(Month/Year) hernia abdominal 2006
--- OUTSIDE RECORDS SUMMARY | 2024-09-17 06:17 | XMS_ITS | Encounter Summary ---
Author Organization [facility] Address [address] [place] [address] [address] [place] [address] Care Team Providers Care Solid Waste Disposal Manager Name Role Phone Unavailable Primary Care Provider Unavailabl e Encounter Details Date Type Department Care Team (Latest Contact Info) Description 09/07/2020 Abstract [facility] CONVERSIONS Dental, Provider, DDS Social History Tobacco [...]
--- OUTSIDE RECORDS SUMMARY | 2024-09-17 06:17 | XMS_ITS ---
Author Organization [facility] Mara toro Lefor Address [address] [place] [address] Care Team Providers Care Senior Director Finance Name Role Phone Elba ZUÑIGA, Caitlyn Steward Primary Care Provider Un available Mahamed Ramos Unavailable [phone] REASON FOR VISIT inactive ins Encounters Encounter Location Date Provider Diagnosis [address] [address] 07/30/2024 Mahamed Ramos Plan Of Treatment Next Appt Details Provider Name:Mahamed Ramos , 10/21/2024 10:30:00 AM, [address] [facility], [place], [address], Progress Notes * GONZALO Waqar NDOB: (69 yo M)Acc No.[id number]:07/30/2024 Patient:?GONZAOLRobert LOPEZnancy Mcbride :1955???Age:69 Y???Sex:Male Address:[address] [place] [address], [place], [address] * true * Date:? Generated for Shellyi keyla/Jack/eTransmitting on:?09/17/2024 06:16 AM EDT
[2024-09-17 10:46] LABS: Alanine Aminotransferase 39 U/L (0-40); Anion Gap 12 (12-20); Aspartate Amino Transferase 22 U/L (5-37); Blood Urea Nitrogen 21 mg/dL (9-16); Calcium 9.8 mg/dL (8.4-10.2); Carbon Dioxide 29 mmol/L (22-29); Chloride 102 mmol/L (96-108); Cholesterol 133 mg/dL (<200); Estimated Glomerular Filt Rate > 60; Glucose Fasting 157 mg/dL (60-99); HDL Cholesterol 36 mg/dL (>40); LDL Cholesterol Calculated 69 mg/dL (<100); Sodium 139 mmol/L (135-145); Triglycerides 144 mg/dL (<150)
[2024-09-17 11:05] LABS: Vitamin D 25-OH Total 52.6 ng/mL (>30)
[2024-09-17 11:36] LABS: Creatinine Urine 139.84 mg/dL
[2024-09-17 11:48] LABS: Microalbum/Creatinine Ratio Ur 878.1 ug/mg cr (<30)
== END 2024-09-17 06:13 | disposition home or self-care (01) ==
LOC: HO.HMGCLDS 06:12
PROVIDERS: PCP Internal Medicine; Visit Provider Internal Medicine
DX: E11.29 Type 2 diabetes mellitus with other diabetic kidney complication (principal); E78.00 Pure hypercholesterolemia, unspecified; I10 Essential (primary) hypertension
CPT/HCPCS: 36415; 80048; 80061; 82043; 82306; 82570; 84450; 84460

== ENCOUNTER 2024-10-01 09:11 | Outpatient (AMB) | payer MEDICARE, MEDICAID, SELFPAY ==
[2024-10-01 10:00] VITALS: BP 150/80; PULSE 74; RESP 16; TEMP 36.7; O2SAT 94; BMI 39.6
--- NOTE | 2024-10-01 10:00 | A.OFFPC_ITS ---
Vital Signs 10/01/24 10:00 Height 5 ft 5 in Weight 238 lb BMI 39.6 BP 150/80 H Blood Pressure Location Rt brachial Position Sitting Respiration 16 Pulse 74 Pulse Source Pulse Oximeter Temp 98.1 F Temp Source Oral Pulse Oximetry (%) 94 Oxygen Delivery Method Room Air Intake Visit Reasons: 4m follow up Intake Note: Pt is here today for his 4mo. f/u Allergies Seasonal Allergies Allergy (Mild, Verified 10/01/24 10:29) sneezing, runny nose Medication List - Last Reconciled 10/01/24 by Caitlyn Arreola MD atorvastatin 20 mg PO Q2D 90 days blood sugar diagnostic ([employer] Ultra Test strips) Test blood sugar 3 times per day lancets test blood sugar 3 times per day lisinopril-hydrochlorothiazide 20-12.5 mg 1 tab PO DAILY metformin 500 mg PO BID 3 months metoprolol tartrate 25 mg PO BID 90 days semaglutide (Ozempic) 1 mg (0.75 mL) subcut QWEEK venlafaxine ER 75 mg PO DAILY Tobacco use date assessed: 10/01/24 Fall risk assessment: No Falls in past year Last assessed Fall Risk: 10/01/24 Dental Screening Dental Screen Date: 10/01/24 Did you have a dental visit in the last 12 months?: Yes Did you have a dental problem in the last 6 months where you did not have access to dental care?: No Was dental information given to patient?: Patient has dentist HPI 4m follow up HPI Details 69 year-old male here today for follow-u p on his diabetes mellitus and hyperlipidemia. He is currently on metformin 500 mg 1 tablet twice a day , Ozempic 1 mg once a week, and continued on 20 mg of atorvastatin every other day. Patient states that he feels better on Ozempic but blood sugar still running high admits to not being compliant with diet over the last several months and has been sedentary most of the time he is overdue to get his diabetes retinopathy screening, [facility] [place] Medical History (Updated 10/01/24 @ 10:43 by Caitlyn Arreola MD) Depression, major, recurrent, in remission Diabetic neuropathy associated with diabetes mellitus due to underlying condition Plantar callus Anemia Type 2 diabetes mellitus with other diabetic kidney complication Lumbago History of nephrolithiasis SYLVIA on CPAP Type 2 diabetes mellitus without complication, with no history of insulin use Morbid obesity Abdominal mass, RUQ (right upper quadrant) Surgical History H/O ventral hernia repair Family History Other No significant family history Social History Housing: Apartment Alcohol intake: never Patient Tobacco Use Status: Never used Tobacco e-Cigarette/Vaping Use: Never Used Current occupational status: disabled Cognitive needs: No Hearing needs: No Vision needs: No Questionnaire PHQ-9 Over the last 2 weeks, how often have you been bothered by any of the following problems? 1. Little interest or pleasure in doing things: not at all 2. Feeling down, depressed, or hopeless: not at all 3. Trouble falling or staying asleep, or sleeping too much: not at all 4. Feeling tired or having little energy: not at all 5. Poor appetite or overeating: not at all 6. Feeling bad about yourself - or that you are a failure or have let yourself or your family down: not at all 7. Trouble concentrating on things, such as reading the newspaper or watching television: not at all 8. Moving or speaking so slowly that other people could have noticed. Or the opposite - being so fidgety or restless that you have been moving around a lot more than usual: not at all 9. Thoughts that you would be better off or of hurting yourself in some way: not at all Total score: 0 Depression Screening Interpretation: Negative Depression Screening Done: Yes 27256 - PHQ-9 Billing: Yes Source: Developed by Drs. Asad Mon, Siobhan Carrillo, Jalil Grijalva and colleagues, with an educational billy from [employer]. Thrive Questionnaire Date Thrive assessed: 10/01/24 I am a: Patient What is your living situation today?: I have a steady place to live Within the past 12 months, did the food you bought not last and you didn't have the money to get more?: Never true Within the past 12 months, did you worry whether your food would run out before you got money to buy more?: Never true Do you have trouble paying for medicines?: No Do you have trouble getting transportation to medical appointments?: No Do you have trouble paying your heating and electricity bill?: No Do you have trouble taking care of your child, family member or friend?: No Do you have trouble with day-to-day activities such as bathing, preparing meals, shopping, managing finances, etc.?: No Are you currently unemployed and looking for a job?: No Are you interested in more education?: No Currently or been in a relationship where the following occur: I choose not to answer THRIVE Score: 0 AUDIT C Alcohol Use Questionnaire (AUDIT-C) 1. How often do you have a drink containing alcohol?: Never Total Score: 0 NINFA-7 AMB Questionnaire NINFA-7 Date NINFA - 7 assessed: 10/01/24 Feeling nervous, anxious, or on edge: 0 = Not at all Not being able to stop or control worryin = Not at all Worrying too much about different things: 0 = Not at all Trouble relaxin = Not at all Being so restless that it is hard to sit still: 0 = Not at all Becoming easily annoyed or irritable: 0 = Not at all Feeling afraid as if something awful might happen: 0 = Not at all Total NINFA-7 score (0-4 normal; 5-9 mild; 10-14 moderate; 15-21 severe): 0 Source: Developed by Drs. Asad Mon, Siobhan Carrillo, Jalil Grijalva and colleagues, with an educational billy from [employer]. NINFA-7 Assessment Billing NINFA-7 Assessment Tool: NINFA-7 Assessment 16263 Review of Systems Const Denies body aches, Denies fever(s), Denies headache(s), Denies weakness and Reports weight loss Eyes Details: [facility] at [address] [place] [address] [address] in [facility], no retinopathy, beginning glaucoma Denies change in vision ENT Denies dizziness, Denies headache(s), Denies nasal congestion, Denies nasal discharge and Denies sore throat Card Denies chest pain, Denies lightheadedness and Denies dyspnea Resp Denies chest congestion, Denies cough and Denies dyspnea GI Denies abdominal pain, Denies change in bowel habits and Denies heartburn Denies hematuria, Denies difficulty urinating and Denies dysuria Musc Reports no additional complaints Skin/Breast Denies lesions and Denies rash Neuro Denies dizziness, Denies headache(s) and Denies weakness Psych Reports no additional complaints Endo Reports no additional complaints Kevan/Lymph Denies easy bleeding and Denies easy bruising Aller/Immun Reports no additional complaints Physical exam (Primary Care) Vital Signs: Last Vital Signs Temp 98.1 F 10/01/24 10:00 Pulse 74 10/01/24 10:00 Resp 16 10/01/24 10:00 BP 150/80 H 10/01/24 10:00 Pulse Ox 94 10/01/24 10:00 Oxygen Delivery Method Room Air 10/01/24 10:00 BMI result Body Mass Index 39.6 Tobacco/Smoking Status: Tobacco use Status Tobacco use date assessed 10/01/24 10/01/24 10:04 Patient Tobacco Use Status Never used Tobacco 10/01/24 10:01 e-Cigarette/Vaping Use Never Used 10/01/24 10:01 PHQ-9: PHQ-9 Score PHQ-9: Total score 0 10/01/24 10:10 Depression Screening Interpretation: Negative Thrive Assessment: Date of Thrive Assessment Date Thrive assessed 10/01/24 10/01/24 10:01 Currently or been in a relationship where the following occur: I choose not to answer Const General: no acute distress and alert Nutritional Appearance: obese morbidly obese Orientation/consciousness: patient oriented x3 HENMT Ears: external ears normal General nose exam: Normal external nose present and No nasal discharge present Mouth: oropharynx normal and moist mucous membranes Eyes General: appearance normal, both eyes and all related structures Neck Neck: Yes full ROM, Yes no lymphadenopathy and Yes supple Resp Effort & Inspection: normal respiratory effort and able to speak in complete sentences Auscultation: clear to auscultation bilaterally Cardio Rate: regular rate Rhythm: regular rhythm Heart sounds: S1 normal heart sound present and S2 normal heart sound present Peripheral pulses: posterior tibial pulses present and dorsalis pedis present GI Palpation (GI): Soft to palpation, nontender and no masses Auscultation: normal bowel sounds Male General Exam: Yes normal external exam Back/Spine/Pelvis Back: No back tenderness Skin General skin exam: no rashes or lesions noted Neuro General: patient oriented x3, moves all extremities, no focal motor deficits and CN's II-XI intact bilaterally Extrem General: Yes full ROM, Yes no joint enlargement, Yes no pedal edema, Yes no calf tenderness and Yes normal gait Psych Appearance: grossly normal Mental Status: mental status grossly normal Speech and movement: Normal speech and movement present Affect: normal affect Attitude: cooperative Thought process: Normal thought process present Thought content: Normal thought content present Results AMB Hemoglobin A1c AMB Hemoglobin A1c 7.9 % Last Edit by Lorri Worthington CMA on 10/01/24 10:21 Results Reviewed Results Reviewed: Laboratory Last Values Hgb A1c (Clinic) 7.9 % (4.0-6.0) H 10/01/24 10:01 Name: Waqar Sánchez Age/Sex: 69/M : 1955 Unit#: [id number] Attend Dr: Caitlyn Arreola MD Re09/17/24 Status: DEP REF Location: [facility] Disch: SPEC : [id number] AUGUSTA: 09/17/24 STATUS: COMP REQ : [id number] RECD: 09/17/24-[address]: Caitlyn Arreola MD COMP: 09/17/24 ENTERED: 09/17/[address]: ORDERED: Met Prof Fast, AST, ALT, Lipid Panel, Vitamin D 25-OH Test Result Flag Reference Sodium 139 135-145 mmol/L Potassium 4.0 3.3-5.1 mmol/L CL 102 96-108 mmol/L CO2 29 22-29 mmol/L Gap 12 12-20 BUN 21 H 9-16 mg/dL Creat 0.85 0.5-1.4 mg/dL eGFR > 60 Chronic Kidney Disease: Estimated GFR < 60 mL/min/1.73m2 Severe Kidney Disease: Estimated GFR < 15 mL/min/1.73m2 FBS 157 H 60-99 mg/dL A fasting glucose of 126 mg/dl or greater on more than one occasion is considered diagnostic of diabetes. CA 9.8 8.4-10.2 mg/dL AST (GOT) 22 5-37 U/L ALT (GPT) 39 0-40 U/L Triglyceride 144 <150 mg/dL Desirable Triglyceride: less than 150 mg/dL Borderline High Triglyceride 150-199 mg/dL High Triglyceride: 200-499 mg/dL Very High Triglyceride: greater than or equal to 5OO mg/dL Cholesterol 133 <200 mg/dL Desirable Cholesterol: less than 200 mg/dL Borderline High Cholesterol: 200-239 mg/dL High Cholesterol: greater than 239 mg/dL LDL Calculated 69 <100 mg/dL Desirable LDL: less than 100 mg/dL Near Optimal/Above Optimal LDL: 110-129 mg/dL Borderline High LDL: 130-159 mg/dL High LDL: 160-189 mg/dL Very High LDL: greater than or equal to 190 mg/dL HDL 36 L >40 mg/dL Desirable HDL: greater than 40 mg/dL Note: This HDL assay may give artificially low results in patients with liver disease. Vitamin D 25-OH 52.6 >30 ng/mL Health Based Reference Values* < 20 ng/mL Deficient 20-30 ng/mL Insufficient > 30 ng/mL Sufficient Laboratory Tests 09/17/24 10/01/24 06:21 10:01 Hgb A1c (Clinic) 7.9 H Urine Creatinine 139.84 Urine Microalbumin 1228.0 Microalb/Creat Ratio 878.1 H Coding Level of Care Code Est Pt Level 5 (94602) Complex EM visit Add On G2211 Diagnoses Primary hypertension I10 Hypertension type: primary hypertension Pure hypercholesterolemia E78.00 Hyperlipidemia type: pure hypercholesterolemia Type 2 diabetes mellitus with other diabetic kidney complication E11.29 Diabetic neuropathy associated with diabetes mellitus due to underlying condition E08.40 Depression, major, recurrent, in remission F33.40 Additional Codes PHQ-9 - 94599 - PHQ-9 Billing: Yes ([id number]) NINFA-7 Assessment Billing - NINFA-7 Assessment Tool: NINFA-7 Assessment 16836 ([id number]) Assessment & Plan Assessment & Plan (1) Hypertension: Code(s): I10 - Essential (primary) hypertension Category: Medical Qualifiers: Hypertension type: primary hypertension Qualified Code(s): I10 - Essential (primary) hypertension Plan: Blood pressure not at goal of less than 130/80. Will continue on current dose of losartan HCTZ and metoprolol tartrate 25 mg twice a day. Reinforced importance of following a low sodium diet, getting regular exercise, and lowering stress levels. Ozempic dose increased to 2 mg weekly, which should also help lower his blood pressure readings. Will see him back for follow-up in January 2020 (2) Hyperlipidemia: Code(s): E78.5 - Hyperlipidemia, unspecified Category: Medical Qualifiers: Hyperlipidemia type: pure hypercholesterolemia Qualified Code(s): E78. 00 - Pure hypercholesterolemia, unspecified Plan: Reviewed recent fasting lipid profile with patient with levels within normal limit . Continue atorvastatin 20 mg per tablet taken 1 tablet every other day. , in addition to adherence to low-cholesterol diet and regular exercise, at least 30 minutes 3 to 4 times a week. Advised patient to make healthy food choices, eat more fruits, vegetables, whole grains, wild caught fish and low- fat dairy. Limit amount of meat and fried or fatty food products, as well as processed foods and fast foods. Follow-up scheduled with repeat fasting lipid panel in January 2025 (3) Type 2 diabetes mellitus with other diabetic kidney complication: Code(s): E11.29 - Type 2 diabetes mellitus with other diabetic kidney complication Category: Medical Plan: Hemoglobin A1c elevated on today's visit, continued on metformin 500 mg twice a day, increased Ozempic dose to 2 mg injected weekly, reinforced importance of following recommended diet and getting regular exercise will check another A1c level in January 2025. Reminded to get another an eye appointment scheduled for diabetic retinopathy screening with [facility] (4) Diabetic neuropathy associated with diabetes mellitus due to underlying condition: Code(s): E08.40 - Diabetes mellitus due to underlying condition with diabetic neuropathy, unspecified Category: Medical Plan: Hemoglobin A1c elevated on today's visit, continued on metformin 500 mg twice a day, increased Ozempic dose to 2 mg injected weekly, reinforced importance of following recommended diet and getting regular exercise will check another A1c level in January 2025 (5) Depression, major, recurrent, in remission: Code(s): F33.40 - Major depressive disorder, recurrent, in remission, unspecified Category: Medical Plan: Doing well on venlafaxine ER 75 mg daily, refill sent Orders: Orders AMB Hemoglobin A1c Today E11.29 - Type 2 diabetes mellitus with other diabetic kidney complication Medications: New Ozempic (semaglutide) 2 mg (0.75 mL) subcut QWEEK 30 days 3 mL 5RF NS E08.40 - Diabetes mellitus due to underlying condition with diabetic neuropathy, unspecified, E11.29 - Type 2 diabetes mellitus with other diabetic kidney complication, E78.00 - Pure hypercholesterolemia, unspecified, I10 - Essential (primary) hypertension sildenafil (Viagra) administer 30 minutes to 4 hours before activity 50 mg PO DAILY PRN 10 tabs 0RF sexual activity Refilled lisinopril-hydrochlorothiazide 20-12.5 mg 1 tab PO DAILY 90 tabs 4RF I10 - Essential (primary) hypertension metformin 500 mg PO BID 3 months 180 tabs 4RF E11.9 - Type 2 diabetes mellitus without complications metoprolol tartrate 25 mg PO BID 90 days 180 tabs 4RF Discontinued semaglutide (Ozempic) Discontinued Reason: Doctor's Order 1 mg (0.75 mL) subcut QWEEK 3 mL 3RF E08.40 - Diabetes mellitus due to underlying condition with diabetic neuropathy, unspecified, E11.29 - Type 2 diabetes mellitus with other diabetic kidney complication, E66.01 - Morbid (severe) obesity due to excess calories, E78.00 - Pure hypercholesterolemia, unspecified, I10 - Essential (primary) hypertension
== END 2024-10-01 11:42 | disposition home or self-care (01) ==
LOC: HO.HMCC 09:12
PROVIDERS: PCP Internal Medicine; Visit Provider Internal Medicine
DX: E11.29 Type 2 diabetes mellitus with other diabetic kidney complication (principal); F33.40 Major depressive disorder, recurrent, in remission, unspecified; I10 Essential (primary) hypertension; E78.00 Pure hypercholesterolemia, unspecified

== ENCOUNTER → 2024-10-01 09:11 | Outpatient (BNVA) | payer MEDICARE, SELFPAY | PROVIDERS: PCP Internal Medicine; Visit Provider Internal Medicine | DX: I10 Essential (primary) hypertension (principal); E78.00 Pure hypercholesterolemia, unspecified; E11.29 Type 2 diabetes mellitus with other diabetic kidney complication; F33.40 Major depressive disorder, recurrent, in remission, unspecified | CPT/HCPCS: 83036; 96127; 99212 ==

== ENCOUNTER 2025-01-19 06:04 | Outpatient (REF) | payer OTHER, SELFPAY ==
--- OUTSIDE RECORDS SUMMARY | 2024-10-21 06:30 | XMS_ITS ---
Author Organization [facility] Address [address] [place] [address] Care Team Providers Care Powder Worker Tnt Name Role Phone Elba ZUÑIGA, Caitlyn Steward Primary Care Provider Un available Mahamed Ramos Unavailable [phone] Encounters Encounter Location Date Provider Diagnosis [facility] [address] [place] [address] 10/21/2024 Mahamed Ramos Plan Of Treatment No Information Progress Notes * Waqar SÁNCHEZ NDOB: (69 yo M)Acc No.[id number]:10/21/2024 Progress Note Patient: Waqar REID Provider: Nae Ramos DPM :1955 A ge:69 Y S ex:Male Date:10/21/2024 Address:[address] [place] [address], [facility] Pcp:Lee Charles Subjective: * Chief Complaints: * [...] 0 10/21/2024 Generated for Printi ng/Fasbg/eTransmitting on: 01/19/2025 06:07 AM EDT
--- OUTSIDE RECORDS SUMMARY | 2025-01-19 06:07 | XMS_ITS | Clinical Summary ---
[facility] Organization [facility] Address [address] [place] [address] Care Team Providers Care Pusher Operator Name Role Phone Unavailable Primary Care Provider [...] complication, without long-term current use of insulin (CMS/[facility] V24, CMS/[facility] V28) 11/18/2018 DX:Type 2 diabetes mellitus without complication, without long-term current use of insulin (HCC) Type 2 diabetes mellitus wit hout complication, without long-term current use of insulin (CMS/[facility] V24, CMS/[facility] V28) 11/18/2018 DX:Type 2 diabetes mellitus without complication, without long-term current use of [...] - Risk 3-dose series) 2015 RSV Immunization Adult Patients (1 - Risk 60-74 years 1-dose series) [...] Annual BMP Blood Test 06/24/2022 COVID-19 Vaccine ( season) 2024 09/19/2020 Influenza Vaccine (#1) 2025 0, 04/26/2019, 03/22/2018, Additional history exists HIB [...] age to complete this topic Meningococcal B Vaccine Aged Out No l onger eligible based on patient's age to complete this topic RSV Immunization Patients Under 20 months Aged Out No longer eligible based on patient's age to complete this topic Varicella Vaccines Aged Out No longer eligible based on patient's age to complete this topic
--- OUTSIDE RECORDS SUMMARY | 2025-01-19 06:08 | XMS_ITS | Clinical Summary ---
Author Organization [facility] [employer] [facility] Address [address] [facility] [address] [place] [address] Care Team Providers Care Supervisor [employer] Name Role Phone Unavailable Primary Care Provider [...] 2023-2 5 season) 2024 Influenza Vaccine (#1) 2025 RSV Patients and Pa tients Aged 60 [...]
[2025-01-19 11:00] LABS: Hemoglobin A1C 284.3975 umol/L; Total Hemoglobin (HGBA1C) 3958.6092 umol/L
[2025-01-19 11:27] LABS: Alanine Aminotransferase 36 U/L (0-40); Anion Gap 14 (12-20); Aspartate Amino Transferase 27 U/L (5-37); Blood Urea Nitrogen 22 mg/dL (9-16); Calcium 9.7 mg/dL (8.4-10.2); Carbon Dioxide 29 mmol/L (22-29); Chloride 102 mmol/L (96-108); Cholesterol 123 mg/dL (<200); Estimated Glomerular Filt Rate > 60; HDL Cholesterol 33 mg/dL (>40); Potassium 4.1 mmol/L (3.3-5.1); Sodium 141 mmol/L (135-145); Triglycerides 155 mg/dL (<150)
[2025-01-19 11:29] LABS: PSA,Total (Free>4and<10) 0.60 ng/mL (0.00-4.00)
== END 2025-01-19 06:05 | disposition home or self-care (01) ==
LOC: HO.HMGCLDS 06:04
PROVIDERS: PCP Internal Medicine; Visit Provider Internal Medicine
DX: Z12.5 Encounter for screening for malignant neoplasm of prostate (principal); E11.29 Type 2 diabetes mellitus with other diabetic kidney complication; E66.01 Morbid (severe) obesity due to excess calories; F33.42 Major depressive disorder, recurrent, in full remission; E78.00 Pure hypercholesterolemia, unspecified; E11.40 Type 2 diabetes mellitus with diabetic neuropathy, unspecified; I10 Essential (primary) hypertension
CPT/HCPCS: 36415; 80048; 80061; 82306; 83036; 84153; 84443; 84450; 84460

== ENCOUNTER 2025-02-02 12:52 | Outpatient (AMB) | payer MEDICARE, MEDICAID, SELFPAY ==
--- OUTSIDE RECORDS SUMMARY | 2024-10-21 06:30 | XMS_ITS ---
Author Organization [facility] Address [address] [place] [address] Care Team Providers Care Underpresser Hand Name Role Phone Elba ZUÑIGA, Caitlyn Steward Primary Care Provider Un available Mahamed Ramos Unavailable [phone] Encounters Encounter Location Date Provider Diagnosis [facility] [address] [place] [address] 10/21/2024 Mahamed Ramos Plan Of Treatment No Information Progress Notes * Waqar SÁNCHEZ NDOB: (69 yo M)Acc No.[id number]:10/21/2024 Progress Note Patient: Waqar REID Provider: Nae Ramos DPM :1955 A ge:69 Y S ex:Male Date:10/21/2024 Address:[address] [place] [address], [facility] Pcp:Lee Charles Subjective: * Chief Complaints: * * Medical History: Objective: * Vitals: Assessment: Plan: * Treatment: * Images: * The named appointment provid er may or may not be the originator of this progress note, and it is not deemed complete until electronically signed by the appointment provider. Sign off status: Pending * Provider: Nae Ramos DPM Date: 10/21/2024 Generated for Printi ng/Faxing/eTransmitting on: 02/02/2025 01:32 PM EDT
[2025-02-02 12:54] VITALS: BP 142/80; PULSE 85; TEMP 36.7; O2SAT 95; BMI 39.4
--- NOTE | 2025-02-02 12:54 | A.OFFPC_ITS ---
Vital Signs 02/02/25 12:54 Height 5 ft 5 in Weight 237 lb BMI 39.4 BP 142/80 H Blood Pressure Location Lt brachial Position Sitting Pulse 85 Pulse Source Pulse Oximeter Temp 98.0 F Temp Source Oral Pulse Oximetry (%) 95 Intake Visit Reasons: 4m follow up Allergies Seasonal Allergies Allergy (Mild, Verified 02/02/25 15:52) sneezing, runny nose Medication List - Last Reconciled 02/02/25 by Caitlyn Arreola MD atorvastatin 20 mg PO Q2D 90 days blood sugar diagnostic ([employer] Ultra Test strips) Test blood sugar 3 times per day cholecalciferol (vitamin D3) 50 mcg PO DAILY lancets test blood sugar 3 times per day lisinopril-hydrochlorothiazide 20-12.5 mg 1 tab PO DAILY metformin 500 mg PO BID 3 months metoprolol tartrate 25 mg PO BID 90 days Ozempic (semaglutide) 2 mg (0.75 mL) subcut QWEEK 30 days NS sildenafil (Viagra) 50 mg PO DAILY PRN venlafaxine ER 75 mg PO DAILY Tobacco use date assessed: 10/01/24 Fall risk assessment: No Falls in past year Last assessed Fall Risk: 02/02/25 Dental Screening Dental Screen Date: 10/01/24 HPI 4m follow up HPI Details - T 69-year-old male with Type 2 Diabete s Mellitus , hypertension and dyslipidemia, here today for follow-up.. - currently on Ozempic at 2 mg injected once a week but reports no weight loss over the past six months, nor has he noticed any decrease in his appetite or improvement in his diabetes control, current hemoglobin A1c is at 8.7%. Previously was on [employer] which he states worked better controlling his blood glucose levels. Unfortunately he always keeps running out of his medicine as they are out of stock most of the time. He is also taking metformin 500 mg 1 tablet twice a day. Admits to not being fully compliant with diet but has been walking regularly for exercise. - The patient is currently taking atorva statin for hyperlipidemia , and is on lisinopril HCTZ 20-12.5 mg in the morning and metoprolol tartrate 25 mg taken 1 tablet twice a day for hypertension [facility] Medical History (Updated 02/02/25 @ 16:02 by Caitlyn Arreola MD) Depression, major, recurrent, in remission Diabetic neuropathy associated with diabetes mellitus due to underlying condition Plantar callus Anemia Type 2 diabetes mellitus with other diabetic kidney complication Lumbago History of nephrolithiasis SYLVIA on CPAP Type 2 diabetes mellitus without complication, with no history of insulin use Morbid obesity Surgical History H/O ventral hernia repair Family History Other No significant family history Social History Housing: Apartment Alcohol intake: never Patient Tobacco Use Status: Never used Tobacco e-Cigarette/Vaping Use: Never Used Current occupational status: disabled Cognitive needs: No Hearing needs: No Vision needs: No Questionnaire PHQ-9 Over the last 2 weeks, how often have you been bothered by any of the following problems? 1. Little interest or pleasure in doing things: nearly every day 2. Feeling down, depressed, or hopeless: not at all 3. Trouble falling or staying asleep, or sleeping too much: not at all 4. Feeling tired or having little energy: not at all 5. Poor appetite or overeating: not at all 6. Feeling bad about yourself - or that you are a failure or have let yourself or your family down: not at all 7. Trouble concentrating on things, such as reading the newspaper or watching television: not at all 8. Moving or speaking so slowly that other people could have noticed. Or the opposite - being so fidgety or restless that you have been moving around a lot more than usual: not at all 9. Thoughts that you would be better off or of hurting yourself in some way: not at all Total score: 3 Depression Screening Interpretation: Negative Depression Screening Done: Yes 30113 - PHQ-9 Billing: Yes Source: Developed by Drs. Asad Mon, Siobhan Carrillo, Jalil Grijalva and colleagues, with an educational billy from [employer]. Thrive Questionnaire Date Thrive assessed: 02/02/25 I am a: Patient What is your living situation today?: I have a steady place to live Within the past 12 months, did the food you bought not last and you didn't have the money to get more?: Never true Within the past 12 months, did you worry whether your food would run out before you got money to buy more?: Never true Do you have trouble paying for medicines?: No Do you have trouble getting transportation to medical appointments?: No Do you have trouble paying your heating and electricity bill?: No Do you have trouble taking care of your child, family member or friend?: No Do you have trouble with day-to-day activities such as bathing, preparing meals, shopping, managing finances, etc.?: No Are you currently unemployed and looking for a job?: No Are you interested in more education?: No Currently or been in a relationship where the following occur: I choose not to answer THRIVE Score: 0 AUDIT C Alcohol Use Questionnaire (AUDIT-C) 1. How often do you have a drink containing alcohol?: Never 3. How often do you have six or more drinks on one occasion?: Never Total Score: 0 Score Reviewed/Action Taken: Yes NINFA-7 AMB Questionnaire NINFA-7 Date NINFA - 7 assessed: 02/02/25 Feeling nervous, anxious, or on edge: 0 = Not at all Not being able to stop or control worryin = Not at all Worrying too much about different things: 0 = Not at all Trouble relaxin = Not at all Being so restless that it is hard to sit still: 0 = Not at all Becoming easily annoyed or irritable: 0 = Not at all Feeling afraid as if something awful might happen: 0 = Not at all Total NINFA-7 score (0-4 normal; 5-9 mild; 10-14 moderate; 15-21 severe): 0 Source: Developed by Drs. Asad Mon, Siobhan Carrillo, Jalil Grijalva and colleagues, with an educational billy from [employer]. NINFA-7 Assessment Billing NINFA-7 Assessment Tool: NINFA-7 Assessment 19364 Review of Systems Const Denies body aches, Denies fever(s), Denies headache(s) and Denies weakness Eyes Details: Goes to [facility] and surgery associates at [address] [place] [address] [address] in [facility], no retinopathy, beginning glaucoma Denies change in vision ENT Denies dizziness and Denies headache(s) Card Denies chest pain, Denies lightheadedness and Denies dyspnea Resp Denies chest congestion, Denies cough and Denies dyspnea GI Denies abdominal pain, Denies change in bowel habits and Denies heartburn Denies hematuria, Denies difficulty urinating and Denies dysuria Musc Reports no additional complaints Skin/Breast Denies lesions and Denies rash Neuro Denies dizziness, Denies headache(s) and Denies weakness Psych Reports no additional complaints Endo Reports no additional complaints Kevan/Lymph Denies easy bleeding and Denies easy bruising Aller/Immun Reports no additional complaints Physical exam (Primary Care) Vital Signs: Last Vital Signs Temp 98.0 F 02/02/25 12:54 Pulse 85 02/02/25 12:54 BP 142/80 H 02/02/25 12:54 Pulse Ox 95 02/02/25 12:54 BMI result Body Mass Index 39.4 Tobacco/Smoking Status: Tobacco use Status Tobacco use date assessed 10/01/24 02/02/25 12:55 Patient Tobacco Use Status Never used Tobacco 02/02/25 12:55 e-Cigarette/Vaping Use Never Used 02/02/25 12:55 PHQ-9: PHQ-9 Score PHQ-9: Total score 3 02/02/25 13:13 Depression Screening Interpretation: Negative Thrive Assessment: Date of Thrive Assessment Date Thrive assessed 02/02/25 02/02/25 12:55 Currently or been in a relationship where the following occur: I choose not to answer Const General: no acute distress and alert Nutritional Appearance: obese morbidly obese Orientation/consciousness: patient oriented x3 HENMT Ears: external ears normal General nose exam: Normal external nose present and No nasal discharge present Mouth: oropharynx normal and moist mucous membranes Eyes General: appearance normal, both eyes and all related structures Neck Neck: Yes full ROM, Yes no lymphadenopathy and Yes supple Resp Effort & Inspection: normal respiratory effort and able to speak in complete sentences Auscultation: clear to auscultation bilaterally Cardio Rate: regular rate Rhythm: regular rhythm Heart sounds: S1 normal heart sound present and S2 normal heart sound present Peripheral pulses: posterior tibial pulses present and dorsalis pedis present GI Palpation (GI): Soft to palpation, nontender and no masses Auscultation: normal bowel sounds Male General Exam: Yes normal external exam Skin General skin exam: no rashes or lesions noted Neuro General: patient oriented x3, moves all extremities, no focal motor deficits and CN's II-XI intact bilaterally Extrem General: Yes full ROM, Yes no joint enlargement, Yes no pedal edema, Yes no calf tenderness and Yes normal gait Psych Appearance: grossly normal Mental Status: mental status grossly normal Speech and movement: Normal speech and movement present Affect: normal affect Results Reviewed Results Reviewed: Name: Waqar Sánchez Age/Sex: 69/M : 1955 Unit#: [id number] Attend Dr: Caitlyn Arreola MD Re01/19/25 Status: DEP [facility]: SPEC : [id number] [place]: 01/19/25 STATUS: COMP REQ : [id number] RECD: 01/19/[address]: Caitlyn Arreola MD COMP: 01/19/25 ENTERED: 01/19/25 [facility]: ORDERED: Met Prof Fast, AST, ALT, Lipid Panel, Vitamin D 25-OH, TSH Rflx Test Result Flag Reference Sodium 141 135-145 mmol/L Potassium 4.1 3.3-5.1 mmol/L CL 102 96-108 mmol/L CO2 29 22-29 mmol/L Gap 14 12-20 BUN 22 H 9-16 mg/dL Creat 0.81 0.5-1.4 mg/dL eGFR > 60 Chronic Kidney Disease: Estimated GFR < 60 mL/min/1.73m2 Severe Kidney Disease: Estimated GFR < 15 mL/min/1.73m2 FBS 254 H 60-99 mg/dL A fasting glucose of 126 mg/dl or greater on more than one occasion is considered diagnostic of diabetes. CA 9.7 8.4-10.2 mg/dL AST (GOT) 27 5-37 U/L ALT (GPT) 36 0-40 U/L Triglyceride 155 H <150 mg/dL Desirable Triglyceride: less than 150 mg/dL Borderline High Triglyceride 150-199 mg/dL High Triglyceride: 200-499 mg/dL Very High Triglyceride: greater than or equal to 5OO mg/dL Cholesterol 123 <200 mg/dL Desirable Cholesterol: less than 200 mg/dL Borderline High Cholesterol: 200-239 mg/dL High Cholesterol: greater than 239 mg/dL LDL Calculated 59 <100 mg/dL Desirable LDL: less than 100 mg/dL Near Optimal/Above Optimal LDL: 110-129 mg/dL Borderline High LDL: 130-159 mg/dL High LDL: 160-189 mg/dL Very High LDL: greater than or equal to 190 mg/dL HDL 33 L >40 mg/dL Desirable HDL: greater than 40 mg/dL Note: This HDL assay may give artificially low results in patients with liver disease. Vitamin D 25-OH 64.0 >30 ng/mL Health Based Reference Values* < 20 ng/mL Deficient 20-30 ng/mL Insufficient > 30 ng/mL Sufficient *Tracy ACEVEDO. N Engl J Med. 2007;357:266-280 There is no well-established upper level of normal vitamin D levels. Some laboratories use 50 ng/mL as an upper limit of normal. However, toxicity is patient-dependent and may occur at any level. Careful correlation with the patient's presentation is necessary and, if there is concern for vitamin D toxicity, treatment should be considered irrespective of the serum level. Care must be taken in interpreting Vitamin D results from different laboratories and methodologies. Published data demonstrated that results from patients undergoing hemodialysis may show a negative bias when tested with various automated 25-OH vitamin D assays when compared to LC-MS/MS. When testing samples from patients whose predominant form of Vitamin D is Vitamin D2, such as patients receiving Vitamin D2 supplementation, results that are subtherapeutic should be confirmed with another method such as LC-MS/MS. TSH 1.45 0.32-4.0 uIU/mL Laboratory Tests 09/17/24 01/19/25 06:21 06:52 Estimat Average Glucose 203 Hemoglobin A1c % 8.7 H Microalb/Creat Ratio 878.1 H Coding Level of Care Code Est Pt Level 4 (68091) Diagnoses Primary hypertension I10 Hypertension type: primary hypertension Pure hypercholesterolemia E78.00 Hyperlipidemia type: pure hypercholesterolemia Type 2 diabetes mellitus with other diabetic kidney complication E11.29 Morbid obesity E66.01 Additional Codes NINFA-7 Assessment Billing - NINFA-7 Assessment Tool: NINFA-7 Assessment 27915 ([id number]) PHQ-9 - 29367 - PHQ-9 Billing: Yes ([id number]) Assessment & Plan Assessment & Plan (1) Hypertension: Code(s): I10 - Essential (primary) hypertension Category: Medical Qualifiers: Hypertension type: primary hypertension Qualified Code(s): I10 - Essential (primary) hypertension Plan: Continued on lisinopril-HCTZ and metoprolol tartrate 25 mg taken 1 tab twice a day. Reinforced importance of following a low-salt diet and continue with regular exercise at least 150 minutes of moderate intensity exercise in a week. (2) Hyperlipidemia: Code(s): E78.5 - Hyperlipidemia, unspecified Category: Medical Qualifiers: Hyperlipidemia type: pure hypercholesterolemia Qualified Code(s): E78.00 - Pure hypercholesterolemia, unspecified Plan: Fasting lipids are within normal limits, continued on atorvastatin 20 mg every other day (3) Type 2 diabetes mellitus with other diabetic kidney complication: Code(s): E11.29 - Type 2 diabetes mellitus with other diabetic kidney complication Category: Medical Plan: Poorly controlled diabetes mellitus with hemoglobin A1c now at 8.7%. Will stop Ozempic and switched to Mounjaro started at 7.5 mg injected once a week. Increase metformin to 1000 mg 1 tablet twice a day. Stressed importance of following recommended diet and getting regular exercise. Reminded to get his yearly diabetes retinopathy screening. Will see him back for follow-up in 3 months (4) Morbid obesity: Code(s): E66.01 - Morbid (severe) obesity due to excess calories Category: Medical Plan: Discontinue Ozempic and switched to Mounjaro, reinforced importance of following healthy diet and regular exercise. See him back for follow-up in 3 months Orders: Orders Hemoglobin A1c 04/25/25 E08.40 - Diabetes mellitus due to underlying condition with diabetic neuropathy, unspecified, E11.29 - Type 2 diabetes mellitus with other diabetic kidney complication, E66.01 - Morbid (severe) obesity due to excess calories, E78.00 - Pure hypercholesterolemia, unspecified, I10 - Essential (primary) hypertension Lipid Panel 04/25/25 E08.40 - Diabetes mellitus due to underlying condition with diabetic neuropathy, unspecified, E11.29 - Type 2 diabetes mellitus with other diabetic kidney complication, E66.01 - Morbid (severe) obesity due to excess calories, E78.00 - Pure hypercholesterolemia, unspecified, I10 - Essential (primary) hypertension Aspartate Amino Transferase 04/25/25 E08.40 - Diabetes mellitus due to underlying condition with diabetic neuropathy, unspecified, E11.29 - Type 2 diabetes mellitus with other diabetic kidney complication, E66.01 - Morbid (severe) obesity due to excess calories, E78.00 - Pure hypercholesterolemia, uns pecified, I10 - Essential (primary) hypertension Alanine Aminotransferase 04/25/25 E08.40 - Diabetes mellitus due to underlying condition with diabetic neuropathy, unspecified, E11.29 - Type 2 diabetes mellitus with other diabetic kidney complication, E66.01 - Morbid (severe) obesity due to excess calories, E78.00 - Pure hypercholesterolemia, unspecified, I10 - Essential (primary) hypertension Basic Metabolic Panel Fasting 04/25/25 E08.40 - Diabetes mellitus due to underlying condition with diabetic neuropathy, unspecified, E11.29 - Type 2 diabetes mellitus with other diabetic kidney complication, E66.01 - Morbid (severe) obesity due to excess calories, E78.00 - Pure hypercholesterolemia, unspecified, I10 - Essential (primary) hypertension Medications: New cholecalciferol (vitamin D3) 50 mcg PO DAILY 90 caps 1RF Mounjaro (tirzepatide) 7.5 mg (0.5 mL) subcut QWEEK 2 mL 5RF NS E08.40 - Diabetes mellitus due to underlying condition with diabetic neuropathy, unspecified, E11.29 - Type 2 diabetes mellitus with other diabetic kidney complication, E66.01 - Morbid (severe) obesity due to excess calories, E78.00 - Pure hypercholesterolemia, unspecified, I10 - Essential (primary) hypertension Changed From metformin 500 mg PO BID 3 months 180 tabs 4RF E11.9 - Type 2 diabetes mellitus without complications To metformin 1,000 mg PO BID 180 tabs 4RF 3 months E11.9 - Type 2 diabetes mellitus without complications Discontinued Ozempic (semaglutide) Discontinued Reason: Doctor's Order 2 mg (0.75 mL) subcut QWEEK 30 days 3 mL 5RF NS E08.40 - Diabetes mellitus due to underlying condition with diabetic neuropathy, unspecified, E11.29 - Type 2 diabetes mellitus with other diabetic kidney complication, E78.00 - Pure hypercholesterolemia, unspecified, I10 - Essential (primary) hypertension
--- OUTSIDE RECORDS SUMMARY | 2025-02-02 13:33 | XMS_ITS | Clinical Summary ---
Author Organization [facility] Address [address] [place] [address] Care Team Providers Care Dough Cutter Name Role Phone Unavailable Primary Care Provider [...] complication, without long-term current use of insulin (CMS/[facility] V24, CMS/[facility] V28) 11/18/2018 DX:Type 2 diabetes mellitus without complication, without long-term current use of insulin (HCC) Type 2 diabetes mellitus wit hout complication, without long-term current use of insulin (CMS/[facility] V24, CMS/[facility] V28) 11/18/2018 DX:Type 2 diabetes mellitus without [...] Panel) 06/11/2022 Colorectal Cancer Screening: Colonoscopy 06/11/2022 Falls Risk Assessment 06/11/2022 Hepatitis C Screening 06/11/2022 Social Influencers of Health Screening 06/11/2022 Diabetes: Annual Urine Albumin-Creatinine Ratio (uACR) 06/24/2022 Diabetes: Blood Sugar Control Test (HGBA1C) 06/24/2022 Hypertension/CHF/CAD Annual BMP Blood Test 06/24/2022 COVID-19 Vaccine (2 - 2023-25 season) 2024 09/19/2020 Depression Screening 07/09/2024 Influenza Vaccine (#1) 2025 0, 04/26/2019, 03/22/2018, [...]
--- OUTSIDE RECORDS SUMMARY | 2025-02-02 13:33 | XMS_ITS | Clinical Summary ---
Author Organization [employer] Address [address] [facility] [address] [place] [address] Care Team Providers Care Sagger Soak Name Role Phone Unavailable Primary Care Provider [...]
== END 2025-02-02 13:25 | disposition home or self-care (01) ==
LOC: HO.HMCC 12:53
PROVIDERS: PCP Internal Medicine; Visit Provider Internal Medicine
DX: I10 Essential (primary) hypertension (principal); E11.29 Type 2 diabetes mellitus with other diabetic kidney complication; E66.01 Morbid (severe) obesity due to excess calories; Z68.39 Body mass index [BMI] 39.0-39.9, adult; E78.00 Pure hypercholesterolemia, unspecified

== ENCOUNTER → 2025-02-02 12:52 | Outpatient (BNVA) | payer OTHER, SELFPAY | PROVIDERS: PCP Internal Medicine; Visit Provider Internal Medicine | DX: E11.29 Type 2 diabetes mellitus with other diabetic kidney complication (principal); E11.40 Type 2 diabetes mellitus with diabetic neuropathy, unspecified; E66.01 Morbid (severe) obesity due to excess calories; I10 Essential (primary) hypertension; E78.00 Pure hypercholesterolemia, unspecified; Z68.39 Body mass index [BMI] 39.0-39.9, adult | CPT/HCPCS: 96127; 99212 ==

== ENCOUNTER 2025-04-29 06:01 | Outpatient (REF) | payer OTHER, SELFPAY ==
--- OUTSIDE RECORDS SUMMARY | 2024-04-04 08:15 | XMS_ITS ---
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 Name Role Phone Elba ZUÑIGA, Caitlyn Steward Primary Care Provider Un available Mahamed Ramos Unavailable [phone] Encounters Encounter Location Date Provider Diagnosis [facility] [address] [place] [address] 04/04/2024 Mahamed Ramos Plan Of Treatment No Information Progress Notes * Waqar SÁNCHEZ NDOB: (69 yo M)Acc No.[id number]:04/04/2024 Progress Note Patient: Waqar REID Provider: Nae Ramos DPM :1955 A ge:68 Y S ex:Male Date:04/04/2024 Address:[address] [place] [address], [id number] Pcp:Lee Charles Subjective: * Chief Complaints: * * Medical History: Objective: * Vitals: Assessment: Plan: * Treatment: * Images: * The named appointment provid er may or may not be the originator of this progress note, and it is not deemed complete until electronically signed by the appointment provider. Sign off status: Pending * Provider: Nae Ramos DPM Date: 0 04/04/2024 Generated for Printi ng/Fasbg/eTransmitting on: 1 06:07 AM EDT
--- OUTSIDE RECORDS SUMMARY | 2024-04-29 09:00 | XMS_ITS ---
Author Organization [facility] [place] Address [address] [place] [address] Care Team Providers Care Music Therapy Teacher Name Role Phone Elba ZUÑIGA, Caitlyn Steward Primary Care Provider Un available Rachel Mahamed Unavailable [phone] Allergies No Known Allergies Medications Medication SIG (Take, Route, Frequency, Duration) Notes Start Date End Date Status Lisinopril-hydroCHLOROthia zide 10-12.5 MG 1 tablet Orally Once a day Active Loratadine 10 MG 1 tablet Orally Once a day Active Extra Depth Orthopedic Shoes, (1) Pair With (3) Pair Custom Heat Molded Multidensity Innersoles Dx: NIDDM/PVD(E11.51), Hammertoe Foot Deformity(M20.41,M20.42), Preulcerative Skin Lesion(s)(L85.1) Wear Daily; Duration: 365 days 01/22/2024 Active metFORMIN HCl 1000 MG 1 tablet with a me al Orally Once a day Active Venlafaxine HCl ER 75 MG 1 capsule with food Orally Once a day Active Atorvastatin Calcium 20 MG/5ML 5 mL Orally Once a day Activ e Metoprolol Tartrate 25 MG 1 tablet with food Orally Twice a day Active Vitamin D3 Active Social History Tobacco Use: Social History Observation Description Date Details (start date - stop date) Never Smoker NA - NA Tobacco Use/Smoking Question Answer Notes Are you a: nonsmoker Additional Findings: Tobacco Non-User Current no n-smoker Alcohol Screen Question Answer Notes Did you have a drink containing alcohol in the p ast year? No Points 0 Interpretation Negative Tobacco use other than smoking: Question Answer Notes Are you an other tobacco user? No Vital Signs Height 5ft 5in in 04/29/2024 Weight 243 lbs 04/29/2024 BMI 40.43 kg/m2 04/29/2024 Encounters Encounter Location Date Provider Diagnosis [facility] [place] [address] [place] [address] 04/29/2024 Mahamed Ramos Plan Of Treatment No Information Progress Notes * Waqar SÁNCHEZ NDOB: [birth year] (69 yo M)Acc No.[id number]:04/29/2024 Progress Note Patient: Waqar REID N Provider: Nae Ramos DPM :1955 A ge:68 Y S ex:Male Date:04/29/2024 Address:[address] [place], [place] [id number] Pcp:Lee Charles Subjective: * Chief Complaints: * * ROS: G eneral/Constitutional: Nausea d enies. V omiting d enies. H salty Thirst d enies. L oss appetite d enies. C hills d enies. F atigue d enies.?Fever d enies. N ight Sweats d enies. U nexplained weight loss d enies. U nexplained weight gain d enies. H EENTM: Dentures d enies. D izziness d enies. G lasses/contacts a dmits . R etinopathy d enies. B lurred/double vision d enies. T MJ d enies. D ischarge/drainage d enies. I mplants d enies. S ore throat d enies. D ental implants d enies. H ya of hearing d enies. D ifficulty chewing/swallowing/speaking d enies. N ose bleeds d enies. S ore mouth d enies. R espiratory: On Oxygen d enies. P neumonia/pleurisy d enies.?Bronchitis d enies. E mphysema d enies. C oughing d enies. C ough blood?denies. S hortness of breath d enies. W heezing d enies. C ardiovascular: Pacemaker d enies. M [employer] d enies. W PW d enies. C HF d enies. H eart attack d enies. S eptal defect d enies. R apid beat d enies. C hest pain d enies. A trial Fib. d enies. M urmur/Palpitations d enies. G astrointestinal: Hemorrhoids d enies. S tomach/Abdominal pain d enies. D ark blood stool d enies. I rritable bowel d enies. C onstipation d enies. D iarrhea d enies. H ematology: Swelling a dmits. C lots d enies. V aricose Veins d enies. B ruising d enies. B leeding problem d enies. G enitourinary: Blood urine d enies. F requent/Painfu/urination/bladder control d enies. K idney stones d enies. I nfection (UTI) d enies. N ephropathy d enies. s ex trans dis (STD) d enies. P rostate d enies. M usculoskeletal: Hammertoes a dmits. B unions d enies. B ack Pain a dmits, sciatica. M uscle Cramps/ Resting d enies. M uscle cramps / walking d enies. G eneralized aches and pains d enies. W eakness d enies. I nteg.: Hand d enies. S cars d enies. C orns/calluses?admits. I ngrown nails d enies. P ainful nails a dmits. O pen Sores d enies. R ashes d enies. N eurologic: Difficulty sleeping d enies. B rain disorder d enies. N umbness d enies. B alance trouble d enies. C onfusion d enies. F ainting/blackouts d enies. T ingling d enies. T remors d enies. * Medical History: D epression, Diabetic, Headaches/Migraines, High blood pressure, Sinusitis, Measles, Mumps, Chicken pox. * Surgical History: h junior abdominal 2006. * Hospitalization/Major Diagno stic Procedure: D enies Past Hospitalization. * Family History: M other: , poor circulation, diagnosed with Family history of arthritis, Diabetic - NIDDM, Unspecified essential hypertension, Other malignant neoplasm of unspecified site. F ather: . * Social History: T obacco Use: T obacco Use/Smoking A re you a: n onsmoker A dditional Findings: Tobacco Non-User C urrent non-smoker Tobacco use other than smoking A re you an other tobacco user? N o D rugs/Alcohol: D rugs H ave you used drugs other than those for medical reasons in the past 12 months? N o Alcohol Screen D id you have a drink containing alcohol in the past year? N o P oints 0 I nterpretation N egative M iscellaneous: C affeine: yes, frequency:, 1-2 cups per day. Children: yes. Exercise: yes, walking. 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 * Medications: T aking Vitamin D3 , Taking Atorvastatin Calcium 20 MG/5ML Suspension 5 mL Orally Once a day , Taking Metoprolol Tartrate 25 MG Tablet 1 tablet with food Orally Twice a day , Taking Lisinopril-hydroCHLOROthiazide 10-12.5 MG Tablet 1 tablet Orally Once a day , Taking Loratadine 10 MG Tablet 1 tablet Orally Once a day , Taking metFORMIN HCl 1000 MG Tablet 1 tablet with a meal Orally Once a day , Taking Venlafaxine HCl ER 75 MG Capsule Extended Release 24 Hour 1 capsule with food Orally Once a day , Taking Extra Depth Orthopedic Shoes, (1) Pair With (3) Pair Custom Heat Molded Multidensity Innersoles . Dx: NIDDM/PVD(E11.51), Hammertoe Foot Deformity(M20.41,M20.42), Preulcerative Skin Lesion(s)(L85.1) Wear Daily , Medication List reviewed and reconciled with the patient * Allergies: N .K.D.A. Objective: * Vitals: H t: 5ft 5in, Wt:243, BMI:40.43, Shoe size: 12, BS: 130, Ht-cm: 165.1 cm, Wt-k.22 kg. * Examination: O phthalmology Referral: DIABETES EYE EXAM D iabetic Retinopathy Screening: Y es F indings of Diabetic Eye Exam: n o retinopathy Assessment: Plan: * Treatment: * Images: * The named appointment provid er may or may not be the originator of this progress note, and it is not deemed complete until electronically signed by the appointment provider. Sign off status: Pending * Provider: Nae Ramos DPM Date: Generated for Diana ramires/Jack/Lennie on: 06:07 AM EDT History and Physical Notes * Examination Category Sub-Category Detail Notes Category Not es Ophthalmology Referral DIABETES EYE EXAM Diabeti c Retinopathy Screening:: Yes Findings of Diabetic Eye Exam:: no retin opathy
--- OUTSIDE RECORDS SUMMARY | 2024-10-21 06:30 | XMS_ITS ---
Author Organization [facility] Address [address] [place] [address] Care Team Providers Care Data Consultant Name Role Phone Elba ZUÑIGA, Cailtyn Steward Primary Care Provider Un available Mahamed Ramos Unavailable [phone] Encounters Encounter Location Date Provider Diagnosis [facility] [address] [place] [address] 10/21/2024 Mahamed Ramos Plan Of Treatment No Information Progress Notes * Waqar SÁNCHEZ NDOB: (69 yo M)Acc No.[id number]:10/21/2024 Progress Note Patient: Waqar REID Provider: Nae Ramos DPM :1955 A ge:69 Y S ex:Male Date:10/21/2024 Address:[address] [place] [address], [facility] Pcp:Lee Charles Subjective: * Chief Complaints: * * Medical History: Objective: * Vitals: Assessment: Plan: * Treatment: * Images: * The named appointment provid er may or may not be the originator of this progress note, and it is not deemed complete until electronically signed by the appointment provider. Sign off status: Pending * Provider: Nae Ramos DPM Date: 0 10/21/2024 Generated for Printi ng/Fasbg/eTransmitting on: 1 06:07 AM EDT
--- OUTSIDE RECORDS SUMMARY | 2025-04-29 06:07 | XMS_ITS | Clinical Summary ---
Author Organization [facility] Address [address] [place] [address] Care Team Providers Care Food Cart Attendant Name Role Phone Unavailable Primary Care Provider [...] complication, without long-term current use of insulin (CMS/[facility] V24, CMS/[facility] V28) 11/18/2018 DX:Type 2 diabetes mellitus without complication, without long-term current use of insulin (HCC) Type 2 diabetes mellitus wit hout complication, without long-term current use of insulin (CMS/[facility] V24, CMS/[facility] V28) 11/18/2018 DX:Type 2 diabetes mellitus without [...] Health Maintenance Due Date Last Done Comments Pneumococcal Vaccine: 50+ Years (1 of 1 - PCV) 2005 Zoster Vaccines (1 of 2) 2005 DTaP,Tdap,and Td Vaccines (2 - Td or Tdap) 11/23/2018 11/23/2008 Depression Screening 07/09/2024 COVID-19 Vaccine (2 - 2024- season) 2025 09/19/2020 Influenza Vaccine (#1) 2025 0, 04/26/2019, 03/22/2018, Additional history exists RSV Immunization Adult Patients (1 - 1-dose 75+ series) 2030 HIB [...]
--- OUTSIDE RECORDS SUMMARY | 2025-04-29 06:08 | XMS_ITS | Clinical Summary ---
Author Organization [email or web address] Address [address] [facility] 7[address] [place] [address] Care Team Providers Care Answering Service Operator Name Role Phone Unavailable Primary Care [...] Vaccines (1 of 2) 2005 COVID-19 Vaccine (1 - 2023-2 5 season) 2025 Influenza Vaccine (#1) 2025 RSV Patients and [...]
--- OUTSIDE RECORDS SUMMARY | 2025-04-29 06:08 | XMS_ITS | Encounter Summary ---
Author Organization [facility] [facility] Address [address] [facility] [address] [place] [address] Care Team Providers Care Otolaryngology Teacher Name Role Phone Unavailable Primary Care Provider Unavailabl e Encounter Details Date Type Department Care Team (Latest Contact Info) Description 09/07/2020 Abstract [facility] CONVERSIONS Dental, Provider, DDS Social [...]
--- OUTSIDE RECORDS SUMMARY | 2025-04-29 06:08 | XMS_ITS | Patient Health Record ---
Author Organization [facility] Address [address] [facility] [place] [address] Care Team Providers Care Leather Flesher Name Role Phone Elba ZUÑIGA, Caitlyn Steward Primary Care Provider Un available Mahamed Ramos Unavailable [phone] Allergies No Known Allergies Results Component Value Reference Range Notes HEMOGLOBIN A1C (GLYCOHEMOGLO BIN) Reviewed date:07/25/2024 09:30:22 AM Interpretation: Performing Lab: Notes/Report: HEMOGLOBIN A1C % (HH) 6.3 HEMOGLOBIN A1C (GLYCOHEMOGLO BIN) Reviewed date:03/12/2025 12:28:54 PM Interpretation: Performing Lab: Notes/Report: HEMOGLOBIN A1C % [...] Wear Daily; Duration: 365 days 01/22/2024 Active Ciclopirox Olamine 0.77 % 1 application Externally Twice a day to skin of feet including between the toes; Duration: 30 days Active Lisinopril-hydroCHLOROthia zide 10-12.5 MG [...] Problem Acquired hammer toe of right foot ([id number] 105) Other hammer toe(s) (acquired), right foot (M20.41) Active confirmed Response to treatment,I mprovement Problem Type 2 diabetes mellitus with peripheral angiopathy ([id number]) Type 2 diabetes mellitus with diabetic peripheral angiopathy without gangrene (E11.51) Active confirmed Q7(A), Q8(2B), Q9(1B,2C) Problem Acquired hammer toe of left foot (5337907414153 103) Other hammer toe(s) (acquired), left foot (M20.42) Active confirmed Response to treatment,I mprovement Vital Signs Blood pressure diastolic 81 mm Hg 07/25/2024 Height 5ft5in in 07/25/2024 Blood pressure systolic 132 mm Hg 07/25/2024 Weight 246 lbs 07/25/2024 BMI 40.93 kg/m2 07/25/2024 Procedures Procedure Date Ordered Date Performed Result Body Sit e 75202-MURXMAI NAIL, 6 OR MORE 05/02/2024 N/A 56265-LJNS SKIN LESIONS, OVER 4 05/02/2024 N/A 46551-YSRAPFK NAIL, 6 OR MORE 07/25/2024 N/A 64628-Hmjvkvph Plate 07/25/2024 N/A 93480-UHLV SKIN LESIONS, OVER 4 07/25/2024 N/A Encounters Encounter Location Date [facility] [address] [place] [address] 05/02/2024 Mahamed Ramos Type 2 diabetes mellitus with diabetic peripheral angiopathy without gangrene E11.51 ; Tinea unguium B35.1 ; Pain in right toe(s) M79.674 ; Pain in left toe(s) M79.675 ; Other hammer toe(s) (acquired), right foot M20.41 and Other hammer toe(s) (acquired), left foot M20.[address] [address] 07/25/2024 Mahamed Ramos Type 2 diabetes mellitus with diabetic peripheral angiopathy without gangrene E11.51 ; Tinea unguium B35.1 ; Pain in right toe(s) M79.674 ; Pain in left toe(s) M79.675 ; Ingrown nail L60.0 and Tinea pedis of both feet B35.[address] [address] [facility] [address] [facility] [address] [address] 10/20/2024 Mahamed Ramos Assessments Encounter Date Diagnosis (ICD [...] feet (ICD-10 - B35.3) Plan Of Treatment Pending Test Test Name Order Date [id number] NAIL, 6 OR MORE 01/22/2024 45226-[id number] NAIL, 6 OR MORE 05/02/2024 80011-AAOJYCR NAIL, 6 OR MORE 07/25/2024 48278-Xrupqngb Plate 07/25/2024 96249-WHMQ SKIN LESIONS, OVER 4 07/25/19 03960-UMCZ SKIN LESIONS, OVER 4 05/02/20 94450-MLWX SKIN LESIONS, OVER 4 01/22/20 Insurance Providers Payer Name Payer Address Payer Phone Subscriber Number Group Number Insured Name Patient Relationship to Insured Coverage Start Date Coverage End Date Medicare [employer] [address] [place] [address] [id number] Waqar Sánchez Self - patient is the insured Medical (General) History Medical History History ICD Code Depression Diabetic Headaches/Migraines High blood pressure sinusitis Measles Mumps Chicken pox Surgical History Surgery Date(Month/Year) hernia abdominal 2006
[2025-04-29 11:01] LABS: Alanine Aminotransferase 39 U/L (0-40); Anion Gap 14 (12-20); Aspartate Amino Transferase 23 U/L (5-37); Blood Urea Nitrogen 29 mg/dL (9-16); Calcium 9.7 mg/dL (8.4-10.2); Carbon Dioxide 28 mmol/L (22-29); Chloride 101 mmol/L (96-108); Cholesterol 119 mg/dL (<200); Estimated Glomerular Filt Rate > 60; HDL Cholesterol 30 mg/dL (>40); Potassium 4.2 mmol/L (3.3-5.1); Sodium 139 mmol/L (135-145); Triglycerides 129 mg/dL (<150)
[2025-04-29 11:02] LABS: Total Hemoglobin (HGBA1C) 3852.7107 umol/L
== END 2025-04-29 06:02 | disposition home or self-care (01) ==
LOC: HO.HMGCLDS 06:01
PROVIDERS: PCP Internal Medicine; Visit Provider Internal Medicine
DX: I10 Essential (primary) hypertension (principal); E11.29 Type 2 diabetes mellitus with other diabetic kidney complication; E78.00 Pure hypercholesterolemia, unspecified; E66.01 Morbid (severe) obesity due to excess calories
CPT/HCPCS: 36415; 80048; 80061; 83036; 84450; 84460

== ENCOUNTER 2025-05-18 13:08 | Outpatient (AMB) | payer OTHER, SELFPAY ==
[2025-05-18 13:17] VITALS: BP 130/80; PULSE 79; RESP 16; TEMP 36.7; O2SAT 98; BMI 39.1
--- NOTE | 2025-05-18 13:17 | A.OFFPC_ITS ---
Vital Signs 05/18/25 13:17 Height 5 ft 5 in Weight 235 lb BMI 39.1 BP 130/80 Blood Pressure Location Lt brachial Position Sitting Respiration 16 Pulse 79 Pulse Source Pulse Oximeter Temp 98.1 F Temp Source Oral Pulse Oximetry (%) 98 Oxygen Delivery Method Room Air Intake Visit Reasons: 3 months f/up Intake Note: Pt is here today for his 3mo. 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 Required: No Allergies Seasonal Allergies Allergy (Mild, Verified 05/18/25 13:41) sneezing, runny nose Medication List - Last Reconciled 05/18/25 by Caitlyn Arreola MD atorvastatin 20 mg PO Q2D 90 days blood sugar diagnostic ([employer] Ultra Test strips) Test blood sugar 3 times per day cholecalciferol (vitamin D3) 50 mcg PO DAILY lancets test blood sugar 3 times per day lisinopril-hydrochlorothiazide 20-12.5 mg 1 tab PO DAILY metformin 1,000 mg PO BID 3 months metoprolol tartrate 25 mg PO BID 90 days Mounjaro (tirzepatide) 7.5 mg (0.5 mL) subcut QWEEK NS venlafaxine ER 75 mg PO DAILY Tobacco use date assessed: 05/18/25 Fall risk assessment: No Falls in past year Last assessed Fall Risk: 05/18/25 Dental Screening Dental Screen Date: 05/18/25 Did you have a dental visit in the last 12 months?: Yes Did you have a dental problem in the last 6 months where you did not have access to dental care?: Yes Was dental information given to patient?: Patient has dentist HPI 3 months f/up HPI Details 69-year-old male with past medical history significant for diabetes mellitus, with neuropathy, hyperlipidemia and hypertension, here today for his follow-up He is currently on metformin 1000 mg twice daily and Mounjaro, which was increased from 5 mg to 7.5 mg two months ago. His hemoglobin A1c has improved from 8.7 in January to 7.8, though it remains above the target of less than 7. His average blood glucose is 170 mg/dL, and he reports a decrease in urination fr equency with improved glucose control. His other chronic conditions include hypertension, managed with metoprolol 25 mg twice daily and lisinopril-HCTZ; depression, for which he takes venlafaxine 75 mg; and hyperlipidemia, treated with atorvastatin every two days. He also takes vitamin D daily and reports exercising. He has lost two pounds since his visit in January. Regarding health maintenance, the patient's last eye exam was approximately one to two years ago at [facility], and he reports no diabetic involvement was found at that time. He is up to date with his dental exams and cleanings, having had a visit a month ago, and he received his influenza vaccine last month. The patient denies any numbness, tingling, or pain in his feet. 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 Plantar callus Anemia Type 2 diabetes mellitus with other diabetic kidney complication Lumbago History of nephrolithiasis SYLVIA on CPAP Type 2 diabetes mellitus without complication, with no history of insulin use Morbid obesity Surgical History H/O ventral hernia repair Family History Other No significant family history Social History Housing: Apartment Alcohol intake: never Patient Tobacco Use Status: Never used Tobacco e-Cigarette/Vaping Use: Never Used Current occupational status: disabled Cognitive needs: No Hearing needs: No Vision needs: No Questionnaire PHQ-9 Over the last 2 weeks, how often have you been bothered by any of the following problems? 1. Little interest or pleasure in doing things: not at all 2. Feeling down, depressed, or hopeless: not at all 3. Trouble falling or staying asleep, or sleeping too much: not at all 4. Feeling tired or having little energy: not at all 5. Poor appetite or overeating: not at all 6. Feeling bad about yourself - or that you are a failure or have let yourself or your family down: not at all 7. Trouble concentrating on things, such as reading the newspaper or watching television: not at all 8. Moving or speaking so slowly that other people could have noticed. Or the opposite - being so fidgety or restless that you have been moving around a lot more than usual: not at all 9. Thoughts that you would be better off or of hurting yourself in some way: not at all Total score: 0 Depression Screening Interpretation: Negative (controlled on venlafaxine) Depression Screening Done: Yes 65500 - PHQ-9 Billing: Yes Source: Developed by Drs. Asad Mon, Siobhan Carrillo, Jalil Grijalva and colleagues, with an educational billy from [employer] Thrive Questionnaire Date Thrive assessed: 02/02/25 I am a: Patient What is your living situation today?: I have a steady place to live Within the past 12 months, did the food you bought not last and you didn't have the money to get more?: I choose not to answer this question Within the past 12 months, did you worry whether your food would run out before you got money to buy more?: I choose not to answer this question Do you have trouble paying for medicines?: I choose not to answer this question THRIVE Score: 0 AUDIT C Alcohol Use Questionnaire (AUDIT-C) 1. How often do you have a drink containing alcohol?: Never 3. How often do you have six or more drinks on one occasion?: Never Total Score: 0 Score Reviewed/Action Taken: Yes NINFA-7 AMB Questionnaire NINFA-7 Date NINFA - 7 assessed: 02/02/25 Feeling nervous, anxious, or on edge: 0 = Not at all Not being able to stop or control worryin = Not at all Worrying too much about different things: 0 = Not at all Trouble relaxin = Not at all Being so restless that it is hard to sit still: 0 = Not at all Becoming easily annoyed or irritable: 0 = Not at all Feeling afraid as if something awful might happen: 0 = Not at all Total NINFA-7 score (0-4 normal; 5-9 mild; 10-14 moderate; 15-21 severe): 0 Source: Developed by Drs. Asad Mon, Siobhan Carrillo, Jalil Grijalva and colleagues, with an educational billy from [employer] Review of Systems Const Denies body aches, Denies fever(s), Denies headache(s) and Denies weakness Eyes Details: Goes to [facility] for his diabetes retinopathy screening, overdue, last eye exam was a year Denies change in vision ENT Details: Up-to-date with dental exam/clean Denies dizziness and Denies headache(s) Card Denies chest pain, Denies lightheadedness and Denies dyspnea Resp Denies chest congestion, Denies cough and Denies dyspnea GI Denies abdominal pain, Denies change in bowel habits and Denies heartburn Denies hematuria, Denies difficulty urinating and Denies dysuria Musc Reports no additional complaints Skin/Breast Denies lesions and Denies rash Neuro Denies dizziness, Denies headache(s) and Denies weakness Psych Reports no additional complaints Endo Reports no additional complaints Kevan/Lymph Denies easy bleeding and Denies easy bruising Aller/Immun Reports no additional complaints Physical exam (Primary Care) Vital Signs: Last Vital Signs Temp 98.1 F 05/18/25 13:17 Pulse 79 05/18/25 13:17 Resp 16 05/18/25 13:17 BP 130/80 05/18/25 13:17 Pulse Ox 98 05/18/25 13:17 Oxygen Delivery Method Room Air 05/18/25 13:17 BMI result Body Mass Index 39.1 Tobacco/Smoking Status: Tobacco use Status Tobacco use date assessed 05/18/25 05/18/25 13:22 Patient Tobacco Use Status Never used Tobacco 05/18/25 13:22 e-Cigarette/Vaping Use Never Used 05/18/25 13:22 PHQ-9: PHQ-9 Score PHQ-9: Total score 3 05/18/25 13:44 Depression Screening Interpretation: Negative (controlled on venlafaxine) Thrive Assessment: Date of Thrive Assessment Date Thrive assessed 02/02/25 05/18/25 13:22 Const General: no acute distress and alert Nutritional Appearance: obese morbidly obese Orientation/consciousness: patient oriented x3 Limitations: no limitations HENMT Ears: external ears normal General nose exam: Normal external nose present and No nasal discharge present Mouth: oropharynx normal and moist mucous membranes Eyes General: appearance normal, both eyes and all related structures Neck Neck: Yes full ROM, Yes no lymphadenopathy and Yes supple Resp Effort & Inspection: normal respiratory effort and able to speak in complete sentences Auscultation: clear to auscultation bilaterally Cardio Rate: regular rate Rhythm: regular rhythm Heart sounds: S1 normal heart sound present and S2 normal heart sound present Peripheral pulses: posterior tibial pulses present and dorsalis pedis present GI Palpation (GI): Soft to palpation, nontender and no masses Auscultation: normal bowel sounds Male General Exam: Yes normal external exam Skin General skin exam: no rashes or lesions noted Neuro General: patient oriented x3, gait normal, moves all extremities, Normal light touch and pain sensation, no focal motor deficits and CN's II-XI intact bilaterally Extrem General: Yes full ROM, Yes no joint enlargement, Yes no pedal edema, Yes no calf tenderness and Yes normal gait Psych Appearance: grossly normal Mental Status: mental status grossly normal Speech and movement: Normal speech and movement present Affect: normal affect Results Reviewed Results Reviewed: Laboratory Tests 09/17/24 04/29/25 06:21 06:08 Estimat Average Glucose 177 Hemoglobin A1c % 7.8 H Microalb/Creat Ratio 878.1 H Name: Waqar Sánchez Age/Sex: 69/M : 1955 Unit#: [id number] Attend Dr: Caitlyn Arreola MD Re04/29/25 Status: DEP REF Location: [facility] Disch: SPEC : [id number] [place]: 04/29/25 STATUS: COMP REQ : [id number] RECD: 04/29/[address]: Caitlyn Arreola MD COMP: 04/29/25 ENTERED: 04/29/[address]: ORDERED: Met Prof Fast, AST, ALT, Lipid Panel Test Result Flag Reference Sodium 139 135-145 mmol/L Potassium 4.2 3.3-5.1 mmol/L CL 101 96-108 mmol/L CO2 28 22-29 mmol/L Gap 14 12-20 BUN 29 H 9-16 mg/dL Creat 0.88 0.5-1.4 mg/dL eGFR > 60 Chronic Kidney Disease: Estimated GFR < 60 mL/min/1.73m2 Severe Kidney Disease: Estimated GFR < 15 mL/min/1.73m2 FBS 158 H 60-99 mg/dL A fasting glucose of 126 mg/dl or greater on more than one occasion is considered diagnostic of diabetes. CA 9.7 8.4-10.2 mg/dL AST (GOT) 23 5-37 U/L ALT (GPT) 39 0-40 U/L Triglyceride 129 <150 mg/dL Desirable Triglyceride: less than 150 mg/dL Borderline High Triglyceride 150-199 mg/dL High Triglyceride: 200-499 mg/dL Very High Triglyceride: greater than or equal to 5OO mg/dL Cholesterol 119 <200 mg/dL Desirable Cholesterol: less than 200 mg/dL Borderline High Cholesterol: 200-239 mg/dL High Cholesterol: greater than 239 mg/dL LDL Calculated 64 <100 mg/dL Desirable LDL: less than 100 mg/dL Near Optimal/Above Optimal LDL: 110-129 mg/dL Borderline High LDL: 130-159 mg/dL High LDL: 160-189 mg/dL Very High LDL: greater than or equal to 190 mg/dL HDL 30 L >40 mg/dL Desirable HDL: greater than 40 mg/dL Note: This HDL assay may give artificially low results in patients with liver disease. Coding Level of Care Code Est Pt Level 4 (95965) Complex EM visit Add On G2211 Diagnoses Type 2 diabetes mellitus with other diabetic kidney complication E11.29 Diabetic neuropathy associated with diabetes mellitus due to underlying condition E08.40 Primary hypertension I10 Hypertension type: primary hypertension Pure hypercholesterolemia E78.00 Hyperlipidemia type: pure hypercholesterolemia Depression, major, recurrent, in remission F33.40 Additional Codes PHQ-9 - 75314 - PHQ-9 Billing: Yes ([id number]) Assessment & Plan Assessment & Plan (1) Type 2 diabetes mellitus with other diabetic kidney complication: Code(s): E11.29 - Type 2 diabetes mellitus with other diabetic kidney complication Category: Medical (2) Diabetic neuropathy associated with diabetes mellitus due to underlying condition: Code(s): E08.40 - Diabetes mellitus due to underlying condition with diabetic neuropathy, unspecified Category: Medical (3) Hypertension: Code(s): I10 - Essential (primary) hypertension Category: Medical Qualifiers: Hypertension type: primary hypertension Qualified Code(s): I10 - Essential (primary) hypertension (4) Hyperlipidemia: Code(s): E78.5 - Hyperlipidemia, unspecified Category: Medical Qualifiers: Hyperlipidemia type: pure hypercholesterolemia Qualified Code(s): E78.00 - Pure hypercholesterolemia, unspecified (5) Depression, major, recurrent, in remission: Code(s): F33.40 - Major depressive disorder, recurrent, in remission, unspecified Category: Medical Plan 1. Type 2 Diabetes Mellitus The patient's A1c has improved from 8.7 to 7.8 on metformin and Mounjaro 7.5 mg but remains above the target of less than 7.0. Average blood glucose is still elevated at 170 mg/dL. increased weekly Mounjaro dose to 10 mg to improve glycemic control and promote further weight loss. He will continue metformin 1000 mg twice daily. A referral will be made for a diabetic foot exam. The patient was advised he is overdue for his annual diabetic retinopathy screening and should schedule an appointment at [facility]. He will follow up in September after repeat labs, including an A1c and urinalysis. 2. Hypertension The patient's blood pressure is well-controlled on metoprolol 25 mg twice daily and lisinopril-HCTZ. He will continue his current medication regimen. 3. Hyperlipidemia Cholesterol levels are improved. The patient will continue taking atorvastatin every two days. 4. Depression The patient appears stable on his current regimen. A refill for venlafaxine 75 mg will be sent to his pharmacy. 5. Health Maintenance The patient is up to date on his influenza vaccination and dental care. He was advised to schedule his annual diabetic eye exam and a referral will be sent for a podiatry visit. Follow-up is scheduled for September. Patient was informed and verbally consented to the use of an ambient scribe for clinic note documentation during this visit. Orders: Orders Aspartate Amino Transferase 09/06/25 E08.40 - Diabetes mellitus due to underlying condition with diabetic neuropathy, unspecified, E11.29 - Type 2 diabetes mellitus with other diabetic kidney complication, E78.00 - Pure hypercholesterolemia, unspecified, F33.40 - Major depressive disorder, recurrent, in remission, unspecified, I10 - Essential (primary) hypertension Hemoglobin A1c 09/06/25 E08.40 - Diabetes mellitus due to underlying condition with diabetic neuropathy, unspecified, E11.29 - Type 2 diabetes mellitus with other diabetic kidney complication, E78.00 - Pure hypercholesterolemia, unspecified, F33.40 - Major depressive disorder, recurrent, in remission, unspecified, I10 - Essential (primary) hypertension Microalbumin, Random (w Creat) 09/06/25 E08.40 - Diabetes mellitus due to underlying condition with diabetic neuropathy, unspecified, E11.29 - Type 2 diabetes mellitus with other diabetic kidney complication, E78.00 - Pure hypercholesterolemia, unspecified, F33.40 - Major depressive disorder, recurrent, in remission, unspecified, I10 - Essential (primary) hypertension Basic Metabolic Panel Fasting 09/06/25 E08.40 - Diabetes mellitus due to underlying condition with diabetic neuropathy, unspecified, E11.29 - Type 2 diabetes mellitus with other diabetic kidney complication, E78.00 - Pure hypercholesterolemia, unspecified, F33.40 - Major depressive disorder, recurrent, in remission, unspecified, I10 - Essential (primary) hypertension Alanine Aminotransferase 09/06/25 E08.40 - Diabetes mellitus due to underlying condition with diabetic neuropathy, unspecified, E11.29 - Type 2 diabetes mellitus with other diabetic kidney complication, E78.00 - Pure hypercholesterolemia, unspecified, F33.40 - Major depressive disorder, recurrent, in remission, unspecified, I10 - Essential (primary) hypertension Vitamin D 25-OH Total 09/06/25 E08.40 - Diabetes mellitus due to underlying condition with diabetic neuropathy, unspecified, E11.29 - Type 2 diabetes mellitus with other diabetic kidney complication, E78.00 - Pure hyperch olesterolemia, unspecified, F33.40 - Major depressive disorder, recurrent, in remission, unspecified, I10 - Essential (primary) hypertension PSA,Total (Free>4and<10) 09/06/25 E08.40 - Diabetes mellitus due to underlying condition with diabetic neuropathy, unspecified, E11.29 - Type 2 diabetes mellitus with other diabetic kidney complication, E78.00 - Pure hypercholestero lemia, unspecified, F33.40 - Major depressive disorder, recurrent, in remission, unspecified, I10 - Essential (primary) hypertension Lipid Panel 09/06/25 E08.40 - Diabetes mellitus due to underlying condition with diabetic neuropathy, unspecified, E11.29 - Type 2 diabetes mellitus with other diabetic kidney complication, E78.00 - Pure hypercholesterolemia, unspecified, F33.40 - Major depressive disorder, recurrent, in remission, unspecified, I10 - Essential (primary) hypertension Referrals Podiatry Referral E08.40 - Diabetes mellitus due to underlying condition with diabetic neuropathy, unspecified, E11.29 - Type 2 diabetes mellitus with other diabetic kidney complication Medications: Changed From Mounjaro 7.5 mg (0.5 mL) subcut QWEEK 2 mL 5RF NS E08.40 - Diabetes mellitus due to underlying condition with diabetic neuropathy, unspecified, E11.29 - Type 2 diabetes mellitus with other diabetic kidney complication, E66.01 - Morbid (severe) obesity due to excess calories, E78.00 - Pure hyperchol esterolemia, unspecified, I10 - Essential (primary) hypertension To tirzepatide 10 mg (0.5 mL) subcut QWEEK 2 mL 5RF E08.40 - Diabetes mellitus due to underlying condition with diabetic neuropathy, unspecified, E11.29 - Type 2 diabetes mellitus with other diabetic kidney complication, E66.01 - Morbid (severe) obesity due to excess calories, E78.00 - Pure hypercholesterolemia, unspecified, I10 - Essential (primary) hypertension Refilled venlafaxine ER 75 mg PO DAILY 90 caps 4RF
--- OUTSIDE RECORDS SUMMARY | 2025-05-18 15:18 | XMS_ITS | Encounter Summary ---
Author Organization [employer] [facility] Address [address] [place] [address] Care Team Providers Care Sheet Hanger Name Role Phone Unavailable Primary Care Provider Unavailabl e Encounter Details Date Type Department Care Team (Latest Contact Info) Description 09/07/2020 Abstract [facility] CONVERSIONS Dental, Provider, DDS Social [...]
--- OUTSIDE RECORDS SUMMARY | 2025-05-18 15:18 | XMS_ITS | Clinical Summary ---
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
--- OUTSIDE RECORDS SUMMARY | 2025-05-18 15:18 | XMS_ITS | Clinical Summary ---
Author Organization [facility] Address [address] [place] [address] Care Team Providers Care Painter Decorator Name Role Phone Unavailable Primary Care Provider [...] complication, without long-term current use of insulin (CMS/[facility] V24, CMS/[facility] V28) 11/18/2018 DX:Type 2 diabetes mellitus without complication, without long-term current use of insulin (HCC) Type 2 diabetes mellitus wit hout complication, without long-term current use of insulin (CMS/[facility] V24, CMS/[facility] V28) 11/18/2018 DX:Type 2 diabetes mellitus without [...]
== END 2025-05-18 13:53 | disposition home or self-care (01) ==
LOC: HO.HMCC 13:09
PROVIDERS: PCP Internal Medicine; Visit Provider Internal Medicine
DX: E11.29 Type 2 diabetes mellitus with other diabetic kidney complication (principal); E11.40 Type 2 diabetes mellitus with diabetic neuropathy, unspecified; I10 Essential (primary) hypertension; E78.00 Pure hypercholesterolemia, unspecified; F33.40 Major depressive disorder, recurrent, in remission, unspecified

== ENCOUNTER → 2025-05-18 13:08 | Outpatient (BNVA) | payer OTHER, SELFPAY | PROVIDERS: PCP Internal Medicine; Visit Provider Internal Medicine | DX: E11.29 Type 2 diabetes mellitus with other diabetic kidney complication (principal); I10 Essential (primary) hypertension; E78.00 Pure hypercholesterolemia, unspecified; F33.40 Major depressive disorder, recurrent, in remission, unspecified; E08.40 Diabetes mellitus due to underlying condition with diabetic neuropathy, unspecified; Z79.84 Long term (current) use of oral hypoglycemic drugs; Z79.85 Long-term (current) use of injectable non-insulin antidiabetic drugs | CPT/HCPCS: 96127; 99212 ==